=== PATIENT | female | born 1955 | race Caucasian/White ===

== ENCOUNTER 2020-11-17 08:20 | Outpatient (CLI) | payer MEDICARE, SELFPAY ==
--- NOTE | ~2020-11-17 | DEXA_ITS ---
Bone Density Report Name: Phyllis Mchugh Age: 65 Sex: Female Ethnicity: White Date of : 1955 Indication: postmenopausal; screening for osteoporosis; height loss; hysterectomy; Referring Provider: Adan*Teddy Turcios Study: Bone densitometry was performed. Exam Date: November 17, 2020 Accession number: [id number] Bone Density: Region BMD T-score Z-score Classification AP Spine(L2, L3, L4) 1.184 1.0 2.9 Normal Femoral Neck (Left) 0.896 0.4 2.0 Normal Total Hip (Left) 1.048 0.9 2.2 Normal Femoral Neck (Right) 0.775 -0.7 0.9 Normal Total Hip (Right) 0.982 0.3 1.6 Normal Femoral Neck Mean 0.836 -0.1 1.5 Normal Total Hip Mean 1.015 0.6 1.9 Normal World Health Organization criteria for BMD impression classify patients as: Normal (T-score at or above -1.0), Osteopenia (T-score between -1.0 and -2.5), or Osteoporosis (T-score at or below -2.5). 10-year Fracture Risk: FRAX not reported because: All T-scores for Spine Total, Hip Total, Femoral Neck at or above -1.0 Clinical Information Provided by Patient: Has used the following medications: Vitamin D, Calcium Has the following medical conditions: Hysterectomy Patient maximum height was 60 Menopause Age: 37 Onset of menses at age 12 Number of children 1 Impression: The patient has normal bone mass. Discussion: BONE DENSITY IS ABOVE THE MINIMUM DESIRABLE LEVEL AT ALL SKELETAL SITES TESTED. This patient?s bone mineral density is above the minimum desirable level (T-score -1.0 or better) at all sites measured. The patient should follow a healthful lifestyle (good nutrition with adequate calcium and vitamin D, and appropriate weight-bearing exercise). Follow-Up: Consider repeating this study in 5 years or sooner if there is some new clinical indication. Reported by: Dr. Jonathan Mariano on 11/17/2020 8:51:00 AM. Reviewed, dictated and finalized at location AJohn GUADALUPE
== END 2020-11-17 08:21 | disposition home or self-care (01) ==
LOC: CHSIMG 08:26
PROVIDERS: PCP Family Medicine; Visit Provider Family Medicine
DX: Z78.0 Asymptomatic menopausal state (principal)
CPT/HCPCS: 77080

== ENCOUNTER 2023-04-09 07:46 | Outpatient (RCR) | payer MEDICARE, SELFPAY ==
--- NOTE | 2023-04-09 08:21 | OPREHPOC ---
Outpatient Therapy Plan of Care This is a Multidisciplinary Plan of Care that may contain components documented by all disciplines (PT, OT, and ST.) PT Problem 1 PT Problem #1 Knowledge Deficit PT Goal 1 Goal Patient to demonstrate independence with HEP Target Visit 6 PT Problem 2 PT Problem #2 Pain PT Goal 1 Goal 1. Patient to report highest pain at 2/10 2. Patient to report no sleep disturbance due to cervical pain Target Visit 9 PT Problem 3 PT Problem #3 Impaired Range of Motion PT Goal 1 Goal Patient to demonstrate 70 deg of B cervical rotation to return to driving and checking blind spot at PLOF Target Visit 9 PT Problem 4 PT Problem #4 Impaired Functional Mobil PT Goal 1 Goal Patient to report ability to sit to watch TV for > 1 hour with no increase in cervical pain or reports of headache Target Visit 9
--- NOTE | 2023-04-09 08:21 | PTOPEVAL1 ---
Assessment and note entered by Eunice Bourne DPT Evaluation Information Assessment Status Evaluation Diagnosis neck pain Onset 04/02/23 Subjective Information She reports in October she tripped when a young girl ran out in front of her and she fell to the L side and thinks she pulled a muscle in her neck. She reports pain comes and goes. She reports pain will radiate into the L shoulder and will give her headache. She reports pain is worse with turning to look over her shoulder when driving, sitting to watch tv and occassionally sleeping. She reports no history of neck pain prior. She reports she is retired. Reported Pain Level Pain Score 1: Self Report Assessment PT Clinical Summary Mrs. Mchugh is a 67 year old female who presents to PT with cervical pain. Patient demonstrates impaired posture, decreased cervical ROM and decreased flexibility of B upper traps impairing her ability to drive, sleep and sit for long periods of time. She would benefit from skilled PT to address impairments and return to PLOF. Plan of Care Interventions Electrical Stimulation,Hot Pack/Cold Pack,Manual Therapy,Mechanical Traction,Neuro Re-education, Patient/Caregiver Educati,Therapeutic Activities, Therapeutic Exercise PT Services Indicated Yes Treatment Frequency and 3x weekly for 9 visits Duration These treatments will address the objective and functional deficits as defined above. The patient will be advanced safely and appropriately in order for the patient to progress towards his/her prior level of function. Additional exercises will be introduced and as well as a comprehensive home exercise program upon discharge, if needed, ?to ensure carryover of functional gains achieved in the clinic. This treatment plan has been reviewed and agreement upon by the patient.
--- NOTE | 2023-04-26 08:09 | OPREHPOC ---
Outpatient Therapy Plan of Care This is a Multidisciplinary Plan of Care that may contain components documented by all disciplines (PT, OT, and ST.) PT Problem 1 PT Problem #1 Knowledge Deficit PT Goal 1 Goal Patient to demonstrate independence with HEP Target Visit 6 Progress Met PT Problem 2 PT Problem #2 Pain PT Goal 1 Goal 1. Patient to report highest pain at 2/10 2. Patient to report no sleep disturbance due to cervical pain Target Visit 15 Comment continue PT Problem 3 PT Problem #3 Impaired Range of Motion PT Goal 1 Goal Patient to demonstrate 70 deg of B cervical rotation to return to driving and checking blind spot at PLOF Target Visit 15 Comment continue PT Problem 4 PT Problem #4 Impaired Functional Mobil PT Goal 1 Goal Patient to report ability to sit to watch TV for > 1 hour with no increase in cervical pain or reports of headache Target Visit 15 Comment continue
--- NOTE | 2023-04-26 08:09 | PTOPREEVAL ---
Assessment and note entered by Eunice Bourne DPT Evaluation Information Assessment Status Re-evaluation Diagnosis neck pain Onset 04/02/23 Subjective Information Patient reports that since starting PT she has not been having as much pain and does not have as much tightness. She does notice tightness when looking over her left shoulder but does report it has improved. She reports she has not gotten any headaches recently. She reports she still has difficulty with sleeping. She reports she has been independent with HEP Reported Pain Level Pain Score 1: Self Report Assessment PT Clinical Summary Mrs. Mchugh has been seen for 9 visits of skilled PT with good progress towards goals. She demonstrates improved cervical ROM, decreased pain and improved upper trap length. She reports improved ability to drive but continues to report difficulty with sleeping and sitting to watch TV. She would benefit from continued skilled PT to address remaining impairments and return to PLOF. Plan of Care Interventions Electrical Stimulation,Hot Pack/Cold Pack,Manual Therapy,Mechanical Traction,Neuro Re-education, Patient/Caregiver Educati,Therapeutic Activities, Therapeutic Exercise PT Services Indicated Yes Treatment Frequency and continue 2x weekly for 6 visits Duration These treatments will address the objective and functional deficits as defined above. The patient will be advanced safely and appropriately in order for the patient to progress towards his/her prior level of function. Additional exercises will be introduced and as well as a comprehensive home exercise program upon discharge, if needed, ?to ensure carryover of functional gains achieved in the clinic. This treatment plan has been reviewed and agreement upon by the patient.
--- NOTE | 2023-05-17 09:42 | OPREHPOC ---
Outpatient Therapy Plan of Care This is a Multidisciplinary Plan of Care that may contain components documented by all disciplines (PT, OT, and ST.) PT Problem 1 PT Problem #1 Knowledge Deficit PT Goal 1 Goal Patient to demonstrate independence with HEP Target Visit 6 Progress Met PT Problem 2 PT Problem #2 Pain PT Goal 1 Goal 1. Patient to report highest pain at 2/10 2. Patient to report no sleep disturbance due to cervical pain Target Visit 15 Progress Not Met Comment continue PT Problem 3 PT Problem #3 Impaired Range of Motion PT Goal 1 Goal Patient to demonstrate 70 deg of B cervical rotation to return to driving and checking blind spot at PLOF Target Visit 15 Progress Not Met Comment continue PT Problem 4 PT Problem #4 Impaired Functional Mobil PT Goal 1 Goal Patient to report ability to sit to watch TV for > 1 hour with no increase in cervical pain or reports of headache Target Visit 15 Progress Met Comment continue
--- NOTE | 2023-05-17 09:42 | PTOPDC ---
Assessment and note entered by Eunice Bourne DPT Evaluation Information Assessment Status Re-evaluation Diagnosis neck pain Onset 04/02/23 Subjective Information Patient reports she has improved since starting PT . She reports she continues to feel like she is tight . She denies recent headaches. She reports she can watch tv and drive with no limitations. Reported Pain Level Pain Score 1: Self Report Assessment PT Clinical Summary Mrs. Mchugh was seen for 15 visits of skilled PT. She did not meet all goals but made good progress towards all. She continues to lack cervical ROM but reports she has been able to check her blind spot when driving with no limitaitons. She reports no headaches. She is independent with HEP and is appropriate for DC at this time. Plan of Care PT Services Indicated No
== END 2023-05-17 16:21 | disposition home or self-care (01) ==
LOC: CHSPT 07:46
PROVIDERS: PCP Family Medicine; Visit Provider Family Medicine
DX: M54.12 Radiculopathy, cervical region (principal)
CPT/HCPCS: 97012; 97014; 97110; 97140; 97161; G0283

== ENCOUNTER 2023-06-18 07:29 | Outpatient (RCR) | payer MEDICARE, SELFPAY ==
--- NOTE | 2023-06-18 13:19 | OPREHPOC ---
Outpatient Therapy Plan of Care This is a Multidisciplinary Plan of Care that may contain components documented by all disciplines (PT, OT, and ST.) PT Problem 1 PT Problem #1 Knowledge Deficit PT Goal 1 Goal Patient to demonstrate independence with HEP Target Visit 5 PT Problem 2 PT Problem #2 Pain PT Goal 1 Goal 1. Patient to report highest pain at 2/10 2. Patient to report ability to sleep with no disturbance due to neck and shoulder pain Target Visit 10 PT Problem 3 PT Problem #3 Impaired Strength PT Goal 1 Goal Patient to demonstrate 5/5 strength of R shoulder to return to lifting for house hold tasks at PLOF Target Visit 10 PT Problem 4 PT Problem #4 Impaired Functional Mobil PT Goal 1 Goal 1. Patient to improve NDI by 20% 2. Patient to report ability to complete laundry tasks with no limitations 3. Patient to return to lifting 20# from floor to waist with no increase in pain Target Visit 10
--- NOTE | 2023-06-18 13:20 | PTOPEVAL1 ---
Assessment and note entered by Eunice Bourne DPT Evaluation Information Assessment Status Evaluation Diagnosis cervical pain, R shoulder pain Onset 06/14/23 Subjective Information Patient reports she started taking Levaquin on . Shortly after she developed neck pain, R shoulder pain and L hip pain. She sees an brake reliner who told patient that a reaction to Levaquin can be joint pain, weakness and increased risk of tears. She reports she was coming for neck pain a few months ago and was feeling good until starting the antibiotic. She has difficulty with lifting, completing house hold tasks, and sleeping. Prior to onset of this occurrence patient did not have R shoulder pain. Reported Pain Level Pain Score 2,0: Self Report Assessment PT Clinical Summary Mrs. Mchugh is a 68 year old female who presents to PT with cervical and R shoulder pain. She demonstrates decreased L cervical rotation, decreased R shoulder strength and impaired posture limiting her ability to lift, complete house hold tasks, and sleep. She would benefit from skilled PT to address impairments and return to PLOF. Plan of Care Interventions Electrical Stimulation,Gait Training,Hot Pack/Cold Pack,Manual Therapy,Mechanical Traction,Neuro Re- education,Patient/Caregiver Educati,Therapeutic Activities,Therapeutic Exercise PT Services Indicated Yes Treatment Frequency and 2x weekly for 10 visits Duration These treatments will address the objective and functional deficits as defined above. The patient will be advanced safely and appropriately in order for the patient to progress towards his/her prior level of function. Additional exercises will be introduced and as well as a comprehensive home exercise program upon discharge, if needed, ?to ensure carryover of functional gains achieved in the clinic. This treatment plan has been reviewed and agreement upon by the patient.
--- NOTE | 2023-06-26 08:02 | OPREHPOC ---
Outpatient Therapy Plan of Care This is a Multidisciplinary Plan of Care that may contain components documented by all disciplines (PT, OT, and ST.) PT Problem 1 PT Problem #1 Knowledge Deficit PT Goal 1 Goal Patient to demonstrate independence with HEP Target Visit 5 PT Problem 2 PT Problem #2 Pain PT Goal 1 Goal 1. Patient to report highest pain at 2/10 2. Patient to report ability to sleep with no disturbance due to neck and shoulder pain 3. patient to report no more than 2/10 pain in the L hip Target Visit 10 PT Problem 3 PT Problem #3 Impaired Strength PT Goal 1 Goal Patient to demonstrate 5/5 strength of R shoulder to return to lifting for house hold tasks at PLOF patient to demonstrate 4+/5 or greater bilateral hip strength Target Visit 10 PT Problem 4 PT Problem #4 Impaired Functional Mobil PT Goal 1 Goal 1. Patient to improve NDI by 20% 2. Patient to report ability to complete laundry tasks with no limitations 3. Patient to return to lifting 20# from floor to waist with no increase in pain 4. patient to display normal gait mechanics 5. patient to ambulate 1000ft or more in 6 minute walk test Target Visit 10
--- NOTE | 2023-06-26 08:02 | PTOPPROG ---
Assessment and note entered by JT File, PT Evaluation Information Assessment Status Progress Diagnosis cervical pain, R shoulder pain, L HIP PAIN Onset 06/14/23 Subjective Information patient reports at the time her neck and R shoulder pain began, she also began to have pain in the L hip. she reports on 05/29/23 she was laid up for several days with illness. she reports she was taking levaquin and believes she had a bad reaction to this med. she reports the neck and the R shoulder are better, but the L hip pain has continued. she reports she did have a bit of back pain at the time of being laid up, but it is better now. she reports she has had xrays of the L hip and lower back and reports minimal OA in the L hip, but severe lumbar spondylosis in the back. she reports the L hip really hurts in the hip flexor and her bursa. she reports she has pain increased when she goes to take a step. Assessment PT Clinical Summary mrs. johnston presents to skilled PT today with declining pain in the neck and R shoulder. however , her pain in the L hip continues to be problematic and impact her walking. she presents with tenderness to palpation on the L hip flexors and trochanteric bursa, decreased L hip strength, and antalgic gait mechanics. she would benefit from continued skilled PT with greater focus now on the L hip as this is her most problematic area. her goal is to stand and walk without pain or antalgia. Plan of Care Interventions Electrical Stimulation,Gait Training,Hot Pack/Cold Pack,Manual Therapy,Mechanical Traction,Neuro Re- education,Patient/Caregiver Educati,Therapeutic Activities,Therapeutic Exercise PT Services Indicated Yes Treatment Frequency and continue skilled PT with remaining visits on POC, Duration but shift focus towards the L hip. These treatments will address the objective and functional deficits as defined above. The patient will be advanced safely and appropriately in order for the patient to progress towards his/her prior level of function. Additional exercises will be introduced and as well as a comprehensive home exercise program upon discharge, if needed, ?to ensure carryover of functional gains achieved in the clinic. This treatment plan has been reviewed and agreement upon by the patient.
--- NOTE | 2023-07-19 08:35 | OPREHPOC ---
Outpatient Therapy Plan of Care This is a Multidisciplinary Plan of Care that may contain components documented by all disciplines (PT, OT, and ST.) PT Problem 1 PT Problem #1 Knowledge Deficit PT Goal 1 Goal Patient to demonstrate independence with HEP Target Visit 5 Progress Met PT Problem 2 PT Problem #2 Pain PT Goal 1 Goal 1. Patient to report highest pain at 2/10 2. Patient to report ability to sleep with no disturbance due to neck and shoulder pain 3. patient to report no more than 2/10 pain in the L hip Target Visit 10 Progress Met PT Problem 3 PT Problem #3 Impaired Strength PT Goal 1 Goal Patient to demonstrate 5/5 strength of R shoulder to return to lifting for house hold tasks at PLOF patient to demonstrate 4+/5 or greater bilateral hip strength Target Visit 10 Progress Met PT Problem 4 PT Problem #4 Impaired Functional Mobil PT Goal 1 Goal 1. Patient to improve NDI by 20% 2. Patient to report ability to complete laundry tasks with no limitations 3. Patient to return to lifting 20# from floor to waist with no increase in pain 4. patient to display normal gait mechanics 5. patient to ambulate 1000ft or more in 6 minute walk test Target Visit 10 Progress Met
--- NOTE | 2023-07-19 08:35 | PTOPDC ---
Assessment and note entered by Eunice oRwley DPT Evaluation Information Assessment Status Discharge Diagnosis cervical pain, R shoulder pain, L HIP PAIN Onset 06/14/23 Subjective Information patient reports her neck and shoulder have not had any pain. she reports her hip pain has been very minimal. she states she has been able to return to all previous activities. she is independent with HEP Reported Pain Level Pain Score 1,0,0: Self Report Assessment PT Clinical Summary Mrs. Mchugh has attended 10 visits of skilled PT with significant progress and has met all goals. She reports she has been able to return to all daily activities at [facility]. She has improved strength, ROM and gait. She is independent with HEP and is appropriate for DC at this time. Plan of Care PT Services Indicated No
== END 2023-07-19 10:12 | disposition home or self-care (01) ==
LOC: CHSPT 07:29
PROVIDERS: PCP Family Medicine; Visit Provider Family Medicine
DX: M54.12 Radiculopathy, cervical region (principal)
CPT/HCPCS: 97014; 97110; 97140; 97150; 97161; G0283

== ENCOUNTER 2023-06-21 14:07 | Outpatient (CLI) | payer MEDICARE, SELFPAY ==
--- NOTE | ~2023-06-21 | XR_ITS ---
EXAMINATION: XR lumbar spine 2-3V DATE: 06/21/2023 14:42 INDICATION: Left hip pain. TECHNIQUE: 3 views of lumbar spine were obtained. COMPARISON: None. FINDINGS: There is 13 degrees dextroscoliosis of lumbar spine. There is 4 mm retrolisthesis of L2 on L3 and 3 mm retrolisthesis of L3 on L4 and L4 on L5. Vertebral body heights are normal. There is mode rately decreased disc height at L1-L2 and severely decreased disc height from L2-L3 through L5-S1 wit h endplate remodeling. There is multilevel severe facet joint osteoarthritis. IMPRESSION: 1. Severe lumbar spondylosis. 2. Lumbar dextroscoliosis. Reviewed, dictated and finalized at location E. LLITE MANAGER
--- NOTE | ~2023-06-21 | XR_ITS ---
EXAMINATION: XR hip LT min 2V DATE: 06/21/2023 14:42 INDICATION: Left hip pain TECHNIQUE: Anteroposterior and frog-leg lateral views of the left hip were obtained. COMPARISON: None. FINDINGS: Alignment is normal. No fracture. No suspected osteonecrosis. Mild left hip osteoarthritis minimal ax ial predominant nonuniform joint space narrowing and small marginal osteophytes about the femoral hea d and acetabulum. Several phleboliths in the pelvis. Soft tissues are unremarkable. IMPRESSION: 1. Mild left hip osteoarthritis. Reviewed, dictated and finalized at location A. LY PSYCHOLOGIST
== END 2023-06-21 14:08 | disposition home or self-care (01) ==
LOC: CHSIMG 14:09
PROVIDERS: PCP Internal Medicine; Visit Provider Internal Medicine
DX: M25.552 Pain in left hip (principal); M43.06 Spondylolysis, lumbar region; M41.86 Other forms of scoliosis, lumbar region; M16.12 Unilateral primary osteoarthritis, left hip
CPT/HCPCS: 72100; 73502

== ENCOUNTER 2024-03-02 14:17 | Outpatient (RCR) | payer MEDICARE, SELFPAY ==
--- NOTE | 2024-03-02 15:28 | PTOPEVAL1 ---
Assessment and note entered by Brian Rothman Evaluation Information Assessment Status Evaluation ICD-10 Condition Codes (PT) M25.572 Onset 12/28/23 Subjective Information Pt. reports that she developed left ankle pain on 12/28/23. She reports that she was walking in heels and rolled the ankle into a described inversion sprain on the left. She reports that pain was not initial, but worsened by the next day . She reports she went to the doctor and underwent x-ray and MRI. MRI revealed an osteochondral defect at the left ankle. She describes pain on the inside of the left ankle. She states that pain is noticeable with standing activities. She reports that she cannot comfortably wear dress shoes and feels more stable in her tennis shoes. She reports that her goal is to improve her ankle strength and decrease her pain. Reported Pain Level Pain Score 1: Self Report Assessment PT Clinical Summary Pt. is a 68 year old female who enters the clinic with left ankle pain following described left ankle inversion sprain. she presents with indications of chronic instability at the right and left ankle. She currently presents with ankle and hip weakness, instability at the bilateral ankles, pain and impaired gait. Continued skilled PT is indicated in order to improve these areas to allow the pt. to be able to participate in all IADL's with improved comfort and decreased risk of future injury. Plan of Care Interventions Electrical Stimulation,Gait Training,Hot Pack/Cold Pack,Manual Therapy,Neuro Re-education,Patient/ Caregiver Educati,Therapeutic Activities, Therapeutic Exercise PT Services Indicated Yes Treatment Frequency and 2x/week x 8 visits Duration These treatments will address the objective and functional deficits as defined above. The patient will be advanced safely and appropriately in order for the patient to progress towards his/her prior level of function. Additional exercises will be introduced and as well as a comprehensive home exercise program upon discharge, if needed, ?to ensure carryover of functional gains achieved in the clinic. This treatment plan has been reviewed and agreement upon by the patient.
--- NOTE | 2024-03-02 15:28 | OPREHPOC ---
Outpatient Therapy Plan of Care This is a Multidisciplinary Plan of Care that may contain components documented by all disciplines (PT, OT, and ST.) PT Problem 1 PT Problem #1 Knowledge Deficit PT Goal 1 Goal / Goal Update Pt. will be independent with a HEP addressing ankle strength and stability Target Visit 2 PT Problem 2 PT Problem #2 Impaired Strength PT Goal 1 Goal / Goal Update Pt. will demonstrate 4+/5 or greater bilateral hip abduction strength Pt. will maintain SLS on both right and left without support for 30 seconds or greater with no LOB. Target Visit 8 PT Problem 3 PT Problem #3 Impaired Functional Mobil PT Goal 1 Goal / Goal Update Pt. will demonstrate ability to walk outdoors on uneven terrain for duration of 10 minutes without pain increase and no indication of instability. Target Visit 8
--- NOTE | 2024-03-25 08:40 | OPREHPOC ---
Outpatient Therapy Plan of Care This is a Multidisciplinary Plan of Care that may contain components documented by all disciplines (PT, OT, and ST.) PT Problem 1 PT Problem #1 Knowledge Deficit PT Goal 1 Goal / Goal Update Pt. will be independent with a HEP addressing ankle strength and stability Target Visit 2 Progress Met PT Problem 2 PT Problem #2 Impaired Strength PT Goal 1 Goal / Goal Update Pt. will demonstrate 4+/5 or greater bilateral hip abduction strength Pt. will maintain SLS on both right and left without support for 30 seconds or greater with no LOB. Target Visit 8 Progress Met PT Problem 3 PT Problem #3 Impaired Functional Mobil PT Goal 1 Goal / Goal Update Pt. will demonstrate ability to walk outdoors on uneven terrain for duration of 10 minutes without pain increase and no indication of instability. Target Visit 8 Progress Met
--- NOTE | 2024-03-25 08:40 | PTOPDC ---
Assessment and note entered by JT File, PT Evaluation Information Assessment Status Discharge ICD-10 Condition Codes (PT) M25.572 Onset 12/28/23 Subjective Information patient reports the ankle feels great today. she reports she has had no more than 1/10 pain in the L ankle in the last week or more. she reports she only has issues when up and active for a long time. she reports she is able to recuperate with exercises, ice, and rest. she reports she feels she is ready to DC therapy today. Reported Pain Level Pain Score 0: Self Report Pain Score 1: Self Report Assessment PT Clinical Summary mrs. johnston presents to skilled PT services for her 8th skilled PT visit. she displays full L ankle strength, and achievement of all goals for skilled PT today. patient is compliant with her HEP, and ready for DC today. Plan of Care PT Services Indicated Yes
== END 2024-03-25 09:33 | disposition home or self-care (01) ==
LOC: CHSPT 14:17
DX: M25.572 Pain in left ankle and joints of left foot (principal)
CPT/HCPCS: 97110; 97112; 97140; 97161

== ENCOUNTER 2024-04-09 16:20 | Emergency (ER) | payer MEDICARE, SELFPAY ==
--- NOTE | ~2024-04-09 | XR_ITS ---
XR ankle RT min 3V Ordering provider: Karson Sherman DO History: . RT ankle pain/tender to the touch after rolling X 1 hour [employer] . Comparison: None. FINDINGS: BONES: Undisplaced Fracture of the lateral malleolus tip. JOINT SPACES: Normal. SOFT TISSUES: Soft tissue swelling over the lateral malleolus. Calcaneus spur. Ossification of the insertion of the tendo Achilles. IMPRESSION: Fracture lateral malleolus with no displacement. Reviewed, dictated and finalized at location [facility] [employer]
[2024-04-09 16:23] VITALS: BP 186/83; PULSE 86; RESP 18; TEMP 36.6; O2SAT 99
--- NOTE | 2024-04-09 16:26 | ED.GENADULT ---
HPI - General Adult General Chief complaint: Extremity Injury, Lower Stated complaint: right ankle pain Time Seen by Provider: 04/09/24 16:21 History of Present Illness HPI narrative: Phyllis presented to the ED after she rolled her right ankle in a hole in the parking lot and had pain in the posterior lateral ankle. No other injuries reported. Related Data Home Medications Medication Instructions Recorded Confirmed albuterol 90 mcg-budesonide 80 2 inh inhalation Q4H 04/09/24 04/09/24 mcg/actuation HFA aerosol inhaler (Airsupra) azelastine 137 mcg (0.1 %) nasal 1 - 2 spray intranasal BID 04/09/24 04/09/24 spray budesonide 0.5 mg/2 mL suspension 0.5 mg inhalation DIRECTED 04/09/24 04/09/24 for nebulization montelukast 10 mg tablet 10 mg PO DAILY 04/09/24 04/09/24 rosuvastatin 20 mg tablet 20 mg PO DAILY 04/09/24 04/09/24 Allergies Allergy/AdvReac Type Severity Reaction Status Date / Time codeine Allergy Unknown Unknown Unverified 04/09/24 16:25 levofloxacin [From Levaquin] Allergy Unknown Unknown Verified 04/09/24 16:25 TAPE Allergy Unknown Unknown Uncoded 04/09/24 16:25 Review of Systems Review of Systems: All systems reviewed & are unremarkable except as noted in HPI and below Exam Const: General: cooperative, healthy appearing, comfortable, no acute distress, well developed, alert, awake and Physically active Orientation/consciousness: oriented to person, oriented to place and oriented to time HENMT: Head: normal to inspection, normocephalic and atraumatic Ears: hearing grossly normal bilaterally and external ears normal Face/Nose/Sinus: Normal external nose present Eyes: General: appearance normal, both eyes and all related structures Periorbital: periorbital findings normal Sclera: sclerae normal Pupils: Equal, round and reactive pupils present Neck: Neck: normal visual inspection Chest: Chest palpation & inspection: normal inspection of the chest Resp: Effort & Inspection: normal respiratory effort, able to speak in complete sentences and no respiratory distress Cardio: Jugular venous distension: no JVD Skin: General skin exam: normal color and no rashes or lesions noted Neuro: General: oriented to person, oriented to place and oriented to time Cranial nerves: Yes Equal, round and reactive pupils present Extrem: General: normal to inspection Other: Right lateral posterior ankle was TTP. No other spots were tender. No deformity or discoloration Course Course Emergency Course: Declined pain meds. XR ankle RT min 3V Ordering provider: Karson Sherman DO History: . RT ankle pain/tender to the touch after rolling X 1 hour [employer] . Comparison: None. FINDINGS: BONES: Undisplaced Fracture of the lateral malleolus tip. JOINT SPACES: Normal. SOFT TISSUES: Soft tissue swelling over the lateral malleolus. Calcaneus spur. Ossification of the insertion of the tendo Achilles. IMPRESSION: Fracture lateral malleolus with no displacement. Vital Signs Vital signs: Vital Signs Temperature 97.9 F 04/09/24 16:23 Pulse Rate 86 04/09/24 16:23 Respiratory Rate 18 04/09/24 16:23 Blood Pressure 186/83 H 04/09/24 16:23 Pulse Oximetry 99 04/09/24 16:23 Oxygen Delivery Room Air 04/09/24 16:23 Temperature 97.9 F 04/09/24 16:23 Pulse Rate 86 04/09/24 16:23 Respiratory Rate 18 04/09/24 16:23 Blood Pressure 186/83 H 04/09/24 16:23 Pulse Oximetry 99 04/09/24 16:23 Oxygen Delivery Room Air 04/09/24 16:23 Medical Decision Making Vital Signs Vital Signs: Vital Signs Temperature 97.9 F 04/09/24 16:23 Pulse Rate 86 04/09/24 16:23 Respiratory Rate 18 04/09/24 16:23 Blood Pressure 186/83 H 04/09/24 16:23 Pulse Oximetry 99 04/09/24 16:23 Oxygen Delivery Room Air 04/09/24 16:23 Temperature 97.9 F 04/09/24 16:23 Pulse Rate 86 04/09/24 16:23 Respiratory Rate 18 04/09/24 16:23 Blood Pressure 186/83 H 04/09/24 16:23 Pulse Oximetry 99 04/09/24 16:23 Oxygen Delivery Room Air 04/09/24 16:23 Discharge Plan Discharge Clinical Impression: Ankle fracture, lateral malleolus, closed Patient Disposition: Home, Self-Care Condition: Stable Instructions: Ankle Fracture (ED) Prescriptions: New hydrocodone-acetaminophen 5-325 mg tablet 1 tablet PO Q8H PRN (Reason: pain) Qty: 10 0RF No Action budesonide 0.5 mg/2 mL suspension for nebulization 0.5 mg inhalation DIRECTED montelukast 10 mg tablet 10 mg PO DAILY azelastine 137 mcg (0.1 %) spray,non-aerosol 1 - 2 spray INTRANASAL BID rosuvastatin 20 mg tablet 20 mg PO DAILY Airsupra 90-80 mcg/actuation HFA aerosol inhaler 2 inh INHALATION Q4H Follow-up/Referrals: Khoi Angulo MD [Primary Care Provider] -
[2024-04-09 16:32] VITALS: BP 155/92
[2024-04-09 17:07] VITALS: BP 147/81; PULSE 80; RESP 16; TEMP 36.6; O2SAT 100
== END 2024-04-09 17:07 | disposition home or self-care (01) ==
LOC: CHSED 17:01
PROVIDERS: Emergency Provider Family Medicine; PCP Internal Medicine
DX: S82.61XA Displaced fracture of lateral malleolus of right fibula, initial encounter for closed fracture (principal); Z79.899 Other long term (current) drug therapy; X50.0XXA Overexertion from strenuous movement or load, initial encounter
CPT/HCPCS: 29515; 73610; 99284

== ENCOUNTER 2024-04-21 13:33 | Outpatient (CLI) | payer MEDICARE, SELFPAY ==
[2024-04-22 11:08] LABS: Homocysteine 8.9 umol/L (<10.4)
[2024-04-23 15:18] LABS: Lupus dRVVT Confirmation NEGATIVE (NEGATIVE); Lupus dRVVT Screen 61 sec (< OR = 45); PTT-LA Screen 33 sec (< OR = 40)
[2024-04-24 09:53] LABS: Protein S Antigen, Free 152 % normal (50-147); Protein S Antigen, Total 152 % normal (70-140)
[2024-04-24 21:38] LABS: Antithrombin III Activity 103 % normal (80-135)
[2024-04-25 03:23] LABS: APC Ratio 5.1 ratio (>=2.1)
[2024-04-25 04:29] LABS: Anti Cardio Antibody IgM <2.0 MPL-U/mL; Anti Cardiolipin Antibody IgA <2.0 APL-U/mL; Anti Cardiolipin Antibody IgG <2.0 GPL-U/mL
[2024-04-26 20:08] LABS: Factor VIII Activity 101 % normal (50-180)
[2024-04-30 16:25] LABS: Reference Lab Test Name FACTOR V (LEIDEN)
== END 2024-04-21 13:34 | disposition home or self-care (01) ==
LOC: CHSLAB 13:35
PROVIDERS: PCP Internal Medicine; Visit Provider Internal Medicine
DX: I82.409 Acute embolism and thrombosis of unspecified deep veins of unspecified lower extremity (principal)
CPT/HCPCS: 36415; 81240; 81241; 81291; 83090; 85240; 85300; 85303; 85305; 85306; 85307; 85597; 85598; 85613; 85670; 85730; 86146; 86147

== ENCOUNTER 2024-05-27 08:30 | Outpatient (RCR) | payer MEDICARE, SELFPAY ==
--- NOTE | 2024-05-27 09:47 | OPREHPOC ---
Outpatient Therapy Plan of Care This is a Multidisciplinary Plan of Care that may contain components documented by all disciplines (PT, OT, and ST.) PT Problem 1 PT Problem #1 Knowledge Deficit PT Goal 1 Goal / Goal Update The patient will be independent in a home exercise program. Target Visit 4 PT Problem 2 PT Problem #2 Pain PT Goal 1 Goal / Goal Update The patient will report no greater than 1/10 right ankle pain with return to ambulation without an AD and full weight bearing on the right LE. Target Visit 16 PT Problem 3 PT Problem #3 Impaired Functional Mobility PT Goal 1 Goal / Goal Update The patient will demonstrate 30% or less self perceived disability per the LEFS questionnaire. The patient will ambulate 1,000 feet with the least restrictive assistive device during the 6 minute walk test to improve community ambulation. Target Visit 16 PT Problem 4 PT Problem #4 Impaired Range of Motion PT Goal 1 Goal / Goal Update The patient will demonstrate 10 degrees of right ankle dorsiflexion and 50 degrees of right ankle plantarflexion to improve gait. Target Visit 8 PT Problem 5 PT Problem #5 Impaired Strength PT Goal 1 Goal / Goal Update The patient will demonstrate 5/5 right ankle strength in all planes. The patient will demonstrate the ability to perform 10 repetitions of right single leg heel raises. Target Visit 16
--- NOTE | 2024-05-27 09:47 | PTOPEVAL1 ---
Assessment and note entered by Sarah Vega, PT Evaluation Information Assessment Status Evaluation Diagnosis s/p R ankle fx ICD-10 Condition Codes (PT) Pain in right ankle and joints of right foot M25. 571 Onset 04/09/24 Subjective Information Phyllis Mchugh reports she was walking in a parking lot and she hit a small hole with her heel and twisted her ankle. She fell to the ground and had to have help getting up because she could not put weight on it. She reports the ankle swelled up immediately so she went to the ER. She had x- rays that showed a fracture. She called her water treatment specialist on 04/13/24 and was put in a casted splint to allow swelling to go down. She had a doppler to check for blood clots before casting it. She had 4 small clots so she was kept in a boot and started on Eliquis. She was non- weight bearing for last 6 weeks and has been using a knee scooter. She has been going up and down stairs on her knees to get in and out of her house . She was allowed to start putting weight on the right LE last week and began using a walker around the house. She has not had a lot of pain recently even with began to start weight bearing. She has not been driving since the injury. She reports she is afraid of falling. Reported Pain Level Pain Score 0: Self Report Assessment PT Clinical Summary Phyllis Mchugh presents nearly 7 weeks s/p right lateral malleolus ankle fracture. She is reporting difficulty with walking, standing, driving, and navigating stairs. She objectively demonstrates decreased right ankle AROM, decreased right ankle strength, impaired gait, impaired balance, and decreased functional abilities. She will benefit from skilled PT to address these limitations. Plan of Care Interventions Electrical Stimulation,Gait Training,Hot Pack/Cold Pack,Intermittent Compression Pump,Manual Therapy ,Neuro Re-education,Patient/Caregiver Education, Therapeutic Activities,Therapeutic Exercise PT Services Indicated Yes Treatment Frequency and 2 times a week for 8 visits Duration These treatments will address the objective and functional deficits as defined above. The patient will be advanced safely and appropriately in order for the patient to progress towards his/her prior level of function. Additional exercises will be introduced and as well as a comprehensive home exercise program upon discharge, if needed, ?to ensure carryover of functional gains achieved in the clinic. This treatment plan has been reviewed and agreement upon by the patient.
--- NOTE | 2024-06-11 10:03 | OPREHPOC ---
Outpatient Therapy Plan of Care This is a Multidisciplinary Plan of Care that may contain components documented by all disciplines (PT, OT, and ST.) PT Problem 1 PT Problem #1 Knowledge Deficit PT Goal 1 Goal / Goal Update The patient will be independent in a home exercise program. Target Visit 4 Progress Met PT Goal 2 Goal / Goal Update continue to progress as weight bearing status changes Target Visit 16 PT Problem 2 PT Problem #2 Pain PT Goal 1 Goal / Goal Update The patient will report no greater than 1/10 right ankle pain with return to ambulation without an AD and full weight bearing on the right LE. Target Visit 16 Progress Partially Met PT Goal 2 Goal / Goal Update continue PT Problem 3 PT Problem #3 Impaired Functional Mobility PT Goal 1 Goal / Goal Update The patient will demonstrate 30% or less self perceived disability per the LEFS questionnaire. The patient will ambulate 1,000 feet with the least restrictive assistive device during the 6 minute walk test to improve community ambulation. Target Visit 16 Progress Partially Met PT Goal 2 Goal / Goal Update continue PT Problem 4 PT Problem #4 Impaired Range of Motion PT Goal 1 Goal / Goal Update The patient will demonstrate 10 degrees of right ankle dorsiflexion and 50 degrees of right ankle plantarflexion to improve gait. Target Visit 8 Progress Partially Met PT Goal 2 Goal / Goal Update continue Target Visit 16 PT Problem 5 PT Problem #5 Impaired Strength PT Goal 1 Goal / Goal Update The patient will demonstrate 5/5 right ankle strength in all planes. The patient will demonstrate the ability to perform 10 repetitions of right single leg heel raises. Target Visit 16 Progress Not Met PT Goal 2 Goal / Goal Update continue
--- NOTE | 2024-06-11 10:04 | PTOPPROG ---
Assessment and note entered by Sarah Vega, PT Evaluation Information Assessment Status Progress Diagnosis s/p R ankle fx ICD-10 Condition Codes (PT) Pain in right ankle and joints of right foot M25. 571 Onset 04/09/25 Subjective Information Phyllis Mchugh reports her right ankle is doing well. She has not been having pain in it lately. She continues to wear the boot at all times and has been walking with just one crutch when she is out and about and no AD in her home. She will see her doctor on 06/15/24 and is hoping she will be able to start weaning away from the boot. Assessment PT Clinical Summary Phyllis Mchugh has completed 6 skilled PT visits following a right ankle fracture sustained on 07/06. She is reporting no pain in the right ankle and foot and has been wearing her boot at all times. She demonstrates improved right ankle ROM and has been progressing with ankle strengthening in non-weight bearing and performing functional LE strengthening in closed kinetic chain with her right ankle boot on. She has been able to progress from bilateral axillary crutches to no AD with the boot while ambulating in the clinic. She is still utilizing one axillary crutch and the boot when ambulating in public places. She continues to have decreased right ankle and foot strength and stability, decreased balance, and impaired gait. She will continue to benefit from skilled PT to further address these limitations. Plan of Care Interventions Gait Training,Patient/Caregiver Education, Therapeutic Activities,Therapeutic Exercise PT Services Indicated Yes Treatment Frequency and Continue 2 times a week for 8 additional visits Duration These treatments will address the objective and functional deficits as defined above. The patient will be advanced safely and appropriately in order for the patient to progress towards his/her prior level of function. Additional exercises will be introduced and as well as a comprehensive home exercise program upon discharge, if needed, ?to ensure carryover of functional gains achieved in the clinic. This treatment plan has been reviewed and agreement upon by the patient.
--- NOTE | 2024-07-09 09:42 | OPREHPOC ---
Outpatient Therapy Plan of Care This is a Multidisciplinary Plan of Care that may contain components documented by all disciplines (PT, OT, and ST.) PT Problem 1 PT Problem #1 Knowledge Deficit PT Goal 1 Goal / Goal Update The patient will be independent in a home exercise program. Target Visit 4 Progress Met PT Goal 2 Goal / Goal Update continue to progress as weight bearing status changes Target Visit 16 Progress Met PT Problem 2 PT Problem #2 Pain PT Goal 1 Goal / Goal Update The patient will report no greater than 1/10 right ankle pain with return to ambulation without an AD and full weight bearing on the right LE. Target Visit 16 Progress Met PT Goal 2 Goal / Goal Update continue Progress Met PT Problem 3 PT Problem #3 Impaired Functional Mobility PT Goal 1 Goal / Goal Update The patient will demonstrate 30% or less self perceived disability per the LEFS questionnaire. The patient will ambulate 1,000 feet with the least restrictive assistive device during the 6 minute walk test to improve community ambulation. Target Visit 16 Progress Met PT Goal 2 Goal / Goal Update continue Progress Met PT Problem 4 PT Problem #4 Impaired Range of Motion PT Goal 1 Goal / Goal Update The patient will demonstrate 10 degrees of right ankle dorsiflexion and 50 degrees of right ankle plantarflexion to improve gait. Target Visit 8 Progress Met PT Goal 2 Goal / Goal Update continue Target Visit 16 Progress Met PT Problem 5 PT Problem #5 Impaired Strength PT Goal 1 Goal / Goal Update The patient will demonstrate 5/5 right ankle strength in all planes. The patient will demonstrate the ability to perform 10 repetitions of right single leg heel raises. Target Visit 16 Progress Met PT Goal 2 Goal / Goal Update continue Progress Met
--- NOTE | 2024-07-09 09:42 | PTOPDC ---
Assessment and note entered by Sarah Vega, PT Evaluation Information Assessment Status Discharge Diagnosis s/p R ankle fx ICD-10 Condition Codes (PT) Pain in right ankle and joints of right foot M25. 571 Onset 04/09/25 Subjective Information Phyllis Mchugh reports her right ankle is doing well. She is not having pain and feels she can do all her normal daily activities without difficulty . Reported Pain Level Pain Score 0: Self Report Assessment PT Clinical Summary Phyllis Mchugh has completed 14 skilled PT visits for a right ankle fracture sustained on 04/09/25. She is reporting no pain in her right ankle and the ability to perform all previous daily activities. She objectively demonstrates improved right ankle AROM to normal ranges, improved right ankle strength, improved balance, and improved gait to normal mechanics. She does demonstrate mild functional weakness with right single leg heel raises. She is independent in a home exercise program to continue ankle strength and stability. She has met __ goals and will be discharged from skilled PT. Plan of Care PT Services Indicated No
== END 2024-07-09 16:55 | disposition home or self-care (01) ==
LOC: CHSPT 08:30
DX: S82.891A Other fracture of right lower leg, initial encounter for closed fracture (principal)
CPT/HCPCS: 97110; 97116; 97161; 97530; 97750

== ENCOUNTER 2024-07-14 15:48 | Outpatient (RCR) | payer MEDICARE, SELFPAY ==
--- NOTE | 2024-07-14 16:33 | PTOPEVAL1 ---
Assessment and note entered by Eunice Rowley DPT Evaluation Information Assessment Status Evaluation Diagnosis R ankle pain ICD-10 Condition Codes (PT) Pain in right ankle and joints of right foot M25. 571 Onset 04/09/24 Subjective Information Patient fell on 03/30/24 and fractured her R ankle . She had been doing PT and has made significant progress. Patient reports she went back to the [facility] and x-rays showed that fracture was not completely healed yet and they wanted her to do more therapy . She reports she has continued to HEP. She reports she has pain after being on her feet all day and feels unstable on uneven ground. She returns to [facility] in September. Reported Pain Level Pain Score 0: Self Report Assessment PT Clinical Summary Mrs. Mchugh is a 69 year old female who presents to PT with R ankle weakness and instability. She demonstrates decreased R ankle strength and stability and decreased R ankle ROM impairing her ability to navigate prolonged distances and ambulate on uneven surfaces. She will benefit from skilled PT to address impairments and return to [facility]. Plan of Care Interventions Electrical Stimulation,Gait Training,Hot Pack/Cold Pack,Manual Therapy,Therapeutic Activities, Therapeutic Exercise PT Services Indicated Yes Treatment Frequency and 1x weekly for 6 weeks Duration These treatments will address the objective and functional deficits as defined above. The patient will be advanced safely and appropriately in order for the patient to progress towards his/her prior level of function. Additional exercises will be introduced and as well as a comprehensive home exercise program upon discharge, if needed, ?to ensure carryover of functional gains achieved in the clinic. This treatment plan has been reviewed and agreement upon by the patient.
--- NOTE | 2024-08-18 08:45 | PTOPDC ---
Assessment and note entered by Eunice Rowley DPT Evaluation Information Assessment Status Re-evaluation Diagnosis R ankle pain ICD-10 Condition Codes (PT) Pain in right ankle and joints of right foot M25. 571 Onset 04/09/24 Subjective Information Patient reports she has returned to all of her prior activities at [facility]. She reports she does wear her brace when she goes out to do yard work. She reports she has been compliant with HEP. Reported Pain Level Pain Score 0: Self Report Assessment PT Clinical Summary Mr. Mchugh attended 6 visits of skilled PT with great progress towards goals. She denies pain the ankle and reports she has been able to return to all previous activities at [facility]. She reports she is compliant with HEP and has been able to work out in her yard. She ill be discharged from skilled PT at this time. Plan of Care PT Services Indicated No
== END 2024-08-18 20:00 | disposition home or self-care (01) ==
LOC: CHSPT 15:48
DX: M25.571 Pain in right ankle and joints of right foot (principal); S82.891D Other fracture of right lower leg, subsequent encounter for closed fracture with routine healing
CPT/HCPCS: 97110; 97112; 97150; 97161; 97530

== ENCOUNTER 2024-07-24 07:19 | Outpatient (CLI) | payer MEDICARE, SELFPAY ==
--- OUTSIDE RECORDS SUMMARY | 2024-07-24 07:28 | XMS_ITS | Clinical Summary ---
Author Organization [facility] Address [address] [place] [id number] Phone Care Team Providers Care Supervisor Warping Department Name Role Phone Unavailable Primary Care Provider Unavailabl e Allergies No known active allergies Medications montelukast (SINGULAIR) 10 mg Oral tablet Take 10 mg by mouth daily. Active LORATADINE (CLARITIN ORAL) Take by mouth. Active CETIRIZINE HCL (ZYRTEC ORAL) Take by mouth. Active Social History Tobacco Use Types Packs/Day Years Used Date Smoking Tobacco: Never Assessed Comments Unknown Sex and Gender Information Value Date Recorded Sex Assigned at Not on file Legal Sex Female 4:11 AM [employer] Gender Identity Not on file Sexual Orientation Not on file Occupation Industry Job Start Date Job End Date Not on file Not on file Not on file Not on file Last Filed Vital Signs Vital Sign Reading Time Taken Comments Blood Pressure 113/64 11/21/2012 10:13 AM CDT Pulse 62 11/21/2012 10:13 AM CDT Temperature - - Respiratory Rate 20 11/21/2012 10:13 AM CDT Oxygen Saturation 98% 11/21/2012 10:13 AM CDT Inhaled Oxygen Concentration - - Weight 63.5 kg (140 lb) 11/19/2012 7:57 AM CDT Height 157.5 cm (5' 2 ) 11/19/2012 7:57 AM CDT Body Mass Index 25.61 11/19/2012 7:57 AM CDT Plan of Treatment Health Maintenance Due Date Last Done Comments DTAP/TDAP/TD VACCINES (1 - Tdap) 1973 BREAST CANCER SCREENING 1994 COLORECTAL SCREENING 1999 Colorectal Cancer Screening 1999 FIT-DNA Q 3 years 1999 FIT/FOBT Q 1 year 1999 Flex Sig/CT Colonography Q 5 years 1999 PNEUMOCOCCAL VACCINE 50+ YEARS (1 of 1 - PCV) 05/17/19 ZOSTER VACCINE (1 of 2) 2004 OSTEOPOROSIS SCREENING 2019 INFLUENZA VACCINE (#1) 2023 RSV VACCINE (60+ or ) (1 - 1-dose 75+ series) 2029 Insurance [facility] Address: [facility] [id number] [place] [address] Advance Directives For more information, please contact: [phone] * Full Code (Latest Code Status on File) Date Activated Date Inactivated Comments 11/21/2012 9:05 AM 11/21/2012 12:36 PM
--- OUTSIDE RECORDS SUMMARY | 2024-07-24 07:28 | XMS_ITS | Clinical Summary ---
Author Organization [facility] Address [address] [place] [address] Care Team Providers Care Ping Pong Table Assembler Name Role Phone Teddy Saleh MD Primary Care Provider Social History Tobacco Use Types Packs/Day Years Used Date Smoking Tobacco: Never Assessed Comments Unknown Sex and Gender Information Value Date Recorded Sex Assigned at Not on file Legal Sex Female 5:52 PM REGISTERED NURSE STEP DOWN Gender Identity Not on file Sexual Orientation Not on file Plan of Treatment Health Maintenance Due Date Last Done Comments Colorectal Cancer Screening Colonoscopy (10 Years) 1954 Hepatitis C 1972 Mammogram Screening 1994 Annual Medicare Wellness Visit 2019 COVID-19 Vaccine ( season) 2024 08/02/2020, 07/11/2020 PHQ-2 (Physician [place]) 05/13/2024 DTaP, Tdap and Td Vaccines (2 - Td or Tdap) 11/25/2028 11/25/2018, 08/24/2010 RSV Immunization or 60+ Years (1 - 1-dose 75+ series) 2029 Zoster Vaccines Completed 01/01/2020, 11/06/2019 Pneumococcal Vaccine: 65+ Years Completed 02/26/2020, 05/08/2018 Dexa Scan (General) Completed 11/19/2022 Influenza Adult Completed 03/09/2024, 01/11, 03/02/2019, Additional history exists Meningococcal B Vaccine Aged Out No l onger eligible based on patient's age to complete this topic Meningococcal Vaccine Aged Out No anusha toni eligible based on patient's age to complete this topic RSV Immunizations Under 20 Months Aged Out No longer eligible based on patient's age to complete this topic Procedures Procedure Name Priority Date/Time Associated Diagnosis Comments BONE DENSITY/DEXA Routine 11/19/2022 2:4 0 PM CDT Postmenopausal from Last 3 Months or Most Recently Relevant to Health Maintenance Results * BONE DENSITY/DEXA (11/19/2022 2:40 PM CDT) Anatomical Region Laterality Modality Bone Bone Density 11/19/2022 2:58 PM CDT Impressions 11/19/2022 3:01 PM CDT Impression: Within normal limits in the lumbar spine and both hips. Ordered By: TEDDY SALEH Interpreted By: Anibal Blue MD, 11/19/2022 2:58 PM Narrative 11/19/2022 3:01 PM CDT Examination: DEXA Bone densitometry Clinical history: Postmenopausal. Osteoporosis screening. Comparison: None. Technique: DEXA bone mineral density evaluation was performed in the AP projection over the lumbar spine and over both hips in the AP projection utilizing standard imaging techniques. Assessment: The BMD measured at the AP spine L1-L4 is 1.132 g/cm2 with a T-score of 0.8 and a Z-score of 2.8. Bone density is up to 10% below young normal. This patient is considered normal according to the World Health Organization (WHO) criteria. Fracture risk is low. The BMD measured at the femoral neck left is 0.883 g/cm2 with a T-score of 0.3 and a Z-score of 2.0. Bone density is up to 10% below young normal. This patient is considered normal according to the World Health Organization (WHO) criteria. Fracture risk is low. The BMD measured at the femoral neck right is 0.899 g/cm2 with a T-score of 0.5 and a Z-score of 2.2. Bone density is up to 10% below young normal. This patient is considered normal according to the World Health Organization (WHO) criteria. Fracture risk is low. FRAX 10-year fracture risk: Major Osteoporotic Fracture: 6.5%. Hip Fracture: 0.2%. Recommendations: All patients should ensure an adequate intake of dietary calcium and vitamin D. The NOF recommend adults under the age of 50 need 1000 mg of calcium and 400-800 IU of vitamin D daily. Effective therapy for the prevention and treatment of osteoporosis include biphosphonates. Follow-up: People with diagnosed cases of osteoporosis or at high risk for fracture should have regular bone mineral density test. For patients eligible for Medicare, routine testing is allowed once every 2 years. Testing frequency can be increased to one year for patients who have rapidly progressing disease, those who are receiving or discontinuing medical therapy to restore bone mass, or have additional risk factors. Based on these results, a followup exam is recommended in two years. Procedure Note Anibal Blue MD - 11/19/2022 Examination: DEXA Bone densitometry Clinical history: Postmenopausal. Osteoporosis screening. Comparison: None. Technique: DEXA bone mineral density evaluation was performed in the APprojection over the lumbar spine and over both hips in the AP projectionutilizing standard imaging techniques. Assessment: The BMD measured at the AP spine L1-L4 is 1.132 g/cm2 with a T-score of0.8 and a Z-score of 2.8. Bone density is up to 10% below young normal.This patient is considered normal according to the World HealthOrganization (WHO) criteria. Fracture risk is low. The BMD measured at the femoral neck left is 0.883 g/cm2 with a T-score of0.3 and a Z-score of 2.0. Bone density is up to 10% below young normal.This patient is considered normal according to the World HealthOrganization (WHO) criteria. Fracture risk is low. The BMD measured at the femoral neck right is 0.899 g/cm2 with a T-scoreof 0.5 and a Z-score of 2.2. Bone density is up to 10% below youngnormal. This patient is considered normal according to the World HealthOrganization (WHO) criteria. Fracture risk is low. FRAX 10-year fracture risk: Major Osteoporotic Fracture: 6.5%. Hip Fracture: 0.2%. Recommendations: All patients should ensure an adequate intake of dietary calcium andvitamin D. The NOF recommend adults under the age of 50 need 1000 mg ofcalcium and 400-800 IU of vitamin D daily. Effective therapy for theprevention and treatment of osteoporosis include biphosphonates. Follow-up: People with diagnosed cases of osteoporosis or at high risk for fractureshould have regular bone mineral density test. For patients eligible forMedicare, routine testing is allowed once every 2 years. Testing frequencycan be increased to one year for patients who have rapidly progressingdisease, those who are receiving or discontinuing medical therapy torestore bone mass, or have additional risk factors. Based on these results, a followup exam is recommended in two years. Impression: Within normal limits in the lumbar spine and both hips. Ordered By: TEDDY SALEH Interpreted By: Anibal Blue MD, 11/19/2022 2:58 PM Teddy Saleh MD DEXA Final Resul t from Last 3 Months or Most Recently Relevant to Health Maintenance Insurance [employer] OPEN ACCESS [facility] MEDICARE AET[employer] Care Teams Ping Pong Table Assembler Relationship Specialty Start Date End Date Teddy Saleh MD [address] [place] [id number] PCP - General FAMILY PRACTICE 10/27/19
--- OUTSIDE RECORDS SUMMARY | 2024-07-24 07:29 | XMS_ITS | Data Portability ---
Author Organization [place] [facility],, Lyndsay fang Address [address] [place] [address] Assessment No assessment recorded. Plan of Treatment Reminders Order Date Submit Date Provider Last Modified By Organization Details Last Modified Time Details Appointments ALLERG Y INJECT ION 2024 09:30A M Nurse Schedule Not available Not available Not available Lab None record ed. Referral None record ed. Procedures allerg y inject ion (PROC) 2024 025 [email or web address] [facility], [address], [facility], [place], [address], 07/20/2024 12:04:21 allerg y inject ion (PROC) 2024 [facility], [address], [place], [address], 06/25/2024 11:34:26 allerg y inject ion (PROC) [email or web address], [address], [address], [place], [address], 05/29/2024 12:08:57 allerg y inject ion (PROC) 2023 024 [email or web address] [facility], [address], [address], [place], [address], 05/01/2024 12:52:51 allerg y inject ion (PROC) 2023 024 [email or web address] [facility], [address], [address], [place], [address], 04/06/2024 12:47:41 Surgeries None record ed. Imaging None record ed. Medication Orders None record ed. Patient TargetsNo targets recorded. Patient InstructionsNo instructions recorded. Reason for Referral None Reported. Results Created Date Observation Date Name Description Value Unit Range Abnormal Flag Note LastModifiedBy Organization Detail LastModifiedTime Result Notes None recorded. Problems Name Problem SNOMED Code Status Onset Date Resolution Date Notes Provider Name and Address Organization Details Recorded Time Hyperlipidemia 79564713 Active [address], [place], [address], [place] [facility], 3 15:43:04 Osteoporosis 85268565 Active [address], [place], [address], [place] [facility], 3 15:43:37 Mild intermittent asthma 172393645 Active [address], [place], [address], [place] [facility], 4 15:34:56 Perennial allergic rhinitis with seasonal variation 760791749 Active [address], [place], [address], [place] [facility], 4 15:34:57 Allergy to mold 535357337 Active [address], [place], [address], [place] [facility], 4 12:38:01 Allergic rhinitis caused by pollen 74998101 Active [address], [place], [address], [place] [facility], 3 15:23:47 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 Medical Equipment None Reported. Allergies Allergen ID Allergen Name Allergen Category Reaction Reaction Severity Criticality Documentation Date Start Date Code Code System Note Provider Name and Address Organization Details Recorded Time 06519 codeine medicatio n itching other Not available Not available Not available 02/28/2017 2670 RxNorm Insom neelima Rashmi Duran null, [place] [facility], 7 15:30:52 03918 Benadryl medicatio n other Not available Not available 02/28/201778128 7 RxNorm Insom neelima Rashmi Roger null, [place] [facility], 7 15:31:09 38985 Zithromax medicatio n other Not available Not available 02/28/201719637 4 RxNorm Insom neelima Rashmi Roger null, [place] [facility], 7 15:31:27 80046 bacitraci n / neomycin / polymyxin B medicatio n hives Not available Not available 02/28/2017 98555 9 RxNorm Rashmi Roger null, [place] [facility], 7 15:32:05 10628 adhesive environme nt,medica tion hives Not available Not available 02/28/2017 34352 UNK Rashmi Antong null, [place] [facility], 7 15:32:42 57885 levofloxa jeanne medicatio n arthralgi a (joint pain) Not available high 07/04/2023 90179 RxNorm MD [address], [place], [address] [place] [address] - [facility], 4 17:13:54 Medications Name Sig Start Date Stop Date Status Note LastModified by Organization Details LastModified Time atorvastati n 40 mg tablet 10/17 completed Not Available Not Available Not Available venlafaxine ER 37.5 mg capsule,ext ended release 24 hr 10/17 completed Not Available Not Available Not Available prednisone 10 mg tablet TAKE 4 TABLETS BY MOUTH EVERY DAY FOR 10 DAYS 10/17 completed Not Available Not Available Not Available doxycycline hyclate 100 mg capsule 02/26 completed Not Available Not Available Not Available atorvastati n 20 mg tablet 04/15 completed Not Available Not Available Not Available albuterol sulfate 2.5 mg/3 mL (0.083 %) solution for nebulizatio n active Not Available Not Available Not Available azithromyci n 250 mg tablet 02/28 completed Not Available Not Available Not Available pravastatin 40 mg tablet TK 1 T PO D 10/17 completed Not Available Not Available Not Available ibuprofen 800 mg tablet TAKE 1 TABLET BY MOUTH EVERY 8 HOURS NEEDED FOR PAIN 10/17 completed Not Available Not Available Not Available benzonatate 200 mg capsule TAKE 1 CAPSULE BY MOUTH THREE TIMES DAILY NEEDED FOR COUGH. 02/26 completed Not Available Not Available Not Available cephalexin 250 mg capsule 03/20 completed Not Available Not Available Not Available hydrocodone 5 mg-acetamin ophen 325 mg tablet TAKE 1 TO 2 TABLETS BY MOUTH EVERY 6 HOURS NEEDED FOR PAIN active Not Available Not Available No t Available meloxicam 15 mg tablet 02/26 completed Not Available Not Available Not Available prednisone 20 mg tablet TAKE 2 TABLETS BY MOUTH EVERY DAY FOR 5 DAYS 02/26 completed Not Available Not Available Not Available pimecrolimu s 1 % topical cream 10/17 completed Not Available Not Available Not Available penicillin V potassium 500 mg tablet TAKE 1 TABLET BY MOUTH FOUR TIMES DAILY 02/26 completed Not Available Not Available Not Available meclizine 12.5 mg tablet 10/17 completed Not Available Not Available Not Available ciprofloxac in 250 mg tablet 02/28 completed Not Available Not Available Not Available sulfamethox azole 800 mg-trimetho prim 160 mg tablet 10/17 completed Not Available Not Available Not Available triamcinolo ne acetonide 0.1 % topical cream 10/17 completed Not Available Not Available Not Available amoxicillin 500 mg tablet TAKE 1 TABLET BY MOUTH THREE TIMES DAILY 02/26 completed Not Available Not Available Not Available terbinafine HCl 250 mg tablet TAKE 1 TABLET BY MOUTH EVERY DAY 10/17 completed Not Available Not Available Not Available ofloxacin 0.3 % ear drops INSTILL 5 DROPS INTO THE RIGHT EAR TWICE DAILY FOR 10 DAYS 10/17 completed Not Available Not Available Not Available amoxicillin 875 mg tablet TAKE 1 TABLET BY MOUTH TWICE DAILY UNTIL ALL TAKEN 10/17 completed Not Available Not Available Not Available prednisolon e acetate 1 % eye drops,suspe nsion 04/15 completed Not Available Not Available Not Available oseltamivir 75 mg capsule 02/26 completed Not Available Not Available Not Available gabapentin 300 mg capsule TAKE 1 CAPSULE BY MOUTH THREE TIMES DAILY active Not Available Not Available No t Available budesonide 0.5 mg/2 mL suspension for nebulizatio n PLACE CONTENTS OF 1 VIAL AND 250 ML OF SALINE IN RINSE BOTTLE. IRRIGATE SINUS WITH 1/2 BOTTLE IN EACH NOSTRIL TWICE DAILY active Not Available Not Available No t Available raloxifene 60 mg tablet TAKE 1 TABLET BY MOUTH EVERY DAY active Not Available Not Available No t Available montelukast 10 mg tablet TAKE 1 TABLET BY MOUTH DAILY active Not Available Not Available No t Available mupirocin 2 % topical ointment APPLY A SMALL AMOUNT TO NOSTRILS TWICE DAILY FOR 5 DAYS; REPEAT MONTHLY FOR 3 MONTHS active Not Available Not Available No t Available hydrocortis one butyrate 0.1 % topical cream 04/15 completed Not Available Not Available Not Available clobetasol 0.05 % topical ointment APPLY A THIN LAYER TO THE AFFECTED AREA(S) BY TOPICAL ROUTE 2 TIMES PER DAY 10/17 completed Not Available Not Available Not Available azelastine 137 mcg (0.1 %) nasal spray USE 1 TO 2 SPRAYS IN EACH NOSTRIL TWICE DAILY DIRECTED active Not Available Not Available No t Available levofloxaci n 500 mg tablet 02/28 completed Not Available Not Available Not Available estradiol 0.01% (0.1 mg/gram) vaginal cream INSERT 1 GRAM VAGINALLY DIRECTED active Not Available Not Available No t Available levofloxaci n 750 mg tablet 02/26 completed Not Available Not Available Not Available methylpredn isolone 4 mg tablets in a dose pack FOLLOW PACKAGE DIRECTION S active Not Available Not Available No t Available albuterol sulfate HFA 90 mcg/actuati on aerosol inhaler INHALE 2 INHALATIO NS BY MOUTH FOUR TIMES DAILY NEEDED active Not Available Not Available No t Available ketoconazol e 2 % topical cream 10/17 completed Not Available Not Available Not Available amoxicillin 875 mg-potassiu m clavulanate 125 mg tablet TAKE 1 TABLET BY MOUTH EVERY 12 HOURS FOR 7 DAYS active Not Available Not Available No t Available cyclobenzap rine 5 mg tablet active Not Available Not Available Not Available rosuvastati n 20 mg tablet TAKE 1 TABLET BY MOUTH DAILY active Not Available Not Available No t Available nitrofurant oin monohydrate /macrocryst als 100 mg capsule 03/20 completed Not Available Not Available Not Available GaviLyte-G 236 gram-22.74 gram-6.74 gram-5.86 gram oral solution 10/21 completed Not Available Not Available Not Available Eliquis 5 mg tablet TAKE 1 TABLET BY MOUTH TWICE DAILY active Not Available Not Available No t Available Virtussin AC 10 mg-100 mg/5 mL oral liquid 02/28 completed Not Available Not Available Not Available Jublia 10 % topical solution with applicator 10/17 completed Not Available Not Available Not Available Kerydin 5 % topical solution with applicator 10/17 completed Not Available Not Available Not Available Flonase Allergy Relief 50 mcg/actuati on nasal spray,suspe nsion Coleraine 2 sprays every day by intranasa l route. 10/21 completed Not Available Not Available Not Available Breztri Aerosphere 160 mcg-9mcg-4. 8mcg/actuat ion HFA aerosol inhaler Inhale 2 puffs twice a day by inhalatio n route for 14 days. 2023 active Not Available Not Available Not Avai lable Airsupra 90 mcg-80 mcg/actuati on HFA aerosol inhaler INHALE 2 PUFFS BY MOUTH EVERY 4 HOURS NEEDED FOR CHEST TIGHTNESS OR COUGHING OR WHEEZING. DO NOT EXCEED 12 PUFFS IN 24 HOURS active Not Available Not Available No t Available Vitals None Recorded Social History Question Answer Notes LastModified by Organizat ion Details LastModified Time Tobacco Smoking Status Never Smoker Rashmi Roger meyer, [place] [facility], 02/28/2017 15:34:29 Do You Have An Advance Directive? Yes [email or web address] Information not available 06/05/2023 What Is Your Level Of Alcohol Consumption? Occasional [email or web address] Information not available 10/17/2022 What Was The Date Of Your Most Recent Tobacco Screening? 02/27/2024 [email or web address] Information not available 02/27/2024 Do You Use Any Illicit Or Recreational Drugs? No [email or web address] Information not available 10/17/2022 Do You Or Have You Ever Used Any Other Forms Of Tobacco Or Nicotine? No [email or web address] Information not available 10/17/2022 Sex: Unknown Functional Status None recorded. Mental Status None recorded. Family History Relationship Description Onset Age of this Age Resolved Age Notes LastModified by Organization Details LastModified Time Mother Hypertensive disorder Alive [email or web address] Not available 2016 15:34:12 Father Myocardial infarction 72 [email or web address] Not available 02/28 15:34:25 Medical History Condition Response Diabetes N Anxiety Disorder N Coronary Artery Disease N Gout N Arthritis N Kidney Stones N Hyperthyroidism N Tuberculosis N Cancer N Stroke N Diverticulitis N Stress N Hypothyroidism N COPD N Depression N Allergies Y Asthma Y High Cholesterol Y GERD/Reflux N Liver Disease N Heart Disease N Pulmonary Embolism N Fibromyalgia N Hypertension N Osteoporosis Y Kidney Disease N Gynecological HistoryNo gynecological history recorded. Obstetrics History GPAL:G 0 P 0 0 0 0 Immunizations Vaccine Type Date Status Note Provider Nam e and Address Organization Details Recorded Time COVID-19, mRNA, LNP-S, PF, 100 mcg/0.5mL dose or 50 mcg/0.25mL dose 1 completed MD [address] ,[address], [place], [address], [place] [facility], 10/21/2020 13:06:02 COVID-19, mRNA, LNP-S, PF, 100 mcg/0.5mL dose or 50 mcg/0.25mL dose 1 completed MD Bertha [address], [place], [address], [place] [facility], 10/21/2020 13:06:25 Influenza, split virus, quadrivalent, PF 8 completed Not Available [facility] 05/30/2019 02:14:14 Pneumococcal conjugate PCV 13 8 completed Not Available [facility] 05/30/2019 02:14:10 MMR 9 completed Not Available [facility] 05/30/2019 02:14:10 Tdap 9 completed Not Available [facility] 05/30/2019 02:14:10 Influenza, split virus, quadrivalent, PF 9 completed Not Available [facility] 05/30/2019 02:14:11 zoster recombinant 0 completed Ila meyer, [place] [facility], 11/06/2019 11:06:37 zoster recombinant 0 completed Rashmi meyer, [place] [facility], 01/01/2020 12:03:10 Influenza, adjuvanted, trivalent, PF 0 completed Ila meyer[place] [facility], 01/29/2020 12:08:44 pneumococcal polysaccharide PPV23 0 completed Rashmi meyer, [place] [facility], 02/26/2020 12:57:52 Influenza, adjuvanted, quadrivalent, PF 1 completed Rashmi [place]yer[place] [facility], 01/27/2021 12:36:47 Influenza, adjuvanted, quadrivalent, PF 2 completed Rashmi [place]yer[place] [facility], 03/06/2022 12:00:08 Influenza, adjuvanted, quadrivalent, PF 3 completed loreta meyer[place] [facility], 03/04/2023 15:38:33 Influenza, adjuvanted, trivalent, PF 4 completed Rashmi [place]yer, [place] [facility], 03/09/2024 14:17:18 Past Encounters Encounter ID Performer Location Encounter Start Date Encounter Closed Date Diagnosis/Indication Diagnosis SNOMED-CT Code Diagnosis ICD10 Code Diagnosis Note [id number] Shaji yanes MD OFFICE [address] [place] [address] 8 02/28/2017 14:49:11 02/28/2017 17:01:46 Allergic rhinitis caused by pollen 36822266 J30.1 The patient's symptoms are compatible with allergic rhinitis. Skin testing confirmed the allergic nature of this condition. The three fundamenta l therapeuti c strategies were discussed with the patient. These include allergen avoidance, pharmacolo gic interventi on with intranasal corticoste roids, antihistam heather, and potentiall y intranasal antihistam heather. Finally allergy immunother apy was discussed. The patient was started on {{allergy immunother apy and will continue with her present meds.# Richard nase Vale ex Rhinoco rt Nasacort}} . [id number] [address] OFFICE [address] [place] [address] 8 02/18/2018 15:07:07 02/18/2018 16:49:12 Administration of influenza vaccine 88270533 Z23 Patient received a Fluzone Quad influenza vaccine for this season per verbal consent without complicati on. Potential side effects including injection site redness and soreness was reviewed with patient. Allergic r hinitis caused by pollen 96779862 J30.1 {{2 INJ# Flona se Nasonex Rhinocort Nasacort}} . Patient received allergy immunother apy per patient's AIT regimen. No complicati ons noted. Patient to return per AIT treatment regimen schedule. [id number] Shaji yanes MD OFFICE [address] [place] [id number] 04/15/2018 12:48:24 04/15/2018 13:24:17 Mild intermittent asthma 902286985 J45.20 stable Allergic r hinitis caused by pollen 09733536 J30.1 The patient is doing extremely well on the current regimen of medication s and immunother apy. I will continue This strategy in the future 2 INJ [id number] EDSON Whitney OFFICE [address] [place] [address] 8 05/08/2018 12:07:29 05/08/2018 14:32:36 Allergic rhinitis caused by pollen 48572525 J30.1 Patient received allergy immunother apy per patient's AIT regimen. No complicati ons noted. Patient to return per AIT treatment regimen schedule. Administra tion of pneumococcal vaccine 71564307 Z23 Patient received a Prevnar 13 vaccine for this season per verbal consent without complicati on. Potential side effects including injection site redness and soreness was reviewed with patient. [id number] Shaji yanes MD OFFICE [address] [place] [address] 8 10/28/2018 13:19:25 10/28/2018 14:20:16 Administration of measles and mumps and rubella vaccine 53861511 Z23 Allergic r hinitis caused by pollen 06903159 J30.1 [id number] Shaji yanes MD OFFICE [address] [place] [address] 8 11/25/2018 13:07:01 11/25/2018 15:06:01 Allergic rhinitis caused by pollen 57537290 J30.1 Administra tion of viral vaccine 88000118 Z23 [id number] EDSON Whitney OFFICE [address] [place] [address] 8 02/16/2019 12:30:56 02/16/2019 14:42:25 Allergic rhinitis caused by pollen 42799145 J30.1 Patient received allergy immunother apy per patient's AIT regimen. No complicati ons noted. Patient to return per AIT treatment regimen schedule. Administra tion of influenza vaccine 60291964 Z23 Patient received a Fluzone Quad influenza vaccine for this season per verbal consent without complicati on. Potential side effects including injection site redness and soreness was reviewed with patient prior to administra tion. [id number] Shaji yanes MD OFFICE [address] [place] [id number] 08/15/2019 09:36:00 08/15/2019 10:29:04 Allergy to mold 832672753 Z91.048 2 INJ [id number] Shaji yanes MD OFFICE [address] [place] [id number] 08/17/2019 16:01:53 08/17/2019 16:42:06 Contact dermatitis 23650371 L25.9 History is consistent with a contact dermatitis . Will try some clobetasol . [id number] Shaji yanes MD OFFICE [address] [place] [id number] 09/11/2019 15:31:39 09/11/2019 15:59:14 Allergic rhinitis caused by pollen 79745990 J30.1 Patient received allergy immunother apy per patient's AIT regimen. No complicati ons noted. Patient to return per AIT treatment regimen schedule. [id number] Shaji yanes MD OFFICE [address] [place] [id number] 10/09/2019 14:45:15 10/09/2019 15:53:51 Allergy to mold 784870139 Z91.048 2 INJ [id number] Shaji yanes MD OFFICE [address] [place] [id number] 11/06/2019 10:59:30 11/06/2019 11:38:09 Administration of viral vaccine 62866686 Z23 Allergic r hinitis caused by pollen 28423966 J30.1 Patient received allergy immunother apy per patient's AIT regimen. No complicati ons noted. Patient to return per AIT treatment regimen schedule. [id number] Shaji yanes MD OFFICE [address] [place] [id number] 12/01/2019 10:43:10 12/01/2019 11:41:25 Allergic rhinitis caused by pollen 04842361 J30.1 Patient received allergy immunother apy per patient's AIT regimen. No complicati ons noted. Patient to return per AIT treatment regimen schedule. [id number] Shaji yanes MD OFFICE [address] [place] [id number] 8 01/01/2020 10:51:17 01/01/2020 12:01:54 Allergic rhinitis caused by pollen 02446262 J30.1 Patient received allergy immunother apy per patient's AIT regimen. No complicati ons noted. Patient to return per AIT treatment regimen schedule. Administra tion of viral vaccine 82741682 Z23 [id number] EDSON Whitney OFFICE [address] [place], [place] [id number] 8 01/29/2020 12:01:35 01/29/2020 15:12:23 Allergic rhinitis caused by pollen 71506372 J30.1 Patient received allergy immunother apy per patient's AIT regimen. No complicati ons noted. Patient to return per AIT treatment regimen schedule. Administra tion of influenza vaccine 91753608 Z23 Patient received a Fluad high-dose influenza vaccine for this season per verbal consent without complicati on. Potential side effects including injection site redness and soreness was reviewed with patient prior to administra tion. [id number] Shaji yanes MD OFFICE [address] [place] [address] 8 02/26/2020 12:18:04 02/26/2020 13:07:26 Allergy to mold 003710983 Z91.048 2 INJ Administra tion of pneumococcal vaccine 09974209 Z23 Patient received a Pneumovax- 23 vaccine for this season per verbal consent without complicati on. Potential side effects including injection site redness and soreness was reviewed with patient. [id number] Shaji yanes MD OFFICE [address] [place] [id number] 03/25/2020 10:41:45 03/25/2020 11:27:26 Allergic rhinitis caused by pollen 49744028 J30.1 Patient received allergy immunother apy per patient's AIT regimen. No complicati ons noted. Patient to return per AIT treatment regimen schedule. [id number] Shaji yanes MD OFFICE [address] [place] [address] 8 04/22/2020 11:25:35 04/22/2020 12:36:56 Allergy to mold 400696865 Z91.048 2 INJ [id number] Shaji yanes MD OFFICE [address] [place] [id number] 8 05/20/2020 10:49:56 05/20/2020 11:52:41 Allergy to mold 225914143 Z91.048 2 INJ [id number] Shaji yanes MD OFFICE [address] [place] [id number] 06/13/2020 14:01:44 06/13/2020 18:15:03 Allergic rhinitis caused by pollen 46458493 J30.1 Patient received allergy immunother apy per patient's AIT regimen. No complicati ons noted. Patient to return per AIT treatment regimen schedule. [id number] Shaji yanes MD OFFICE [address] [place] [address] 8 07/11/2020 11:52:29 07/11/2020 18:30:22 Allergy to mold 141920799 Z91.048 2 INJ [id number] Shaji yanes MD OFFICE [address] [place] [id number] 08/02/2020 16:22:51 08/02/2020 17:23:17 Allergy to mold 717664324 Z91.048 2 INJ [id number] Shaji yanes MD OFFICE [address] [place] [id number] 8 09/02/2020 09:54:34 09/02/2020 17:40:28 Allergy to mold 123112948 Z91.048 FILLED SERUM 2 VIALS 2 INJ NO ANIMAL [id number] Shaji yanes MD OFFICE [address] [place] [id number] 8 09/23/2020 11:00:43 09/23/2020 14:04:57 Allergy to mold 417354055 Z91.048 2 INJ [id number] Shaji yanes MD OFFICE [address] [place] [id number] 8 10/21/2020 12:37:12 10/21/2020 14:11:39 Asthma 033315414 J45.909 The patient's asthma is doing extremely well. They're having no nocturnal awakenings and they're short acting beta agonist use during the day is limited. I will continue the patient on thier present medication s. Allergy to mold 65604141 3 Z91.048 2 INJ The patient is doing extremely well on the current regimen of medication s and immunother apy. I will continue this strategy in the future. [id number] Shaji yanes MD OFFICE [address] [place] [address] 8 11/11/2020 10:42:17 11/11/2020 14:29:30 Allergy to mold 822808433 Z91.048 2 INJ [id number] Shaji yanes MD OFFICE [address] [place] [address] 8 12/08/2020 10:29:05 12/08/2020 11:15:20 Allergy to mold 289853212 Z91.048 2 INJ [id number] Shaji yanes MD OFFICE [address] [place] [address] 8 01/06/2021 10:39:40 01/06/2021 13:05:20 Allergy to mold 809677922 Z91.048 FILLED SERUM 2 VIALS 2 INJ NO ANIMAL [id number] Yamilet Aaron MD OFFICE [address] [place] [address] 8 01/27/2021 12:10:52 01/27/2021 13:15:54 Allergy to mold 136674245 Z91.048 2 INJ Administra tion of influenza vaccine 26774526 Z23 Patient received a Fluad high-dose influenza vaccine for this season per verbal consent without complicati on. Potential side effects including injection site redness and soreness was reviewed with patient prior to administra tion. [id number] Shaji yanes MD OFFICE [address] [place] [address] 8 02/20/2021 12:26:36 02/20/2021 13:35:13 Allergy to mold 635112696 Z91.048 2 INJ [id number] EDSON Whitney OFFICE [address] [place], [place] [id number] 8 03/20/2021 13:03:05 03/20/2021 14:09:53 Acute sinusitis 95987849 J01.90 The patient's symptoms are consistent with a sinus infection. She will be treated with a 10-day course of Augmentin 875/125 mg tablets. If she fails to respond the course will be increased by another 10 days. If she has persistent symptoms further evaluation will be required. Allergic r hinitis caused by pollen 81167788 J30.1 Patient received allergy immunother apy per patient's AIT regimen. No complicati ons noted. Patient to return per AIT treatment regimen schedule. 2 INJ [id number] Shaji yanes MD OFFICE [address] [place] [address] 8 04/13/2021 11:06:46 04/13/2021 15:27:31 Allergy to mold 080726994 Z91.048 2 INJ [id number] Shaji yanes MD OFFICE [address] [place] [address] 8 05/08/2021 09:46:30 05/08/2021 10:35:02 Allergy to mold 118853932 Z91.048 FILLED SERUM 2 VIALS 2 INJ NO ANIMAL [id number] EDSON Whitney OFFICE [address] [place] [address] 8 06/05/2021 10:44:54 06/05/2021 12:12:24 Allergy to mold 175015375 Z91.048 2 INJ Allergic r hinitis caused by pollen 14304880 J30.1 Patient received allergy immunother apy per patient's AIT regimen. No complicati ons noted. Patient to return per AIT treatment regimen schedule. [id number] Shaji yanes MD OFFICE [address] [place] [address] 8 07/03/2021 11:09:49 07/03/2021 12:07:39 Allergy to mold 244231965 Z91.048 2 INJ [id number] Shaji yanes MD OFFICE [address] [place] [address] 8 07/31/2021 11:20:52 07/31/2021 11:59:09 Allergy to mold 529201221 Z91.048 2 INJ [id number] Shaji yanes MD OFFICE [address] [place] [address] 8 08/28/2021 10:36:59 08/28/2021 12:56:29 Allergic rhinitis caused by pollen 71035153 J30.1 [id number] Shaji yanes MD OFFICE [address] [place] [address] 8 09/21/2021 10:43:30 09/21/2021 11:40:27 Allergy to mold 162479518 Z91.048 FILLED SERUM 2 VIALS 2 INJ NO ANIMAL [id number] Shaji yanes MD OFFICE [address] [place] [address] 8 10/19/2021 11:19:20 10/19/2021 11:49:32 Allergy to mold 576553579 Z91.048 2 INJ [id number] Lyndsay Fang NP-C OFFICE [address] [place] [address] 8 11/14/2021 14:52:57 11/14/2021 15:49:08 Insect bite reaction 940355169 T63.481A Patient instructed to take another Zyrtec, since she already takes one daily to help better control her PMH of allergic rhinitis and was prescribed oral corticoste roids with directions to take four 10 mg tablets for two - three days. She will call should this treatment regimen cease to work well. Allergy to mold 83183452 3 Z88.8 Patient received allergy immunother apy (2 injections ) per patient's AIT regimen. No complicati ons noted. Patient to return per AIT treatment regimen schedule. [id number] Shaji yanes MD OFFICE [address] [place] [address] 8 12/14/2021 09:45:26 12/14/2021 12:04:13 Allergy to mold 813102931 Z91.048 2 INJ [id number] Shaji yanes MD OFFICE [address] [address] 8 01/08/2022 13:04:27 01/08/2022 14:05:30 Allergy to mold 200621374 Z91.048 2 INJ [id number] Yamilet Aaron MD OFFICE [address] [place] [address] 8 02/06/2022 11:07:58 02/06/2022 13:44:31 Allergy to mold 459899999 Z91.048 FILLED SERUM 2 VIALS 2 INJ NO ANIMAL [id number] Shaji yanes MD OFFICE [address] [place] [address] 8 03/06/2022 11:02:34 03/06/2022 12:45:13 Allergy to mold 317005861 Z91.048 2 INJ Administra tion of influenza vaccine 30451454 Z23 Patient received a Fluad high-dose influenza vaccine for this season per verbal consent without complicati on. Potential side effects including injection site redness and soreness was reviewed with patient prior to administra tion. [id number] Shaji yanes MD OFFICE [address] [place] [address]938 8 04/03/2022 11:10:30 04/03/2022 11:57:43 Allergy to mold 050011768 Z91.048 2 INJ [id number] Yamilet Aaron MD OFFICE [address] [place] [address] 8 04/30/2022 11:25:11 04/30/2022 12:10:02 Allergy to mold 857574426 Z91.048 2 INJ [id number] Shaji yanes MD OFFICE [address] [place] [address] 8 05/28/2022 11:05:18 05/28/2022 11:34:31 Allergy to mold 732034762 Z91.048 2 INJ [id number] Shaji yanes MD OFFICE [address] [place] [address] 8 06/25/2022 11:04:02 06/25/2022 12:09:05 Allergy to mold 172261909 Z91.048 FILLED SERUM 2 VIALS 2 INJ NO ANIMAL [id number] Yamilet Aaron MD OFFICE [address] [place] [address] 8 07/25/2022 10:26:08 07/25/2022 10:43:18 Allergy to mold 744974080 Z91.048 2 INJ [id number] Shaji yanes MD OFFICE [address] [place] [address] 8 08/21/2022 10:44:48 08/21/2022 11:29:38 Allergy to mold 630509741 Z91.048 2 INJ [id number] Yamilet Aaron MD OFFICE [address] [place] [address] 8 09/18/2022 10:26:08 09/18/2022 10:39:10 Allergy to mold 429164580 Z91.048 2 INJ [id number] EDSON Whitney OFFICE [address] [place] [address] 8 10/17/2022 14:51:54 10/17/2022 15:58:20 Acute sinusitis 86402370 J01.90 The patient's symptoms are consistent with a sinus infection. She will be treated with a 10-day course of Augmentin 875/125 mg tablets. If she fails to respond the course will be increased by another 10 days. If she has persistent symptoms further evaluation will be required. Mild persi stent asthma 465760866 J45.31 The patient is having a flare in their asthma. This is characteri zed by increased beta agonist use, cough, and wheezing. This probably been triggered by a viral infection. Therapy will consist of a burst of oral corticoste roids as well as increasing doses of short acting beta agonist. An antibiotic will be added because of purulent sputum production . Acute pharyngitis 783900 003 J02.9 Patient's reported symptoms are consistent with an acute pharyngiti s. A rapid strep test was obtained during her visit. Results were negative. Allergy to mold 96802099 3 Z88.8 Patient received allergy immunother apy (2 injections ) per patient's AIT regimen. No complicati ons noted. Patient to return per AIT treatment regimen schedule. Elevated blood-pressure reading without diagnosis of hypertension 475715611 R03.0 Patient's blood pressure was slightly elevated at today's visit. She was made aware of this reading. She will continue to monitor and let her PCP know if her BP remains elevated. [id number] Shaji yanes MD OFFICE [address] [place] [address] 8 11/15/2022 09:53:08 11/15/2022 10:49:12 Allergy to mold 265834367 Z91.048 FILLED SERUM 2 VIALS 2 INJ NO ANIMAL [id number] EDSON Whitney OFFICE [address] [place] [address] 8 11/22/2022 15:18:51 11/22/2022 16:24:30 COVID-19 524133410 U07.1 Her symptoms are consistent with COVID-19. A rapid test was obtained during the visit. Results were negative. Patient was made aware. Acute sinusitis 62735002 J01.90 The patient's symptoms are consistent with a sinus infection. She will be treated with a 20-day course of Augmentin 875/125 mg tablets. If she fails to respond the course will be increased by another 10 days. If she has persistent symptoms further evaluation will be required. Mild persi stent asthma 032008695 J45.31 The patient is having a flare in their asthma. This is characteri zed by increased beta agonist use, cough, and wheezing. This probably been triggered by a viral infection. Therapy will consist of a burst of oral corticoste roids as well as increasing doses of short acting beta agonist. An antibiotic will be added because of purulent sputum production . [id number] Shaji yanes MD OFFICE [address] [place] [address] 8 12/11/2022 15:35:38 12/11/2022 15:48:46 Allergy to mold 018805729 Z91.048 2 INJ [id number] Shaji yanes MD OFFICE [address] [place] [address] 8 01/08/2023 10:35:30 01/08/2023 11:35:44 Allergy to mold 142469245 Z91.048 2 INJ [id number] Yamilet Aaron MD OFFICE [address] [place] [address] 8 02/04/2023 10:15:38 02/04/2023 14:03:50 Allergy to mold 033984800 Z88.8 2 INJ [id number] Shaji yanes MD OFFICE [address] [place] [address] 8 03/04/2023 10:31:44 03/04/2023 11:39:20 Allergy to mold 488032061 Z91.048 2 INJ Administra tion of influenza vaccine 32584381 Z23 Patient received a Fluad high-dose influenza vaccine for this season per verbal consent without complicati on. Potential side effects including injection site redness and soreness was reviewed with patient prior to administra tion. [id number] Shaji yanes MD OFFICE [address] [place] [address] 8 04/01/2023 11:20:33 04/01/2023 12:25:25 Allergy to mold 384885764 Z91.048 FILLED SERUM 2 VIALS 2 INJ NO ANIMAL [id number] Yamilet Aaron MD OFFICE [address] [place] [address] 8 05/02/2023 10:05:29 05/02/2023 11:22:15 Allergy to mold 588675638 Z88.8 2 INJ [id number] Lyndsay Fang NP-C OFFICE [address] [place] [address] 8 06/05/2023 11:04:40 06/05/2023 13:08:59 Asthma 548607983 J45.909 She is having a flare in her asthma. This is characteri zed by increased beta agonist use, cough, and wheezing. This has probably been triggered by a viral infection. Therapy will consist of a burst of oral corticoste roids as well as increasing doses of short acting beta agonist. An antibiotic will be added because of purulent sputum production . She was also dispensed two samples of Breztri 160/9/4.8 mcg HFA MDIs with facundo lyons on use; 2 inhalation s twice daily. Influenza- like illness 50529334 B34.9 Her symptoms are consistent with influenza. A rapid flu swab was obtained during the visit. Results were negative. Patient was made aware. COVID-19 868371452 U07.1 Her symptoms are consistent with COVID-19. A rapid test was obtained during the visit. Results were negative. Patient was made aware. Allergy to mold 86486796 3 Z88.8 Patient received allergy immunother apy (2 injections ) per patient's AIT regimen. No complicati ons noted. Patient to return per AIT treatment regimen schedule. Pneumonia 814151833 J18. 9 Unclear if her symptoms are consistent with pneumonia. A chest x-ray was ordered. Once results are received they will be reviewed with patient. Acute bronchitis 5156503 2 J20.9 The patient's symptoms are most compatible with an acute bronchitis with cough productive of purulent secretions , fever and chills. The patient was begun on Augmentin 875/125 mg. A chest x-ray was ordered to rule out pneumonia. Once results are received they will be reviewed with patient. 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 [id number] Shaji yanes MD OFFICE [address] [place] [address]414 8 07/04/2023 16:50:54 07/04/2023 17:28:48 Allergic rhinitis caused by pollen 83702336 J30.1 she will continue oon her allergy immunother apy. Asthma 942802541 J45.90 9 The patient's asthma is doing extremely well. They're having no nocturnal awakenings and they're short acting beta agonist use during the day is limited. I will continue the patient on their present medication s. [id number] Yamilet Aaron MD OFFICE [address] [place] [phone] 8 07/29/2023 10:46:12 07/29/2023 13:39:31 Allergy to mold 516625420 Z88.8 2 INJ [id number] Yamilet Aaron MD OFFICE [address] [place] [address]11[address]783 8 08/26/2023 09:58:14 08/26/2023 11:51:20 Allergy to mold 834914819 Z88.8 FILLED SERUM 2 VIALS 2 INJ NO ANIMAL [id number] Yamilet Aaron MD OFFICE [address] [place], [place] [phone] 8 09/25/2023 10:31:28 09/25/2023 11:15:15 Allergy to mold 068056454 Z88.8 2 INJ [id number] Yamilet Aaron MD OFFICE [address] [place], [place] [phone] 8 10/23/2023 09:55:08 10/23/2023 12:03:36 Allergy to mold 755830377 Z88.8 2 INJ [id number] Yamilet Aaron MD OFFICE [address] [place] [address] 8 11/20/2023 09:54:32 11/20/2023 10:55:57 Allergy to mold 143593761 Z88.8 2 INJ [id number] Yamilet Aaron MD OFFICE [address] [place], [place] [phone] 8 12/16/2023 10:24:57 12/16/2023 11:46:36 Allergy to mold 263874834 Z88.8 2 INJ [id number] Shaji yanes MD OFFICE [address] [place] [address] 8 01/09/2024 09:38:20 01/09/2024 11:23:36 Allergy to mold 693712684 Z91.048 FILLED SERUM 2 VIALS 2 INJ NO ANIMAL [id number] Yamilet Aaron MD OFFICE [address] [place] [address] 8 02/06/2024 11:25:27 02/06/2024 11:50:55 Allergy to mold 100307201 Z88.8 2 INJ [id number] Yamilet Aaron MD OFFICE [address] [place], [place] [id number] 8 02/27/2024 15:09:54 02/27/2024 15:29:02 Acute sinusitis 42607876 J01.90 Treat with Augmentin for 1 week. Bleeding from nose 71635 6005 R04.0 Likely due to staph overgrowth . Treat with mupirocin ointment twice a day for 5 days. Repeat monthly. She will check her salt packets to be sure they are labeled isotonic not hypertonic . Reduce frequency of sinus rinsing to avoid irritant/d rying effect Perennial allergic rhinitis with seasonal variation 814946053 J30.89 Continue allergy immunother apy, azelastine 2 sprays each nostril daily and montelukas t Mild inter mittent asthma 500827566 J45.20 She is a good candidate for reliever/c ontroller combinatio n therapy. Sample of Air Supra given. I recommend flu vaccine once she is done with the antibiotic [id number] Yamilet Aaron MD OFFICE [address] [place] [address] 8 03/09/2024 11:52:56 03/09/2024 12:03:27 Allergy to mold 703067741 Z88.8 2 INJ Administra tion of influenza vaccine 99002038 Z23 [id number] Yamilet Aaron MD OFFICE [address] [place] [address] 8 04/06/2024 11:38:52 04/06/2024 12:31:46 Allergy to mold 038952104 Z88.8 2 INJ [id number] EDSON Whitney OFFICE [address] [place] [address] 8 05/01/2024 11:18:18 05/01/2024 12:39:23 Allergy to mold 113043389 Z88.8 Patient received allergy immunother apy (2 INJECTIONS ) per patient's AIT regimen. No complicati ons noted. Patient to return per AIT treatment regimen schedule.2 inj [id number] Shaji yanes MD OFFICE [address] [place] [address] 8 05/29/2024 11:11:01 05/29/2024 11:29:58 Allergy to mold 635404733 Z91.048 FILLED SERUM 2 VIALS 2 INJ NO ANIMAL [id number] Shaji yanes MD OFFICE [address] [facility] [place] [address] 06/25/2024 10:29:03 06/25/2024 11:05:57 Allergy to mold 470857107 Z91.048 2 INJ [id number] Yamilet aAron MD OFFICE [address] [facility] [place] [address] 07/20/2024 11:24:50 07/20/2024 12:40:32 Allergy to mold 986137120 Z88.8 2 INJ Health Concerns Section Related Observation LastModified by Organization Detai ls LastModified Time None Recorded Concern Status LastModified by Organization Details LastModified Time None Recorded Advance Directives Directive Y: Payers Encounter Date Sequence Insurance Name Policy Number Policy Sylvester Covered Member ID Sylvester Member ID Guarantor Name 04/06/2024 1 [employer] (MEDICARE REPLACEMENT PPO) [id number] 1 Phyllis L Mchugh [id number] Phyllis Mchugh 05/01/2024 1 [employer] (MEDICARE REPLACEMENT PPO) [id number] Phyllis L Mchugh [id number] Phyllis Mchugh 05/29/2024 1 [employer] (MEDICARE REPLACEMENT PPO) [id number] 1 Phyllis L Mchugh [id number] Phyllis Mchugh 06/25/2024 1 [employer] (MEDICARE REPLACEMENT PPO) [id number] 1 Phyllis L Mchugh [id number] Phyllis Mchugh 07/20/2024 1 [employer] (MEDICARE REPLACEMENT PPO) [id number] 1 Phyllis L Mchugh [id number] Phyllis Mchugh OBGyn Episode No OBEpisode recorded.
--- OUTSIDE RECORDS SUMMARY | 2024-07-24 07:29 | XMS_ITS | Data Portability ---
Author Organization [facility] Address [address], [address] [place] [address] Care Team Providers Care Logistics Operations Director Name Role Phone ALEXANDER MORROW Primary Care Provider Assessment Encounter Date Assessment Date Assessment LastModified by Organization Details LastModified Time 05/14/2023 05/14/2023 Favor thin SK an d less likely lentigo R medial voodoo Discussed diagnosis Reassurance Recommend monitor for changes Superficial injury of skin overlying papule, L posterior hairline Discussed unable to evaluate primary lesion with overlying traumatic erosion no evidence of infection recommend use of Vaseline or Aquaphor qd until healed recommend recheck of area with fbse in August Not available 05/14/2023 11:35:19 01/07/2024 01/07/2024 Subcutaneous nodule L posterior hairline Discussed clinically consistent with benign cyst Recommend monitor for changes and discussed recommendation for further evaluation if increasing size or becomes symptomatic Lentigines - diagnosis reviewed. Recommend avoid sun exposure and use sun protection. Recommend monitor for changes. Seborrheic keratoses - diagnosis reviewed. Pt reassured. Discussed no treatment needed. Photoaging face Recommend strict photoprotection and sunscreen use Discussed options of retinol use on face qhs, gradual increase to qhs Recommend hyaluronic acid/ceramide moisturizer qhs fbse 1 yr Photoprotection discussed. Use of a broad-spectrum sunscreen SPF 30 or higher recommended. Not available 01/07/2024 14:54:08 03/31/2024 03/31/2024 Inflamed and crusted SK-Discussed benign. Discussed treatment options of no rx vs LN pt elects LN x 1 R posterior upper arm Not available 03/31/2024 17:55:40 05/21/2024 05/21/2024 Actinic keratosi s - precancerous diagnosis reviewed. cryo therapy x 1 sites treated: R lateral cheek Not available 05/21/2024 11:04:21 06/29/2024 06/29/2024 Actinic keratosi s thin residual - precancerous diagnosis reviewed. cryo therapy x 1 sites treated: R cheek Epidermal cyst, noninflamed R posterior upper arm- diagnosis reviewed. Discussed no treatment needed. Benign nevi R posterior upper arm and L flank-discussed not suspicious Recommend monitor for changes. Seborrheic keratosis L flank - diagnosis reviewed. Pt reassured. Discussed no treatment needed. Not available 06/29/2024 15:12:25 Plan of Treatment Reminders Order Date Submit Date Provider Last Modified By Organization Details Last Modified Time Details Appointments EXISTI NG PT Full Skin Check 2024 01:15P [facility] Not available Not available Not available Lab None record ed. Referral None record ed. Procedures None record ed. Surgeries None record ed. Imaging None record ed. Medication Orders None record ed. Patient TargetsNo targets recorded. Patient InstructionsNo instructions recorded. Reason for Referral None Reported. Problems Name Problem SNOMED Code Status Onset Date Resolution Date Notes Provider Name and Address Organization Details Recorded Time Actinic keratosis 237211097 Active 019 Kelley Terrazas MD [address] [place] [address], [address], [place], [address], HOLLIE Terrazas MD 9 12:45:54 Problem Notes None recorded. Procedures Surgical History Date Name Laterality Status Provider Name and Address Organization Details Recorded Time 5 Cryosurgery aks completed Kelley Terrazas MD [address] [place] [address], [address], [place], [address], [place] HOLLIE Terrazas MD 07/05/2024 21:41:53 5 Cryosurgery aks completed Kelley Terrazas MD [address] [place] [address], [address], [place], [address], HOLLIE Terrazas MD 05/24/2024 21:51:17 4 Cryosurgery benign lesions 1 completed Kelley Terrazas MD [address] [place] [address], [address], [place], [address], HOLLIE Terrazas MD 04/04/2024 23:15:39 3 Cryosurgery benign lesions 1 completed Kelley Terrazas MD [address] [place] [address], [address], [place], [address], HOLLIE Terrazas MD 05/20/2022 23:04:22 0 Cryosurgery benign lesions 1 completed Kelley Terrazas MD [address] [place] [address], [address], [place], [address], HOLLIE Terrazas MD 12/16/2019 17:45:51 9 Cryosurgery benign lesions 1 completed Kelley Terrazas MD [address] [place] [address], [address], [place], [address], HOLLIE Terrazas MD 01/25/2019 17:02:48 9 Cryosurgery aks completed Kelley Terrazas MD [address] [place] [address], [address], [place], [address], HOLLIE Terrazas MD 05/31/2018 14:55:18 7 Cryosurgery benign lesions 1 completed Kelley Terrazas MD [address] [place] [address], [address], [place], [address], HOLLIE Terrazas MD 11/25/2016 23:40:37 Imaging Results None recorded. Procedure Notes None recorded. Medical Equipment None Reported. Allergies Allergen ID Allergen Name Allergen Category Reaction Reaction Severity Criticality Documentation Date Start Date Code Code System Note Provider Name and Address Organization Details Recorded Time 71399 codeine medicatio n Not available Not available Not available 05/14/2023 2670 RxNorm August HOLLIE Dumont MD 4 11:21:04 52065 Benadryl medicatio n Not available Not available Not available 05/14/2023 15305 7 RxNorm HOLLIE Ch MD 4 11:21:11 231 bacitraci n / neomycin / polymyxin B medicatio n Not available Not available Not available 06/28/2016 87954 9 RxNorm HOLLIE Carrillo MD 7 16:39:43 232 bacitraci n medicatio n Not available Not available Not available 06/28/2016 1291 RxNorm HOLLIE Carrillo MD 7 16:39:53 233 Polyspori n medicatio n Not available Not available Not available 06/28/2016 12829 RxNorm HOLLIE Carrillo MD 7 16:40:04 234 adhesive environme nt,medica tion Not available Not available Not available 06/28/2016 74899 UNK HOLLIE Carrillo MD 7 16:40:12 235 petrolatu m medicatio n Not available Not available Not available 06/28/2016 8091 KathyNoHOLLIE New MD 7 16:40:22 Medications Name Sig Start Date Stop Date Status Note LastModified by Organization Details LastModified Time amoxicillin 500 mg capsule 06/28 completed Not Available Not Available Not Available atorvastati n 40 mg tablet 01/20 completed Not Available Not Available Not Available venlafaxine ER 37.5 mg capsule,ext ended release 24 hr active Not Available Not Available Not Available prednisone 10 mg tablet TAKE 4 TABLETS BY MOUTH EVERY DAY FOR 10 DAYS active Not Available Not Available No t Available doxycycline hyclate 100 mg capsule active Not Available Not Available N ot Available atorvastati n 20 mg tablet 07/02 completed Not Available Not Available Not Available albuterol sulfate 2.5 mg/3 mL (0.083 %) solution for nebulizatio n active Not Available Not Available Not Available azithromyci n 250 mg tablet 02/05 completed Not Available Not Available Not Available pravastatin 40 mg tablet 12/14 completed Not Available Not Available Not Available ibuprofen 800 mg tablet TAKE 1 TABLET BY MOUTH EVERY 8 HOURS NEEDED FOR PAIN 09/21 completed Not Available Not Available Not Available benzonatate 200 mg capsule TAKE 1 CAPSULE BY MOUTH THREE TIMES DAILY NEEDED FOR COUGH. active Not Available Not Available No t Available cephalexin 250 mg capsule 12/14 completed Not Available Not Available Not Available hydrocodone 5 mg-acetamin ophen 325 mg tablet TAKE 1 TO 2 TABLETS BY MOUTH EVERY 6 HOURS NEEDED FOR PAIN active Not Available Not Available No t Available meloxicam 15 mg tablet active Not Available Not Available Not Available prednisone 20 mg tablet TAKE 2 TABLETS BY MOUTH EVERY DAY FOR 5 DAYS active Not Available Not Available No t Available pimecrolimu s 1 % topical cream active Not Available Not Available Not Available penicillin V potassium 500 mg tablet TAKE 1 TABLET BY MOUTH FOUR TIMES DAILY active Not Available Not Available No t Available meclizine 12.5 mg tablet active Not Available Not Available Not Available ciprofloxac in 250 mg tablet 06/28 completed Not Available Not Available Not Available sulfamethox azole 800 mg-trimetho prim 160 mg tablet active Not Available Not Available Not Available triamcinolo ne acetonide 0.1 % topical cream active Not Available Not Available Not Available amoxicillin 500 mg tablet TAKE 1 TABLET BY MOUTH THREE TIMES DAILY active Not Available Not Available No t Available terbinafine HCl 250 mg tablet TAKE 1 TABLET BY MOUTH EVERY DAY active Not Available Not Available No t Available ofloxacin 0.3 % ear drops INSTILL 5 DROPS INTO THE RIGHT EAR TWICE DAILY FOR 10 DAYS 09/21 completed Not Available Not Available Not Available amoxicillin 875 mg tablet TAKE 1 TABLET BY MOUTH TWICE DAILY UNTIL ALL TAKEN 09/21 completed Not Available Not Available Not Available prednisolon e acetate 1 % eye drops,suspe nsion 07/02 completed Not Available Not Available Not Available oseltamivir 75 mg capsule active Not Available Not Available Not Available gabapentin [...] Available mupirocin 2 % topical ointment APPLY TOPICALLY TO NASAL CAVITY THREE TIMES DAILY DIRECTED active Not Available Not Available No t Available hydrocortis one butyrate 0.1 % topical cream apply to chest bid [id number] 01/20 completed Not Available Not Available Not Available clobetasol 0.05 % topical ointment 09/21 completed Not Available Not Available Not Available azelastine 137 mcg (0.1 %) nasal spray USE 1 TO 2 SPRAYS IN EACH NOSTRIL TWICE DAILY DIRECTED active Not Available Not Available No t Available levofloxaci n 500 mg tablet 11/15 completed Not Available Not Available Not Available estradiol 0.01% (0.1 mg/gram) vaginal cream INSERT 1 GRAM VAGINALLY DIRECTED active Not Available Not Available No t Available levofloxaci n 750 mg tablet active Not Available Not Available Not Available methylpredn isolone 4 mg tablets in a dose pack FOLLOW PACKAGE DIRECTION S active Not Available Not Available No t Available albuterol sulfate HFA 90 mcg/actuati on aerosol inhaler INHALE 2 INHALATIO NS BY MOUTH FOUR TIMES DAILY NEEDED active Not Available Not Available No t Available ketoconazol e 2 % topical cream active Not Available Not Available Not Available amoxicillin 875 mg-potassiu m clavulanate 125 mg tablet TAKE 1 TABLET BY MOUTH EVERY 12 HOURS FOR 7 DAYS active Not Available Not Available No t Available Vitamin D3 25 mcg (1,000 unit) tablet Take by oral route. active Not Available Not Available No t Available cyclobenzap rine 5 mg tablet active Not Available Not Available Not Available rosuvastati n 20 mg tablet TAKE 1 TABLET BY MOUTH DAILY active Not Available Not Available No t Available nitrofurant oin monohydrate /macrocryst als 100 mg capsule active Not Available Not Available Not Available vitamin E active Not Available Not Sophia ilable Not Available vitamin B complex active Not Available Not Available Not Available GaviLyte-G 236 gram-22.74 gram-6.74 gram-5.86 gram oral solution 12/14 completed Not Available Not Available Not Available Zyrtec 10 mg capsule Take by oral route. active Not Available Not Available No t Available Eliquis 5 mg tablet TAKE 1 TABLET BY MOUTH TWICE DAILY active Not Available Not Available No t Available Virtussin AC 10 mg-100 mg/5 mL oral liquid 06/28 completed Not Available Not Available Not Available Jublia 10 % topical solution with applicator 09/21 completed Not Available Not Available Not Available Kerydin 5 % topical solution with applicator 09/21 completed Not Available Not Available Not Available Airsupra 90 mcg-80 mcg/actuati on HFA aerosol inhaler INHALE 2 PUFFS BY MOUTH EVERY 4 HOURS NEEDED FOR CHEST TIGHTNESS OR COUGHING OR WHEEZING. DO NOT EXCEED 12 PUFFS IN 24 HOURS active Not Available Not Available No t Available Vitals None Recorded Social History Question Answer Notes LastModified by Organizat ion Details LastModified Time Tobacco Smoking Status Never Smoker HOLLIE Carrillo MD 06/28/2016 16:42:59 What Is Your Level Of Alcohol Consumption? Occasional Information not available 06/28/2016 In The 14 Days Before Symptom Onset, Have You Had Close Contact With A Laboratory-confirm ed COVID-19 While That Case Was Ill? No [email or web address] Information n ot available 12/15/2019 In The 14 Days Before Symptom Onset, Have You Had Close Contact With A Person Who Is Under Investigation For COVID-19 While That Person Was Ill? No [email or web address] Information not available 12/15/2019 Have You Been To An Area Known To Be High Risk For COVID-19? No [email or web address] Information not available 12/15/2019 Does Patient Have Any Fever, Cough, Sore Throat Or New Shortness Of Breath? No [email or web address] Information not available 12/15/2019 What Was The Date Of Your Most Recent Tobacco Screening? 05/21/2024 [email or web address] Information not available 05/21/2024 Sun Exposure Occasional Information not available 06/28/2016 Do You Use Sunscreen Routinely? Yes Information not available 06/28/2016 Tanning Bed Exposure No Information not available 06/28/2016 Sex: Unknown Functional Status None recorded. Mental Status None recorded. Family History Relationship Description Onset Age of this Age Resolved Age Notes LastModified by Organization Details LastModified Time Mother Malignant tumor of breast Not available 2016 16:42:16 Mother Hypertensive disorder Not available 2016 16:42:45 Medical History Condition Response Diabetes N Bleeding Disorder N Arthritis Y Hyperthyroidism N Defibrillator N Cancer N Stroke N Asthma N Hypothyroidism N Lupus N HIV/AIDS N Pacemaker N Psoriasis N Anemia N Hepatitis N Heart Disease N Hypertension N Gynecological HistoryNo gynecological history recorded. Obstetrics History GPAL:G 0 P 0 0 0 0 Past Encounters Encounter ID Performer Location Encounter Start Date Encounter Closed Date Diagnosis/Indication Diagnosis SNOMED-CT Code Diagnosis ICD10 Code Diagnosis Note [id number] Kelley Terrazas MD Main Office [address] [place] [address] 48405-957 7 06/28/2016 15:57:19 06/28/2016 16:59:44 Second degree burn of chest wall 91478563 T21.21XA [id number] Kelley Terrazas MD Main Office [address] [place] [address] 57971-312 7 11/15/2016 15:23:51 11/15/2016 17:02:08 Inflamed seborrheic keratosis 998838891 L82.0 Itching of skin 29909798 0 L29.8 Solar telangiectasia 238 807292 I78.1 Corns and callus 2794868 00 L84 [id number] Kelley Terrazas MD Main Office [address] [place] [address] 75527-427 7 02/05/2017 14:13:25 02/05/2017 15:42:26 Disorder of nail 19244747 L60.3 [id number] Kelley Terrazas MD Main Office [address] [place] [address] 70994-931 7 07/02/2017 11:59:25 07/02/2017 12:41:00 Polymorphous light eruption 941682669 L56.4 [id number] Kelley Terrazas MD Main Office [address] [place] [address] 15333-585 7 04/28/2018 09:29:58 04/28/2018 10:13:07 Actinic keratosis 038522152 L57.0 [id number] Kelley Terrazas MD Main Office [address] [place] [address] 65248-810 7 05/26/2018 12:15:11 05/26/2018 12:51:09 Actinic keratosis 567490339 L57.0 [id number] Kelley Terrazas MD Main Office [address] [place] [address] 45784-275 7 05/29/2018 12:38:33 05/29/2018 13:45:45 Telangiectasia of skin of face 612066428 I78.1 [id number] Kelley Terrazas MD Main Office [address] [place] [address] 85291-268 7 01/20/2019 15:01:13 01/20/2019 15:55:37 Inflamed seborrheic keratosis 675717763 L82.0 [id number] Kelley Terrazas MD Main Office [address] [place] [address] 27150-894 7 03/10/2019 16:16:05 03/10/2019 17:07:35 Senile hyperkeratosis 128155143 L82.1 Melanocyti c nevus of trunk 384083961 D22.5 Melanocyti c nevus of upper limb 667862373 D22.61 Ecchymosis 043399160 R58 [id number] Kelley Terrazas MD Main Office [address] [place] [address] 50690-937 7 12/15/2019 14:18:51 12/15/2019 14:45:07 Inflamed seborrheic keratosis 389419678 L82.0 Solar telangiectasia 238 735416 I78.1 [id number] Kelley Terrazas MD Main Office [address] [place] [address] 05349-942 7 01/02/2021 15:00:35 01/02/2021 15:52:48 Senile hyperkeratosis 943649606 L82.1 Melanocyti c nevus of trunk 148590229 D22.5 Melanocyti c nevus of upper limb 937072073 D22.61 Melanocyti c nevus of face 087503612 D22.30 [id number] Kelley Terrazas MD Main Office [address] [place] [address] 81070-050 7 09/21/2021 11:37:21 09/21/2021 12:41:40 Senile hyperkeratosis 505084885 L82.1 Melanocyti c nevus of upper limb 348720069 D22.61 [id number] Kelley Terrazas MD Main Office [address] [place] [address] 04710-834 7 11/28/2021 13:10:14 11/28/2021 13:56:00 Melanocytic nevus of skin of thigh 535665694 D22.71 Insect bit e, nonvenomous, lower leg 969344435 S80.861A [id number] Kelley Terrazas MD Main Office [address] [place] [address] 44634-842 7 05/15/2022 12:42:23 05/15/2022 13:54:25 Inflamed seborrheic keratosis 454419895 L82.0 [id number] Kelley Terrazas MD Main Office [address] [place] [address] 76138-780 7 08/21/2022 11:24:01 08/21/2022 12:23:38 Seborrheic keratosis 064672165 L82.1 Hemangioma of skin 37790 006 D18.01 Melanocyti c nevus of trunk 544849640 D22.5 [id number] Kelley Terrazas MD Main Office [address] [place] [address] 66497-662 7 05/14/2023 11:07:34 05/14/2023 11:39:09 Seborrheic keratosis 484033434 L82.1 Superficia l injury of neck 969576848 S10.90XA [id number] Kelley Terrazas MD Main Office [address] [place] [address] 72062-739 7 01/07/2024 14:31:38 01/07/2024 14:58:59 Subcutaneous nodule 61353985 R22.9 Lentigo 714554452 L81.4 Seborrheic keratosis 394 030339 L82.1 [id number] Kelley Terrazas MD Main Office [address] [place] [address] 28848-794 7 03/31/2024 17:01:04 04/08/2024 11:51:26 Inflamed seborrheic keratosis 851821720 L82.0 [id number] Kelley Terrazas MD Main Office [address] [place] [address] 55219-105 7 05/21/2024 10:33:46 05/21/2024 11:05:36 Actinic keratosis 959819204 L57.0 [id number] Kelley Terrazas MD Main Office [address] [place] [address] [address] [place] [address] 06/29/2024 13:57:38 06/29/2024 14:28:25 Actinic keratosis 096454629 L57.0 Epidermoid cyst of skin 161322348 L72.0 Melanocyti c nevus of trunk 784156651 D22.5 Seborrheic keratosis 394 239669 L82.1 Health Concerns Section Related Observation LastModified by Organization Detai ls LastModified Time None Recorded Concern Status LastModified by Organization Details LastModified Time None Recorded Advance Directives Directive None Recorded Payers Encounter Date Sequence Insurance Name Policy Number Policy Sylvester Covered Member ID Sylvester Member ID Guarantor Name 05/14/2023 1 [employer] (MEDICARE REPLACEMENT PPO) [id number] 1 Phyllis Guerra Mchugh [id number] Phyllis L Mchugh 01/07/2024 1 [employer] (MEDICARE REPLACEMENT PPO) [id number] 1 Phyllischelo Mchugh [id number] Phyllis Guerra Mchugh 03/31/2024 1 [employer] (MEDICARE REPLACEMENT PPO) [id number] 1 Phyllis L Mchugh [id number] Phyllis L Mchugh 05/21/2024 1 [employer] (MEDICARE REPLACEMENT PPO) [id number] 1 Phyllis Guerra Mchugh [id number] Phyllis L Mchugh 06/29/2024 1 [employer] (MEDICARE REPLACEMENT PPO) [id number] 1 Phyllis Guerra Mchugh [id number] Phyllis Mchugh Notes Date Note Type Note Provider Name and Address Organization Details Recorded Time 05/14/2023 text/html Spot check Spot corner right eyex 2 weekspt states physical therapist saw dark spot, no irritationnot bothersomeno treatment Spot base of hairline on the L sidex 6 monthsraised, catches on brush, no irritation, sometimes crustyshe notes recently had haircut and nicked with the hairdressernot sore or tenderno treatment Kelley Terrazas MD [address], [address], [place], [address], HOLLIE - Kelley Terrazas MD 05/14/2023 11:37:08 01/07/2024 text/html Full body skin c heck bump she can feel on the L back of the hairlinenot bothersome wondering options for anti-aging creams no other concerns no other bleeding spots, changing moles, or sores that don't want to heal. Kelley Terrazas MD [address] [place] [address], [address], [place], [address], HOLLIE Terrazas MD 01/13/2024 20:05:30 03/31/2024 text/html Spot check Spot on R upper armx 3-4 weekspatient states spot is crusty and not healingwhile sleeping, it has been bothersome as sensitive with rubbing on the sheetsno at home treatment Kelley Terraazs MD [address] [place] [address], [facility] [address], [place], [address], HOLLIE Terrazas MD 04/04/2024 23:15:55 05/21/2024 text/html Spot check Spot on R cheekpatient states spot is not new but changed where it is itching, sore, tender, raised and roughpatient only using lotion and face wash Kelley Terrazas MD [address] [place] [address], [address], [place], [address], HOLLIE Terrazas MD 05/24/2024 21:51:36 06/29/2024 text/html Spot check rt upper armx couple weekssome soreness and crustiness with the bump there but now betteralso with raised bump above it and not sure if it is a mole rt voodoo/cheel areax couple monthsprior liquid nitrogen there but still a little scaly area of raised spots on the L siderecently was scaling there Kelley Terrazas MD [address] [place] [address], [facility] [address], [place], [address], HOLLIE Terrazas MD 07/05/2024 21:42:37 OBGyn Episode No OBEpisode recorded.
[2024-07-24 07:59] LABS: Hematocrit 39.4 % (35.0-42.0); Hemoglobin 12.7 g/dL (11.7-13.8); Mean Corpuscular HGB Conc 32.2 g/dL (32-36); Mean Corpuscular Hemoglobin 30.5 pg (27.0-31.0); Mean Corpuscular Volume 94.7 fL (78.0-102.0); Mean Platelet Volume 10.4 fl (9.2-11.8); Platelet Count Result 288 K/mm3 (150-420); Red Blood Count 4.16 M/mm3 (4.20-5.40); Red Cell Distribution Width 13.5 % (11.6-14.4); White Blood Count 5.8 K/mm3 (4.8-10.8)
[2024-07-24 08:29] LABS: Alanine Aminotransferase 30 U/L (14-59); Albumin Level 3.9 g/dL (3.4-5.0); Alkaline Phosphatase 110 U/L (46-116); Anion Gap 10 mmol/L (4-12); Aspartate Amino Transferase 15 U/L (15-37); Bilirubin,Total 0.4 mg/dL (0.00-1.00); Blood Urea Nitrogen 14 mg/dL (7-18); Calcium 9.2 mg/dL (8.5-10.1); Carbon Dioxide 27 mmol/L (21-32); Chloride 108 mmol/L (98-108); Estimated Glomerular Filt Rate 59; Glucose 92 mg/dL (70-99); Osmolality Calculated 300 mOsm/kg (285-295); Potassium 4.4 mmol/L (3.5-5.1); Sodium 145 mmol/L (136-145); Total Protein 6.9 g/dL (6.4-8.2)
[2024-07-24 09:19] LABS: Add Urine Microscopic? YES; Appearance Urine Clear (Clear); Bilirubin Urine Negative (Negative); Blood Urine Negative (Negative); Color Urine Light Yellow (Yellow); Glucose Urine UA Negative (Negative); Ketones Urine Negative (Negative); Leukocyte Esterase Ur 2+ (Negative); Nitrate Urine Negative (Negative); Protein Urine Negative (Negative); Urobilinogen Urine 0.2 mg/dL (0.2-1.0)
[2024-07-24 09:41] LABS: Bacteria Urine Trace /hpf; RBC Urine None seen /hpf (0-2); Renal Epithelial Cells Urine Few /hpf; Squamous Epithelial Cell Urine Few /hpf (Few); WBC Urine 31-50 /hpf (0-3)
[2024-07-27 12:39] LABS: Thyroid Stimulating Hormone 1.94 uIU/mL (0.36-3.74)
[2024-07-28 13:24] LABS: Anti Cardio Antibody IgM <2.0 MPL-U/mL; Anti Cardiolipin Antibody IgA <2.0 APL-U/mL; Anti Cardiolipin Antibody IgG <2.0 GPL-U/mL
[2024-07-28 17:43] LABS: PS/PT AB IgG <9 U (< OR = 30); PS/PT AB IgM <9 U (< OR = 30)
== END 2024-07-24 07:20 | disposition home or self-care (01) ==
LOC: CHSLAB 07:21
PROVIDERS: PCP Internal Medicine; Visit Provider Internal Medicine
DX: I82.401 Acute embolism and thrombosis of unspecified deep veins of right lower extremity (principal); N39.0 Urinary tract infection, site not specified; E78.5 Hyperlipidemia, unspecified
CPT/HCPCS: 36415; 80053; 81001; 84443; 85027; 86146; 87086; 87088

== ENCOUNTER 2024-07-28 14:25 | Outpatient (CLI) | payer MEDICARE, SELFPAY ==
--- NOTE | ~2024-07-28 | US_ITS ---
EXAMINATION:US venous doppler LE RT INDICATION:Right leg pain TECHNIQUE: Multiple grayscale, color flow and Doppler images of the right lower extremity deep venous systems were obtained and reviewed. COMPARISON:No prior studies for comparison. FINDINGS: The common femoral, superficial femoral and popliteal veins demonstrate normal respiratory variation, augmentation and compressibility. Color flow is also seen within the posterior tibial, pe roneal, greater saphenous and profunda veins. IMPRESSION: 1: No lower extremity deep venous thrombosis. Reviewed, dictated and finalized at location B.
--- OUTSIDE RECORDS SUMMARY | 2024-07-28 16:12 | XMS_ITS | Data Portability ---
Author Organization [facility] Address [address], [address] [place] [address] Care Team Providers Care Benzene Still Utility Operator Name Role Phone ALEXANDER MORROW Primary Care Provider Assessment Encounter Date Assessment Date Assessment LastModified by Organization Details LastModified Time 05/14/2023 05/14/2023 Favor thin SK an d less likely lentigo R medial restoration Discussed diagnosis Reassurance Recommend monitor for changes [...] Address Organization Details Recorded Time Actinic keratosis [id number] Active 019 Kelley Terrazas MD [address] [place] [address], [address], [place], [address], HOLLIE Terrazas MD 9 12:45:54 Problem Notes None recorded. Procedures Surgical History Date Name Laterality Status Provider Name and Address Organization Details Recorded Time 5 Cryosurgery aks completed Kelley Terrazas MD [address] [place] [address], [address], [place], [address], [place] HOLLIE Terrazas MD 07/05/2024 21:41:53 5 Cryosurgery aks completed Kelley Terrazas MD [address] [place] [address], [address], [place], [address], HOLLIE Terrazas MD 05/24/2024 21:51:17 4 Cryosurgery benign lesions 1 completed Kelley Terrazas MD [address] [place] [address], [address], [place], [address], HOLLIE Terrazas MD 04/04/2024 23:15:39 3 Cryosurgery benign lesions 1 completed Kelley Terrazas MD [address] [place] [address], [address], [place], [address], HOLLIE Terrazas MD 05/20/2022 23:04:22 0 Cryosurgery benign lesions 1 completed Kelley Terrazas MD [address] [place] [address], [address], [place], [address], HOLLIE Terrazas MD 12/16/2019 17:45:51 9 Cryosurgery benign lesions 1 completed Kelley Terrazas MD [address] [place] [address], [address], [place], [address], HOLLIE Terrazas MD 01/25/2019 17:02:48 9 Cryosurgery aks completed Kelley Terrazas MD [address] [place] [address], [address], [place], [address], HOLLIE Terrazas MD 05/31/2018 14:55:18 7 Cryosurgery benign lesions 1 completed Kelley Terrazas MD [address] [place] [address], [address], [place], [address], HOLLIE Terrazas MD 11/25/2016 23:40:37 Imaging Results None recorded. Procedure Notes None recorded. Medical Equipment None Reported. Allergies Allergen ID Allergen Name Allergen Category Reaction Reaction Severity Criticality Documentation Date Start Date Code Code System Note Provider Name and Address Organization Details Recorded Time 06897 codeine medicatio n Not available Not available Not available 05/14/2023 2670 RxNorm August HOLLIE Dumont MD 4 11:21:04 78038 Benadryl medicatio n Not available Not available Not available 05/14/2023 31785 7 RxNorm HOLLIE Ch MD 4 11:21:11 231 bacitraci n / neomycin / polymyxin B medicatio n Not available Not available Not available 06/28/2016 51792 9 RxNorm HOLLIE Carrillo MD 7 16:39:43 232 bacitraci n medicatio n Not available Not available Not available 06/28/2016 1291 RxNorm HOLLIE Carrillo MD 7 16:39:53 233 Polyspori n medicatio n Not available Not available Not available 06/28/2016 00287 RxNorm HOLLIE Carrillo MD 7 16:40:04 234 adhesive environme nt,medica tion Not available Not available Not available 06/28/2016 59120 UNK HOLLIE Carrillo MD 7 16:40:12 235 [...] % topical cream apply to chest bid [email or web address] 01/20 completed Not Available Not Available Not [...] COVID-19 While That Case Was Ill? No [email or web address] Information n ot available 12/15/2019 In The 14 Days Before Symptom Onset, Have You Had Close Contact With A Person Who Is Under Investigation For COVID-19 While That Person Was Ill? No [email or web address] Information not available 12/15/2019 Have You Been To An Area Known To Be High Risk For COVID-19? No [email or web address] Information not available 12/15/2019 Does Patient Have Any Fever, Cough, Sore Throat Or New Shortness Of Breath? No [email or web address] Information not available 12/15/2019 What Was The Date Of Your Most Recent Tobacco Screening? 05/21/2024 [email or web address] Information not available 05/21/2024 Sun Exposure Occasional [...] available 2016 16:42:45 Medical History Condition Response Hyperthyroidism N Defibrillator N Hypothyroidism N Pacemaker N Anemia N Diabetes N Bleeding Disorder N Arthritis Y Cancer N Stroke N Asthma N Lupus N HIV/AIDS N Psoriasis N Hepatitis N Heart Disease N Hypertension N Gynecological HistoryNo gynecological history recorded. Obstetrics History GPAL:G 0 P 0 0 0 0 Past Encounters Encounter ID Performer Location Encounter Start Date Encounter Closed Date Diagnosis/Indication Diagnosis SNOMED-CT Code Diagnosis ICD10 Code Diagnosis Note [id number] Kelley Terrazas MD Main Office [address] [place] [address]63[address] 7 06/28/2016 15:57:19 06/28/2016 16:59:44 Second degree burn of chest wall 93069122 T21.21XA [id number] Kelley Terrazas MD Main Office [address] [place] [address] 37392-347 7 11/15/2016 15:23:51 11/15/2016 17:02:08 Inflamed seborrheic keratosis 241022567 L82.0 Itching of skin 42486039 0 L29.8 Solar telangiectasia 238 294468 I78.1 Corns and callus 6675708 00 L84 [id number] Kelley Terrazas MD Main Office [address] [place] [address] 72145-113 7 02/05/2017 14:13:25 02/05/2017 15:42:26 Disorder of nail 80478845 L60.3 [id number] Kelley Terrazas MD Main Office [address] [place] [address]16-270 7 07/02/2017 11:59:25 07/02/2017 12:41:00 Polymorphous light eruption 016899840 L56.4 [id number] Kelley Terrazas MD Main Office [address] [place] [address] 03010-815 7 04/28/2018 09:29:58 04/28/2018 10:13:07 Actinic keratosis 653897347 L57.0 [id number] Kelley Terrazas MD Main Office [address] [place] [address] 35669-509 7 05/26/2018 12:15:11 05/26/2018 12:51:09 Actinic keratosis 865133061 L57.0 [id number] Kelley Terrazas MD Main Office [address] [place] [address] 01005-222 7 05/29/2018 12:38:33 05/29/2018 13:45:45 Telangiectasia of skin of face 861694327 I78.1 [id number] Kelley Terrazas MD Main Office [address] [place] [address] 23124-594 7 01/20/2019 15:01:13 01/20/2019 15:55:37 Inflamed seborrheic keratosis 833868345 L82.0 [id number] Kelley Terrazas MD Main Office [address] [place] [address] 37603-110 7 03/10/2019 16:16:05 03/10/2019 17:07:35 Senile hyperkeratosis 642171672 L82.1 Melanocyti c nevus of trunk 364989047 D22.5 Melanocyti c nevus of upper limb 600265385 D22.61 Ecchymosis 252927812 R58 [id number] Kelley Terrazas MD Main Office [address] [place] [address] 13204-719 7 12/15/2019 14:18:51 12/15/2019 14:45:07 Inflamed seborrheic keratosis 214434091 L82.0 Solar telangiectasia 238 909349 I78.1 [id number] Kelley Terrazas MD Main Office [address] [place] [address] 19356-800 7 01/02/2021 15:00:35 01/02/2021 15:52:48 Senile hyperkeratosis 640056620 L82.1 Melanocyti c nevus of trunk 862082143 D22.5 Melanocyti c nevus of upper limb 514930750 D22.61 Melanocyti c nevus of face 552208188 D22.30 [id number] Kelley Terrazas MD Main Office [address] [place] [address]474 7 09/21/2021 11:37:21 09/21/2021 12:41:40 Senile hyperkeratosis 799042561 L82.1 Melanocyti c nevus of upper limb 318947429 D22.61 [id number] Kelley Terrazas MD Main Office [address] [place] [address] 31937-843 7 11/28/2021 13:10:14 11/28/2021 13:56:00 Melanocytic nevus of skin of thigh 519516331 D22.71 Insect bit e, nonvenomous, lower leg 678363908 S80.861A [id number] Kelley Terrazas MD Main Office [address] [place] [address]16[address] 7 05/15/2022 12:42:23 05/15/2022 13:54:25 Inflamed seborrheic keratosis 202425359 L82.0 [id number] Kelley Terrazas MD Main Office [address] [place] [address] 92547-455 7 08/21/2022 11:24:01 08/21/2022 12:23:38 Seborrheic keratosis 070811924 L82.1 Hemangioma of skin 20077 006 D18.01 Melanocyti c nevus of trunk 388901470 D22.5 [id number] Kelley Terrazas MD Main Office [address] [place] [address] 71586-617 7 05/14/2023 11:07:34 05/14/2023 11:39:09 Seborrheic keratosis 735141978 L82.1 Superficia l injury of neck 709536577 S10.90XA [id number] Kelley Terrazas MD Main Office [address] [place] [address] 65[address] 7 01/07/2024 14:31:38 01/07/2024 14:58:59 Subcutaneous nodule 64696865 R22.9 Lentigo 979308529 L81.4 Seborrheic keratosis 394 358570 L82.1 [id number] Kelley Terrazas MD Main Office [address] [place] [address]32-400 7 03/31/2024 17:01:04 04/08/2024 11:51:26 Inflamed seborrheic keratosis 310971474 L82.0 [id number] Kelley Terrazas MD Main Office [address] [place] [address] 46992-107 7 05/21/2024 10:33:46 05/21/2024 11:05:36 Actinic keratosis 561257171 L57.0 [id number] Kelley Terrazas MD Main Office [address] [place] [address] [address] [place] [address] 06/29/2024 13:57:38 06/29/2024 14:28:25 Actinic keratosis 163929550 L57.0 Epidermoid cyst of skin 869471288 L72.0 Melanocyti c nevus of trunk 343719995 D22.5 Seborrheic keratosis 394 243882 L82.1 Health Concerns Section Related Observation LastModified by Organization Detai ls LastModified Time None Recorded Concern Status LastModified by Organization Details LastModified Time None Recorded Advance Directives Directive None Recorded Payers Encounter Date Sequence Insurance Name Policy Number Policy Sylvester Covered Member ID Sylvester Member ID Guarantor Name 05/14/2023 1 [employer] (MEDICARE REPLACEMENT PPO) [id number] 1 Phyllis Guerra Mchugh [id number] Phyllis L Mchugh 01/07/2024 1 [employer] (MEDICARE REPLACEMENT PPO) [id number] 1 Phyllischelo Mchugh [id number] Phyllis Guerra Mchugh 03/31/2024 1 [employer] (MEDICARE REPLACEMENT PPO) [id number] 1 Phyllis L Mchugh [id number] Phyllis L Mchugh 05/21/2024 1 [employer] (MEDICARE REPLACEMENT PPO) [id number] 1 Phyllis Guerra Mchugh [id number] Phyllis L Mchugh 06/29/2024 1 [employer] (MEDICARE REPLACEMENT PPO) [id number] 1 Phyllis Guerra Mchugh [id number] Phyllis Mchugh Notes Date Note Type Note [...] or tenderno treatment Kelley Terrazas MD [address] [facility], [address], [place], [address], HOLLIE - Kelley Terrazas MD 05/14/2023 11:37:08 01/07/2024 text/html Full body skin c heck bump she can feel on the L back of the hairlinenot bothersome wondering options for anti-aging creams no other concerns no other bleeding spots, changing moles, or sores that don't want to heal. Kelley Terrazas MD [address] [place] [address], [address], [place], [address], HOLLIE Terrazas MD 01/13/2024 20:05:30 03/31/2024 text/html Spot check Spot on R upper armx 3-4 weekspatient states spot is crusty and not healingwhile sleeping, it has been bothersome as sensitive with rubbing on the sheetsno at home treatment Kelley Terrazas MD [address] [place] [address], [facility] [address], [place], [address], HOLLIE Terrazas MD 04/04/2024 23:15:55 05/21/2024 text/html Spot check Spot on R cheekpatient states spot is not new but changed where it is itching, sore, tender, raised and roughpatient only using lotion and face wash Kelley Terrazas MD [address] [place] [address], [address], [place], [address], HOLLIE Terrazas MD 05/24/2024 21:51:36 06/29/2024 text/html Spot check rt upper armx couple weekssome soreness and crustiness with the bump there but now betteralso with raised bump above it and not sure if it is a mole rt restoration/cheel areax couple monthsprior liquid nitrogen there but still a little scaly area of raised spots on the L siderecently was scaling there Kelley Terrazas MD [address] [place] [address], [facility] [address], [place], [address], HOLLIE Terrazas MD 07/05/2024 21:42:37 OBGyn Episode No OBEpisode recorded.
--- OUTSIDE RECORDS SUMMARY | 2024-07-28 16:12 | XMS_ITS | Clinical Summary ---
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 Gender Identity Not on file Sexual Orientation Not on file Plan of Treatment Health Maintenance Due Date Last Done Comments Colorectal Cancer Screening Colonoscopy (10 Years) 1954 Hepatitis C 1972 Mammogram Screening 1994 Annual Medicare Wellness Visit 2019 COVID-19 Vaccine ( season) 2024 08/02/2020, 07/11/2020 PHQ-2 (Physician [place]) 05/13/2024 DTaP, Tdap and Td Vaccines (2 [...] Most Recently Relevant to Health Maintenance Insurance [employer] [facility] ACCESS [facility] MEDICARE [employer] Care Teams Barrel Liner Relationship Specialty Start Date End Date Teddy Saleh MD [address] [place] [phone] PCP - General FAMILY PRACTICE 10/27/19
--- OUTSIDE RECORDS SUMMARY | 2024-07-28 16:13 | XMS_ITS | Clinical Summary ---
Author Organization 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
--- OUTSIDE RECORDS SUMMARY | 2024-07-28 16:13 | XMS_ITS | Data Portability ---
Author Organization [place] [facility],, Lyndsay fang Address [address] [place] [address] Assessment No assessment recorded. Plan of Treatment Reminders Order Date Submit Date Provider Last Modified By Organization Details Last Modified Time Details Appointments ALLERG Y INJECT ION 2024 09:30A M Nurse Schedule Not available Not available Not available Lab None record ed. Referral None record ed. Procedures allerg y inject ion (PROC) 2024 025 [email or web address] [facility], [address], [facility] [address], [place], [address], 07/20/2024 12:04:21 allerg y inject ion (PROC) 2024 025 [email or web address], [address], [place], [address], 06/25/2024 11:34:26 allerg y inject ion (PROC) 2024 025 [email or web address], [address], [address], [place], [address], 05/29/2024 12:08:57 allerg y inject ion (PROC) 2023 024 [email or web address] [facility], [address], [address], [place], [address], 05/01/2024 12:52:51 allerg y inject ion (PROC) 2023 024 [email or web address] [facility], [address], [address], [place], [address], 04/06/2024 12:47:41 Surgeries None record ed. Imaging [...] and Address Organization Details Recorded Time Hyperlipidemia 73460444 Active [address], [place], [address], [place] [facility], 3 15:43:04 Osteoporosis 54488740 Active [address], [place], [address], [place] [facility], 3 15:43:37 Mild intermittent asthma 864249684 Active [address], [place], [address], [place] [facility], 4 15:34:56 Perennial allergic rhinitis with seasonal variation 014961593 Active [address], [place], [address], [place] [facility], 4 15:34:57 Allergy to mold 295180393 Active [address], [place], [address], [place] [facility], 4 12:38:01 Allergic rhinitis caused by pollen 38344973 Active [address], [place], [address], [place] [facility], 3 15:23:47 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 Medical Equipment None Reported. Allergies Allergen ID Allergen Name Allergen Category Reaction Reaction Severity Criticality Documentation Date Start Date Code Code System Note Provider Name and Address Organization Details Recorded Time 32988 codeine medicatio n itching other Not available Not available Not available 02/28/2017 2670 RxNorm Insom neelima Rashmi Duran null, [place] [facility], 7 15:30:52 41374 Benadryl medicatio n other Not available Not available 02/28/201708610 7 RxNorm Insom neelima Rashmi Roger null, [place] [facility], 7 15:31:09 62984 Zithromax medicatio n other Not available Not available 02/28/201719637 4 RxNorm Insom neelima Rashmi Roger null, [place] [facility], 7 15:31:27 61410 bacitraci n / neomycin / polymyxin B medicatio n hives Not available Not available 02/28/2017 89213 9 RxNorm Rashmi Roger null, [place] [facility], 7 15:32:05 91366 adhesive environme nt,medica tion hives Not available Not available 02/28/2017 60440 UNK Rashmi Antong null, [place] [facility], 7 15:32:42 12084 levofloxa jeanne medicatio n arthralgi a (joint pain) Not available high 07/04/2023 49428 RxNorm MD [address], [place], [address] [place] [address] - [facility], 4 17:13:54 [...] Relief 50 mcg/actuati on nasal spray,suspe nsion [place] 2 sprays every day by intranasa l [...] Is Your Level Of Alcohol Consumption? Occasional [email or web address] Information not available 10/17/2022 What Was The Date Of Your Most Recent Tobacco Screening? 02/27/2024 [email or web address] Information not available 02/27/2024 Do You Use Any Illicit Or Recreational Drugs? No Information not available 10/17/2022 Do You Or Have You Ever Used Any Other Forms Of Tobacco Or Nicotine? No [email or web address] Information not available 10/17/2022 Sex: Unknown Functional [...] N Hyperthyroidism N Tuberculosis N Cancer N Diverticulitis N Stroke N Asthma Y Allergies Y COPD N Depression N Stress N Hypothyroidism N GERD/Reflux N High Cholesterol Y Liver Disease N Heart Disease N Pulmonary [...] 1 completed MD [address] ,[address], [place], [address], [place] [facility], 10/21/2020 13:06:02 COVID-19, mRNA, LNP-S, PF, 100 mcg/0.5mL dose or 50 mcg/0.25mL dose 1 completed MD [address], [place], [address], [place] [facility], 10/21/2020 13:06:25 Influenza, split virus, quadrivalent, PF 8 completed Not Available [facility] 05/30/2019 02:14:14 Pneumococcal conjugate PCV 13 8 completed Not Available [facility] 05/30/2019 02:14:10 MMR 9 completed Not Available [facility] 05/30/2019 02:14:10 Tdap 9 completed Not Available [facility] 05/30/2019 02:14:10 Influenza, split virus, quadrivalent, PF 9 completed Not Available [facility] 05/30/2019 02:14:11 zoster recombinant 0 completed Ila [...] SNOMED-CT Code Diagnosis ICD10 Code Diagnosis Note [id number] Shaji yanes MD OFFICE [address] [place] [address] 8 02/28/2017 14:49:11 02/28/2017 17:01:46 Allergic rhinitis caused by pollen 50010677 J30.1 The patient's symptoms are compatible with [...] nase Vale ex Rhinoco rt Nasacort}} . [id number] EDSON Whitney OFFICE [address] [place] [address] 8 02/18/2018 15:07:07 02/18/2018 16:49:12 Administration of influenza vaccine 60425436 Z23 Patient received a Fluzone Quad influenza vaccine for this season per verbal consent without complicati on. Potential side effects including injection site redness and soreness was reviewed with patient. Allergic r hinitis caused by pollen 15546447 J30.1 {{2 INJ# Flona se Nasonex Rhinocort Nasacort}} . Patient received allergy immunother apy per patient's AIT regimen. No complicati ons noted. Patient to return per AIT treatment regimen schedule. [id number] Shaji yanes MD OFFICE [address] [place] [address] 04/15/2018 12:48:24 04/15/2018 13:24:17 Mild intermittent asthma 028790120 J45.20 stable Allergic r hinitis caused by pollen 29759924 J30.1 The patient is doing extremely well on the current regimen of medication s and immunother apy. I will continue This strategy in the future 2 INJ [id number] EDSON Whitney OFFICE [address] [place] [address] 8 05/08/2018 12:07:29 05/08/2018 14:32:36 Allergic rhinitis caused by pollen 43350325 J30.1 Patient received allergy immunother apy per patient's AIT regimen. No complicati ons noted. Patient to return per AIT treatment regimen schedule. Administra tion of pneumococcal vaccine 25856640 Z23 Patient received a Prevnar 13 vaccine for this season per verbal consent without complicati on. Potential side effects including injection site redness and soreness was reviewed with patient. [id number] Shaji yanes MD OFFICE [address] [place] [address] 8 10/28/2018 13:19:25 10/28/2018 14:20:16 Administration of measles and mumps and rubella vaccine 82138053 Z23 Allergic r hinitis caused by pollen 12837586 J30.1 [id number] Shaji yanes MD OFFICE [address] [place] [address] 8 11/25/2018 13:07:01 11/25/2018 15:06:01 Allergic rhinitis caused by pollen 67899478 J30.1 Administra tion of viral vaccine 73546108 Z23 [id number] EDSON Whitney OFFICE [address] [place] [address] 8 02/16/2019 12:30:56 02/16/2019 14:42:25 Allergic rhinitis caused by pollen 74149095 J30.1 Patient received allergy immunother apy per patient's AIT regimen. No complicati ons noted. Patient to return per AIT treatment regimen schedule. Administra tion of influenza vaccine 67084634 Z23 Patient received a Fluzone Quad influenza vaccine for this season per verbal consent without complicati on. Potential side effects including injection site redness and soreness was reviewed with patient prior to administra tion. [id number] Shaji yanes MD OFFICE [address] [place] [address] 08/15/2019 09:36:00 08/15/2019 10:29:04 Allergy to mold 346380951 Z91.048 2 INJ [id number] Shaji yanes MD OFFICE [address] [place] [address] 8 08/17/2019 16:01:53 08/17/2019 16:42:06 Contact dermatitis 29390636 L25.9 History is consistent with a contact dermatitis . Will try some clobetasol . [id number] Shaji yanes MD OFFICE [address] [place] [address] 8 09/11/2019 15:31:39 09/11/2019 15:59:14 Allergic rhinitis caused by pollen 95446702 J30.1 Patient received allergy immunother apy per patient's AIT regimen. No complicati ons noted. Patient to return per AIT treatment regimen schedule. [id number] Shaji yanes MD OFFICE [address] [place] [address] 8 10/09/2019 14:45:15 10/09/2019 15:53:51 Allergy to mold 623304647 Z91.048 2 INJ [id number] Shaji yanes MD OFFICE [address] [place] [address] 8 11/06/2019 10:59:30 11/06/2019 11:38:09 Administration of viral vaccine 90493238 Z23 Allergic r hinitis caused by pollen 34292535 J30.1 Patient received allergy immunother apy per patient's AIT regimen. No complicati ons noted. Patient to return per AIT treatment regimen schedule. [id number] Shaji yanes MD OFFICE [address] [place] [address] 8 12/01/2019 10:43:10 12/01/2019 11:41:25 Allergic rhinitis caused by pollen 61356809 J30.1 Patient received allergy immunother apy per patient's AIT regimen. No complicati ons noted. Patient to return per AIT treatment regimen schedule. [id number] Shaji yanes MD OFFICE [address] [place] [address] 8 01/01/2020 10:51:17 01/01/2020 12:01:54 Allergic rhinitis caused by pollen 05754297 J30.1 Patient received allergy immunother apy per patient's AIT regimen. No complicati ons noted. Patient to return per AIT treatment regimen schedule. Administra tion of viral vaccine 57113813 Z23 [id number] EDSON Whitney OFFICE [address] [place], [place] [id number] 8 01/29/2020 12:01:35 01/29/2020 15:12:23 Allergic rhinitis caused by pollen 50153785 J30.1 Patient received allergy immunother apy per patient's AIT regimen. No complicati ons noted. Patient to return per AIT treatment regimen schedule. Administra tion of influenza vaccine 82284746 Z23 Patient received a Fluad high-dose influenza vaccine for this season per verbal consent without complicati on. Potential side effects including injection site redness and soreness was reviewed with patient prior to administra tion. [id number] Shaji yanes MD OFFICE [address] [place] [address] 8 02/26/2020 12:18:04 02/26/2020 13:07:26 Allergy to mold 135023903 Z91.048 2 INJ Administra tion of pneumococcal vaccine 80202027 Z23 Patient received a Pneumovax- 23 vaccine for this season per verbal consent without complicati on. Potential side effects including injection site redness and soreness was reviewed with patient. [id number] Shaji yanes MD OFFICE [address] [place] [address] 8 03/25/2020 10:41:45 03/25/2020 11:27:26 Allergic rhinitis caused by pollen 09449808 J30.1 Patient received allergy immunother apy per patient's AIT regimen. No complicati ons noted. Patient to return per AIT treatment regimen schedule. [id number] Shaji yanes MD OFFICE [address] [place] [address] 8 04/22/2020 11:25:35 04/22/2020 12:36:56 Allergy to mold 900720559 Z91.048 2 INJ [id number] Shjai yanes MD OFFICE [address] [place] [address] 8 05/20/2020 10:49:56 05/20/2020 11:52:41 Allergy to mold 315072247 Z91.048 2 INJ [id number] Shaji yanes MD OFFICE [address] [place] [address] 8 06/13/2020 14:01:44 06/13/2020 18:15:03 Allergic rhinitis caused by pollen 47634367 J30.1 Patient received allergy immunother apy per patient's AIT regimen. No complicati ons noted. Patient to return per AIT treatment regimen schedule. [id number] Shaji yanes MD OFFICE [address] [place] [address] 8 07/11/2020 11:52:29 07/11/2020 18:30:22 Allergy to mold 385265584 Z91.048 2 INJ [id number] Shaji yanes MD OFFICE [address] [place] [address] 8 08/02/2020 16:22:51 08/02/2020 17:23:17 Allergy to mold 735071853 Z91.048 2 INJ [id number] Shaji yanes MD OFFICE [address] [place] [address] 8 09/02/2020 09:54:34 09/02/2020 17:40:28 Allergy to mold 532980736 Z91.048 FILLED SERUM 2 VIALS 2 INJ NO ANIMAL [id number] Shaji yanes MD OFFICE [address] [place] [address] 8 09/23/2020 11:00:43 09/23/2020 14:04:57 Allergy to mold 162704279 Z91.048 2 INJ [id number] Shaji yanes MD OFFICE [address] [place] [address] 8 10/21/2020 12:37:12 10/21/2020 14:11:39 Asthma 405284700 J45.909 The patient's asthma is doing extremely well. They're having no nocturnal awakenings and they're short acting beta agonist use during the day is limited. I will continue the patient on thier present medication s. Allergy to mold 85327185 3 Z91.048 2 INJ The patient is doing extremely well on the current regimen of medication s and immunother apy. I will continue this strategy in the future. [id number] Shaji yanes MD OFFICE [address] [place] [address] 8 11/11/2020 10:42:17 11/11/2020 14:29:30 Allergy to mold 924464730 Z91.048 2 INJ [id number] Shaji yanes MD OFFICE [address] [place] [address] 8 12/08/2020 10:29:05 12/08/2020 11:15:20 Allergy to mold 569380338 Z91.048 2 INJ [id number] Shaji yanes MD OFFICE [address] [place] [address] 8 01/06/2021 10:39:40 01/06/2021 13:05:20 Allergy to mold 988246159 Z91.048 FILLED SERUM 2 VIALS 2 INJ NO ANIMAL [id number] Yamilet Aaron MD OFFICE [address] [place] [address] 8 01/27/2021 12:10:52 01/27/2021 13:15:54 Allergy to mold 249104519 Z91.048 2 INJ Administra tion of influenza vaccine 50561333 Z23 Patient received a Fluad high-dose influenza vaccine for this season per verbal consent without complicati on. Potential side effects including injection site redness and soreness was reviewed with patient prior to administra tion. [id number] Shaji yanes MD OFFICE [address] [place] [address] 8 02/20/2021 12:26:36 02/20/2021 13:35:13 Allergy to mold 356344329 Z91.048 2 INJ [id number] EDSON Whitney OFFICE [address] [place], [place] [id number] 8 03/20/2021 13:03:05 03/20/2021 14:09:53 Acute sinusitis 42228108 J01.90 The patient's symptoms are consistent with a sinus infection. She will be treated with a 10-day course of Augmentin 875/125 mg tablets. If she fails to respond the course will be increased by another 10 days. If she has persistent symptoms further evaluation will be required. Allergic r hinitis caused by pollen 42269622 J30.1 Patient received allergy immunother apy per patient's AIT regimen. No complicati ons noted. Patient to return per AIT treatment regimen schedule. 2 INJ [id number] Shaji yanes MD OFFICE [address] [place] [address] 8 04/13/2021 11:06:46 04/13/2021 15:27:31 Allergy to mold 324352309 Z91.048 2 INJ [id number] Shaji yanes MD OFFICE [address] [place] [address] 8 05/08/2021 09:46:30 05/08/2021 10:35:02 Allergy to mold 118941144 Z91.048 FILLED SERUM 2 VIALS 2 INJ NO ANIMAL [id number] EDSON Whitney OFFICE [address] [place] [address] 8 06/05/2021 10:44:54 06/05/2021 12:12:24 Allergy to mold 651930980 Z91.048 2 INJ Allergic r hinitis caused by pollen 04543412 J30.1 Patient received allergy immunother apy per patient's AIT regimen. No complicati ons noted. Patient to return per AIT treatment regimen schedule. [id number] Shaji yanes MD OFFICE [address] [place] [address] 8 07/03/2021 11:09:49 07/03/2021 12:07:39 Allergy to mold 681347973 Z91.048 2 INJ [id number] Shaji yanes MD OFFICE [address] [place] [address] 8 07/31/2021 11:20:52 07/31/2021 11:59:09 Allergy to mold 051220042 Z91.048 2 INJ [id number] Shaji yanes MD OFFICE [address] [place] [address] 8 08/28/2021 10:36:59 08/28/2021 12:56:29 Allergic rhinitis caused by pollen 71921115 J30.1 [id number] Shaji yanes MD OFFICE [address] [place] [address] 8 09/21/2021 10:43:30 09/21/2021 11:40:27 Allergy to mold 413146004 Z91.048 FILLED SERUM 2 VIALS 2 INJ NO ANIMAL [id number] Shaji yanes MD OFFICE [address] [place] [address] 8 10/19/2021 11:19:20 10/19/2021 11:49:32 Allergy to mold 025150287 Z91.048 2 INJ [id number] Lyndsay Fang NP-C OFFICE [address] [place] [address] 8 11/14/2021 14:52:57 11/14/2021 15:49:08 Insect bite reaction 886092110 T63.481A Patient instructed to take another Zyrtec, since she already takes one daily to help better control her PMH of allergic rhinitis and was prescribed oral corticoste roids with directions to take four 10 mg tablets for two - three days. She will call should this treatment regimen cease to work well. Allergy to mold 48688360 3 Z88.8 Patient received allergy immunother apy (2 injections ) per patient's AIT regimen. No complicati ons noted. Patient to return per AIT treatment regimen schedule. [id number] Shaji yanes MD OFFICE [address] [place] [address] 8 12/14/2021 09:45:26 12/14/2021 12:04:13 Allergy to mold 233562531 Z91.048 2 INJ [id number] Shaji yanes MD OFFICE [address] [address] 01/08/2022 13:04:27 01/08/2022 14:05:30 Allergy to mold 493336904 Z91.048 2 INJ [id number] Yamilet Aaron MD OFFICE [address] [place] [address]226 8 02/06/2022 11:07:58 02/06/2022 13:44:31 Allergy to mold 682195526 Z91.048 FILLED SERUM 2 VIALS 2 INJ NO ANIMAL [id number] Shaji yanes MD OFFICE [address] [place] [address]8555[address] 8 03/06/2022 11:02:34 03/06/2022 12:45:13 Allergy to mold 398747818 Z91.048 2 INJ Administra tion of influenza vaccine 17390212 Z23 Patient received a Fluad high-dose influenza vaccine for this season per verbal consent without complicati on. Potential side effects including injection site redness and soreness was reviewed with patient prior to administra tion. [id number] Shaji yanes MD OFFICE [address] [place] [address]7725[address] 8 04/03/2022 11:10:30 04/03/2022 11:57:43 Allergy to mold 248866906 Z91.048 2 INJ [id number] Yamilet Aaron MD OFFICE [address] [place] [address]64[address] 8 04/30/2022 11:25:11 04/30/2022 12:10:02 Allergy to mold 166393162 Z91.048 2 INJ [id number] Shaji yanes MD OFFICE [address] [place] [address]358[address] 8 05/28/2022 11:05:18 05/28/2022 11:34:31 Allergy to mold 507584142 Z91.048 2 INJ [id number] Shaji yanes MD OFFICE [address] [place] [address]657-807 8 06/25/2022 11:04:02 06/25/2022 12:09:05 Allergy to mold 920960334 Z91.048 FILLED SERUM 2 VIALS 2 INJ NO ANIMAL [id number] Yamilet Aaron MD OFFICE [address] [place] [address] 8 07/25/2022 10:26:08 07/25/2022 10:43:18 Allergy to mold 589354259 Z91.048 2 INJ [id number] Shaji yanes MD OFFICE [address] [place] [address] 8 08/21/2022 10:44:48 08/21/2022 11:29:38 Allergy to mold 185836198 Z91.048 2 INJ [id number] Yamilet Aaron MD OFFICE [address] [place] [address] 8 09/18/2022 10:26:08 09/18/2022 10:39:10 Allergy to mold 239952851 Z91.048 2 INJ [id number] EDSON hWitney OFFICE [address] [place] [address] 8 10/17/2022 14:51:54 10/17/2022 15:58:20 Acute sinusitis 78350014 J01.90 The patient's symptoms are consistent with a sinus infection. She will be treated with a 10-day course of Augmentin 875/125 mg tablets. If she fails to respond the course will be increased by another 10 days. If she has persistent symptoms further evaluation will be required. Mild persi stent asthma 563700301 J45.31 The patient is having a flare in their asthma. This is characteri zed by increased beta agonist use, cough, and wheezing. This probably been triggered by a viral infection. Therapy will consist of a burst of oral corticoste roids as well as increasing doses of short acting beta agonist. An antibiotic will be added because of purulent sputum production . Acute pharyngitis 777598 003 J02.9 Patient's reported symptoms are consistent with an acute pharyngiti s. A rapid strep test was obtained during her visit. Results were negative. Allergy to mold 46626937 3 Z88.8 Patient received allergy immunother apy (2 injections ) per patient's AIT regimen. No complicati ons noted. Patient to return per AIT treatment regimen schedule. Elevated blood-pressure reading without diagnosis of hypertension 425406252 R03.0 Patient's blood pressure was slightly elevated at today's visit. She was made aware of this reading. She will continue to monitor and let her PCP know if her BP remains elevated. [id number] Shaji yanes MD OFFICE [address] [place] [address] 8 11/15/2022 09:53:08 11/15/2022 10:49:12 Allergy to mold 575307322 Z91.048 FILLED SERUM 2 VIALS 2 INJ NO ANIMAL [id number] EDSON Whitney OFFICE [address] [place] [address] 8 11/22/2022 15:18:51 11/22/2022 16:24:30 COVID-19 999197415 U07.1 Her symptoms are consistent with COVID-19. A rapid test was obtained during the visit. Results were negative. Patient was made aware. Acute sinusitis 26382664 J01.90 The patient's symptoms are consistent with a sinus infection. She will be treated with a 20-day course of Augmentin 875/125 mg tablets. If she fails to respond the course will be increased by another 10 days. If she has persistent symptoms further evaluation will be required. Mild persi stent asthma 677372387 J45.31 The patient is having a flare in their asthma. This is characteri zed by increased beta agonist use, cough, and wheezing. This probably been triggered by a viral infection. Therapy will consist of a burst of oral corticoste roids as well as increasing doses of short acting beta agonist. An antibiotic will be added because of purulent sputum production . [id number] Shaji yanes MD OFFICE [address] [place] [address] 8 12/11/2022 15:35:38 12/11/2022 15:48:46 Allergy to mold 084979843 Z91.048 2 INJ [id number] Shaji yanes MD OFFICE [address] [place] [address] 8 01/08/2023 10:35:30 01/08/2023 11:35:44 Allergy to mold 779271693 Z91.048 2 INJ [id number] Yamilet Aaron MD OFFICE [address] [place] [address] 8 02/04/2023 10:15:38 02/04/2023 14:03:50 Allergy to mold 080128267 Z88.8 2 INJ [id number] Shaji yanes MD OFFICE [address] [place] [address] 8 03/04/2023 10:31:44 03/04/2023 11:39:20 Allergy to mold 736363844 Z91.048 2 INJ Administra tion of influenza vaccine 69442552 Z23 Patient received a Fluad high-dose influenza vaccine for this season per verbal consent without complicati on. Potential side effects including injection site redness and soreness was reviewed with patient prior to administra tion. [id number] Shaji yanes MD OFFICE [address] [place] [address] 8 04/01/2023 11:20:33 04/01/2023 12:25:25 Allergy to mold 109444577 Z91.048 FILLED SERUM 2 VIALS 2 INJ NO ANIMAL [id number] Yamilet Aaron MD OFFICE [address] [place] [address] 8 05/02/2023 10:05:29 05/02/2023 11:22:15 Allergy to mold 908126059 Z88.8 2 INJ [id number] Lyndsay Fang NP-C OFFICE [address] [place] [address] 8 06/05/2023 11:04:40 06/05/2023 13:08:59 Asthma 322581078 J45.909 She is having a flare in [...] inhalation s twice daily. Influenza- like illness 54728562 B34.9 Her symptoms are consistent with influenza. A rapid flu swab was obtained during the visit. Results were negative. Patient was made aware. COVID-19 204679319 U07.1 Her symptoms are consistent with COVID-19. A rapid test was obtained during the visit. Results were negative. Patient was made aware. Allergy to mold 66990936 3 Z88.8 Patient received allergy immunother apy (2 injections ) per patient's AIT regimen. No complicati ons noted. Patient to return per AIT treatment regimen schedule. Pneumonia 833170190 J18. 9 Unclear if her symptoms are consistent with pneumonia. A chest x-ray was ordered. Once results are received they will be reviewed with patient. Acute bronchitis [id number] 2 J20.9 The patient's symptoms are most compatible with an acute bronchitis with cough productive of purulent secretions , fever and chills. The patient was begun on Augmentin 875/125 mg. A chest x-ray was ordered to rule out pneumonia. Once results are received they will be reviewed with patient. 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 [id number] Shaji yanes MD OFFICE [address] [place] [address] [id number] 8 07/04/2023 16:50:54 07/04/2023 17:28:48 Allergic rhinitis caused by pollen 21287405 J30.1 she will continue oon her allergy immunother apy. Asthma 535102800 J45.90 9 The patient's asthma is doing extremely well. They're having no nocturnal awakenings and they're short acting beta agonist use during the day is limited. I will continue the patient on their present medication s. [id number] Yamilet Aaron MD OFFICE [address] [place] [address] [id number] 8 07/29/2023 10:46:12 07/29/2023 13:39:31 Allergy to mold 098693033 Z88.8 2 INJ [id number] Yamilet Aaron MD OFFICE [address] [place] [address] [phone] 8 08/26/2023 09:58:14 08/26/2023 11:51:20 Allergy to mold 968467598 Z88.8 FILLED SERUM 2 VIALS 2 INJ NO ANIMAL [id number] Yamilet Aaron MD OFFICE [address] [place], [place] [phone] 8 09/25/2023 10:31:28 09/25/2023 11:15:15 Allergy to mold 300356756 Z88.8 2 INJ [id number] Yamilet Aaron MD OFFICE [address] [place], [place] [phone] 8 10/23/2023 09:55:08 10/23/2023 12:03:36 Allergy to mold 255803059 Z88.8 2 INJ [id number] Yamilet Aaron MD OFFICE [address] [place] [address] 8 11/20/2023 09:54:32 11/20/2023 10:55:57 Allergy to mold 732276428 Z88.8 2 INJ [id number] Yamilet Aaron MD OFFICE [address] [place], [place] [phone] 8 12/16/2023 10:24:57 12/16/2023 11:46:36 Allergy to mold 480268235 Z88.8 2 INJ [id number] Shaji yanes MD OFFICE [address] [place] [address] 8 01/09/2024 09:38:20 01/09/2024 11:23:36 Allergy to mold 841537635 Z91.048 FILLED SERUM 2 VIALS 2 INJ NO ANIMAL [id number] Yamilet Aaron MD OFFICE [address] [place] [address] 8 02/06/2024 11:25:27 02/06/2024 11:50:55 Allergy to mold 710448054 Z88.8 2 INJ [id number] Yamilet Aaron MD OFFICE [address] [place], [place] [id number] 8 02/27/2024 15:09:54 02/27/2024 15:29:02 Acute sinusitis 07792736 J01.90 Treat with Augmentin for 1 week. Bleeding from nose 59542 6005 R04.0 Likely due to staph overgrowth . Treat with mupirocin ointment twice a day for 5 days. Repeat monthly. She will check her salt packets to be sure they are labeled isotonic not hypertonic . Reduce frequency of sinus rinsing to avoid irritant/d rying effect Perennial allergic rhinitis with seasonal variation 683116464 J30.89 Continue allergy immunother apy, azelastine 2 sprays each nostril daily and montelukas t Mild inter mittent asthma 704480268 J45.20 She is a good candidate for reliever/c ontroller combinatio n therapy. Sample of Air Supra given. I recommend flu vaccine once she is done with the antibiotic [id number] Yamilet Aaron MD OFFICE [address] [place] [address] 8 03/09/2024 11:52:56 03/09/2024 12:03:27 Allergy to mold 604642552 Z88.8 2 INJ Administra tion of influenza vaccine 14020201 Z23 [id number] Yamilet Aaron MD OFFICE [address] [place] [address] 8 04/06/2024 11:38:52 04/06/2024 12:31:46 Allergy to mold 207758213 Z88.8 2 INJ [id number] EDSON Whitney OFFICE [address] [place] [address] 8 05/01/2024 11:18:18 05/01/2024 12:39:23 Allergy to mold 314750668 Z88.8 Patient received allergy immunother apy (2 INJECTIONS ) per patient's AIT regimen. No complicati ons noted. Patient to return per AIT treatment regimen schedule.2 inj [id number] Shaji yanes MD OFFICE [address] [place] [address] 8 05/29/2024 11:11:01 05/29/2024 11:29:58 Allergy to mold 016534377 Z91.048 FILLED SERUM 2 VIALS 2 INJ NO ANIMAL [id number] Shaji yanes MD OFFICE [address] [facility] [place] [address] 06/25/2024 10:29:03 06/25/2024 11:05:57 Allergy to mold 641698135 Z91.048 2 INJ [id number] Yamilet Aaron MD OFFICE [address] [facility] [place] [address] 07/20/2024 11:24:50 07/20/2024 12:40:32 Allergy to mold 979565288 Z88.8 2 INJ Health Concerns Section Related Observation LastModified by Organization Detai ls LastModified Time None Recorded Concern Status LastModified by Organization Details LastModified Time None Recorded Advance Directives Directive Y: Payers Encounter Date Sequence Insurance Name Policy Number Policy Sylvester Covered Member ID Sylvester Member ID Guarantor Name 04/06/2024 1 [employer] (MEDICARE REPLACEMENT PPO) [id number] 1 Phyllis L Mchugh [id number] Phyllis Mchugh 05/01/2024 1 [employer] (MEDICARE REPLACEMENT PPO) [id number] 1 Phyllis L Mchugh [id number] Phyllis Mchugh 05/29/2024 1 [employer] (MEDICARE REPLACEMENT PPO) [id number] 1 Phyllis L Mchugh [id number] Phyllis Mchugh 06/25/2024 1 [employer] (MEDICARE REPLACEMENT PPO) [id number] 1 Phyllis L Mchugh [id number] Phyllis Mchugh 07/20/2024 1 [employer] (MEDICARE REPLACEMENT PPO) [id number] 1 Phyllis L Mchugh [id number] Phyllis Mchugh OBGyn Episode No OBEpisode recorded.
--- OUTSIDE RECORDS SUMMARY | 2024-07-28 16:13 | XMS_ITS | Encounter Summary ---
Author Organization [facility] Healthcare Address [address] [place] [address] Care Team Providers Care Software Lead Name Role Phone Khoi Angulo MD Primary Care Provider [phone] Reason for Visit * Diagnostic Imaging (Routine) - Closed Specialty Diagnoses / Procedures Referred By Antonio yanes Referred To Contact Diagnoses Right hip pain Procedures XR Hip Right 2 or 3 Views Ritu Winston NP [address] [place] [address] Phone: tel: fax: Referral ID Status Reason Start Date Expiration Date Visits Re quested Visits Authorized [id number] Closed 07/28/2024 08/27/2025 1 1 Encounter Details Date Type Department Care Team (Late st Contact Info) Description 07/28/2024 7:41 AM CDT Hospital Encounter [facility] Orthopedics and Sports Medicine [address] [place] [phone] Arrived Social History Tobacco Use Types Packs/Day Years Used Date Smoking Tobacco: Never Smokeless Tobacco: Never Alcohol Use Standard Drinks/Week Comments Yes 0 (1 standard drink = 0.6 oz pur e alcohol) AUDIT-C Answer Date Recorded Q1: How often do you have a drink containing alc ohol? 2-4 times a month 08/26/2021 Q2: How many drinks containi ng alcohol do you have on a typical day when you are drinking? 1 or 2 08/26/2021 Q3: How often do you have si x or more drinks on one occasion? Never 08/26/2021 Personal Safety Answer Date Recorded Have you ever been in or are you currently in a harmful physical or emotional relationship or is someone making you feel afraid or unsafe? 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 Gender Identity Female 09/04/2023 2:08 PM CDT Sexual Orientation Not on file documented as of this encounter Plan of Treatment Not on file documented as of this encounter Procedures Procedure Name Priority Date/Time Associated Diagnosis Comments XR HIP RIGHT 2 OR 3 VIEWS Schedule Routine, Read Routine (OP Routine) 07/28/2024 8:25 AM CDT Right hip pain documented in this encounter Results * XR Hip Right 2 or 3 Views (07/28/2024 8:25 AM CDT) Anatomical Region Laterality Modality Lower Extremities, Hip, Pelvis Right D igital Radiography Narrative 07/28/2024 9:33 AM CDT Radiographs taken of the right hip today reveal severe degenerative changes with subchondral sclerosis, osteophyte formation, and diminished joint space. Ritu Winston TESTER REGULATOR IMG XR PROCEDURES Final Result documented in this encounter Visit Diagnoses Not on filedocumented in this encounter Care Teams Software Lead Relationship Specialty Start Date End Date Khoi Angulo MD PCP - General Internal Medicine 10/24/23 documented as of this encounter
--- OUTSIDE RECORDS SUMMARY | 2024-07-28 16:13 | XMS_ITS | Encounter Summary ---
Author Organization [facility] Healthcare Address [address] [place] [address] Care Team Providers Care Complaint Specialist Name Role Phone Khoi Angulo MD Primary Care Provider Reason for Referral * Diagnostic Imaging (Routine) - Closed Specialty Diagnoses / Procedures Referred By Contarash t Referred To Contact Diagnoses Right hip pain Procedures XR Hip Right 2 or 3 Views Ritu Winston NP [address] [facility] [address] [place] [address] Phone: tel: fax: Referral ID Status Reason Start Date Expiration Date Visits Re quested Visits Authorized [id number] Closed 07/28/2024 08/27/2025 1 1 Reason for Visit * Reason Comments Pain Encounter Details Date Type Department Care Team (Late st Contact Info) Description 07/28/2024 8:30 AM CDT Office Visit [facility] Orthopedics and Sports Medicine [address] [facility] [address] [place] [phone] Ritu Winston NP [address] [facility] [address] [place] [address] Right hip pain (Primary Dx); Primary osteoarthritis of right hip; Greater trochanteric bursitis of right hip Social History Tobacco Use Types Packs/Day Years [...] on file 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 Gender Identity Female 09/04/2023 2:08 PM CDT Sexual Orientation Not on file documented as of this encounter Last Filed Vital Signs Vital Sign Reading Time Taken Comments Blood Pressure 129/80 07/28/2024 8:29 AM CDT Pulse 86 07/28/2024 8:29 AM CDT Temperature - - Respiratory Rate - - Oxygen Saturation - - Inhaled Oxygen Concentration - - Weight 70.3 kg (155 lb) 07/28/2024 8:29 AM CDT Height 149.9 cm (4' 11 ) 07/28/2024 8:29 AM CDT Body Mass Index 31.31 07/28/2024 8:29 AM CDT documented in this encounter Progress Notes * Ritu Winston, KENISHA - 07/28/2024 8:30 AM CDT Images from the original note were not included. NEW PATIENT VISIT Subjective CHIEF COMPLAINT She had concerns including Pain of the Right Hip. HISTORY OF PRESENT ILLNESS Ms Mchugh is a pleasant 69 y.o. female who presents to clinic with the complaint of right hip pain.The pain has been present for about 3 years with no known precipitating factor, including injury. Patient states she was on levofloxacin a few years ago and suffered a hip flexor injury as a result of an adverse drug reaction. She completed physical therapy after that incident, and has been diligent about daily stretches and Pilates since that time. She localizes the pain to the anterior aspect of the hip and the groin, describing it as burning and rating it at a 4/10. The pain is worse with getting has a car after long car rides, if she skips 2 days of her stretches and long periods of standing stationary and improves with doing her stretches every day and taking ibuprofen. 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 Patient thought initially this pain was caused by her ongoing back issues. But after completing physical therapy last year thinks this is related to her hip. Patient recently fractured her right ankle and got an injury related blood clot in her lower extremity and has been taking Eliquis since that time. Patient states she is getting an ultrasound today to see if she can discontinue the use of her Eliquis. Patient was taking ibuprofen prior to her Eliquis use and found itmore effective than the Tylenol that she is currently taking. Shedenies any other complaints at this time. Pain Assessment Pain Assessment: 0-10 Pain Score: 4 Pain Location: Hip Pain Orientation: Right PAST MEDCIAL HISTORY She has a past medical history of Allergic rhinitis, Asthma (2012), Cancer (HCC) (1/3 of lung / carcinoid nodule), Cataract (removed / lenses now), GERD (gastroesophageal reflux disease), History of multiple allergies, HL (hearing loss), OTHER MEDICAL, OTHER MEDICAL (2005), OTHER MEDICAL (1986), OTHER MEDICAL, OTHER MEDICAL, OTHER MEDICAL, OTHER MEDICAL (08/24/2010), OTHER MEDICAL, OTHER MEDICAL (05/19/2012), Personal history of diseases of skin or subcutaneous tissue, Personal history of otherbenign neoplasm, Rosacea, and Tinnitus. PAST SURGICAL HISTORY She has a past surgical history that includes Other surgical history (2006); Other surgical history; Tubal ligation (1983); Other surgical history; Bunionectomy (1994); Hysterectomy; Other surgical history (2005); Hysterectomy (1996); Other surgical history (2005); Colonoscopy (2019); Bronchoscopy (2019); and Cataract extraction (2020). MEDICATIONS She has a current medication list which includes the following prescription(s): acidophilus-pectin,citrus, airsupra, apixaban, azelastine, azelastine, biotin, budesonide, budesonide, uuvmmewbzn-mvvrcqte-bgluaaomvo, cholecalciferol, eliquis, esomeprazole , montelukast, mupirocin, mv,ca,vgx-vz-cnbhie comp #[id number], rosuvastatin, and turmeric root extract. ALLERGIES She is allergic to levofloxacin, adhesive, qcizniwa-zawnlfoluk-lpnbhfclc, nweawtuy-koituzdgwih-osjrfizko, white petrolatum, adhesive tape-silicones, bacitracin, latex, neomycin, polymyxin b, azithromycin, codeine, diphenhydramine, and mineral oil-hydrophil petrolat. SOCIAL HISTORY She reports that she has never smoked. She has never used smokeless tobacco. She reports that she does not use drugs. Patient reports consuming alcoholic drinks , with a daily consumption of drinks. Patient denies daily consumption of 6 or more alcoholic drinks at one occasion. FAMILY HISTORY Her family history includes Asthma in her father; Breast cancer in her mother; Cancer in her mother; Coronary artery disease in her father; Diabetes in her father and mother; Hearing loss in her father; Heart attack in her father; Heart failure in her father; Hypertension in her brother, father, and mother; Memory loss in her mother; Thyroid disease in her mother. REVIEW OF SYSTEMS Review of Systems Constitutional: Negative for chills and fever. HENT: Negative for facial swelling and voice change. Eyes: Negative for discharge. Respiratory: Negative for apnea and shortness of breath. Cardiovascular: Negative for chest pain. Gastrointestinal: Negative for abdominal pain, nausea and vomiting. Genitourinary: Negative for flank pain. Musculoskeletal: Positive for arthralgias, gait problem and myalgias. Skin: Negative for color change. Neurological: Negative for dizziness and syncope. Psychiatric/Behavioral: Negative for agitation and confusion. Objective PHYSICAL EXAM BP 129/80 Pulse 86 Ht 149.9 cm (4' 11 ) Wt 70.3 kg (155 lb) BMI 31.31 kg/m?? Spine Right strength The patient has pain with strength testing the right hip abductior. Right hip Inspection Erythema: absent Edema: absent Swelling: absent Effusion: absent Skin temperature: normal Surgical scar/wound: absent. Gait: antalgic Limp: slight Supportive device: none Limb length: equal. Palpation Tenderness: absent. The tenderness is located in the greater trochanter, abducters, adducters and deep rotators. Radiating pain: no. Pop or click: no. Pelvic stability AP stress: stable Pelvic stability lateral stress: stable Range of motion The patient has normal range of motion of the right hip. The patient has reduced range of motion of the right hip. The patient has pain with range of motion of the right hip. Stability The patient has normal stabiltiy of the right hip. Strength The patient has 5/5 strength throughout. The patient has 5/5 strenght throughout with exceptions as noted below. Hip abduction: 3/5. Pain with hip abduction: yes Neurovascular The patient has normal vascular on the right side of their body. The patient has normal sensation. Tests Anterior impingement: positive Posterior impingement: posterior Lateral impingement: positive Anterior apprehension: posterior GABI: positive Resisted SLR (straight leg raise): positive REVIEW OF X-RAYS/STUDIES/LABS XR Hip Right 2 or 3 Views Radiographs taken of the right hip today reveal severe degenerative changes with subchondral sclerosis, osteophyte formation, and diminished joint space. Assessment/Plan Phyllis Ortega was seen today for pain. Diagnoses and all orders for this visit: Right hip pain - XR Hip Right 2 or 3 Views PLAN I discussed with Ms Mchugh the nature of her condition and treatment options. She has severe osteoarthritis of her right hip and greater trochanteric bursitis.She is in understanding that definitive management for her severe osteoarthritis is total hip arthroplasty but is hoping to forestall for some time. I recommended conservative management at this time including antiinflammatories, activity modification, and intraarticular steroid injection. She would like to hold off on an intraarticular steroid injection until she finds out if she has to continue on her Eliquis. She is able to discontinue her Eliquis after her ultrasound today she would like to resume taking ibuprofen and see if that helps with her symptoms. Patient also states that she would like to decline a bursal steroid injection today as she believes her roller and some topical Voltaren when she gets home. She may return to clinic as needed for reevaluation. She should call the office should She have any concerns or questio ns. Ritu Winston NP documented in this encounter Plan of Treatment Not on [...] formation, and diminished joint space. Ritu Winston BILLING CUSTOMER SERVICE REPRESENTATIVE IMG XR PROCEDURES Final Result documented in this encounter Visit Diagnoses Diagnosis Right hip pain- Primary Pain in joint, pelvic region and thigh Primary osteoarthritis of right hip Greater trochanteric bursitis of right hip documented in this encounter Care Teams Complaint Specialist Relationship Specialty Start Date End Date Khoi Angulo MD PCP - General Internal Medicine 10/24/23 documented as of this encounter
--- OUTSIDE RECORDS SUMMARY | 2024-07-28 16:13 | XMS_ITS | Referral Summary ---
Author Organization [facility] Address [address] [place] [address] Care Team Providers Care Director Of Orthopedics Name Role Phone Khoi Angulo MD Primary Care Provider [phone] Encounters Date Type Department Care Team Description 07/28/2024 7:41 AM CDT Hospital Encounter [facility] Orthopedics and Sports Medicine [address] [place] [address] [address] [address] Arrived 07/28/2024 8:30 AM CDT Office Visit [facility] Orthopedics and Sports Medicine [address] [place] [phone] Ritu Winston NP Right hip pain (Primary Dx); Primary osteoarthritis of right hip; Greater trochanteric bursitis of right hip 07/20/2024 9:45 AM CDT Procedure visit [facility] Otolaryngology [address] [place] [address] Medical Office Building [address] [place] [address] Macey Hubbard Au.D. Sensorineural hearing loss, asymmetrical (Primary Dx) 07/13/2024 8:10 AM SENIOR INSTRUMENTATION ENGINEER - 07/13/2024 11:59 PM SENIOR INSTRUMENTATION ENGINEER Hospital Encounter [facility] [address] [place] [phone] Closed high lateral malleolus fracture, right, initial encounter Discharge Disposition: Discharge to home or self care 07/13/2024 8:00 AM SENIOR INSTRUMENTATION ENGINEER Office Visit [facility] Orthopaedic Surgery [address] [place] [address] 2[address] Floor [address] [place] [phone] Arnaldo Frye MD Closed high lateral malleolus fracture, right, initial encounter (Primary Dx) 06/15/2024 2:20 PM SENIOR INSTRUMENTATION ENGINEER - 06/15/2024 11:59 PM SENIOR INSTRUMENTATION ENGINEER Hospital Encounter [facility] [address] [place] [phone] Closed high lateral malleolus fracture, right, initial encounter Discharge Disposition: Discharge to home or self care 06/15/2024 2:10 PM SENIOR INSTRUMENTATION ENGINEER Office Visit [facility] Orthopaedic Surgery [address] [place] [address] 2[address] [place] [phone] Arnaldo Frye MD Closed high lateral malleolus fracture, right, initial encounter (Primary Dx) 05/21/2024 2:48 PM SENIOR INSTRUMENTATION ENGINEER - 05/21/2024 11:59 PM SENIOR INSTRUMENTATION ENGINEER Hospital Encounter [facility] [address] [place] [phone] Right ankle pain, unspecified chronicity Discharge Disposition: Discharge to home or self care 05/21/2024 2:20 PM SENIOR INSTRUMENTATION ENGINEER Office Visit [facility] Orthopaedic Surgery [address] [place] [address] Floor [address] [place] [phone] Arnaldo Frye MD Left ankle pain, unspecified chronicity (Primary Dx); Closed high lateral malleolus fracture, right, initial encounter from Last 3 Months Allergies Active Allergy Reactions Criticality Noted Date Comments Adhesive Hives Medium Adhesive Tape-Silicones Azithromycin Other (See comments) Low 11/03/2019 Bacitracin Codeine Itching,Other (See comments) Low 04/22/2012 Reaction: Itching, , Diphenhydramine Other (See comments) Low 04/13/2024 Latex Levofloxacin Joint pain,Muscle pain High 06/05/2023 Mineral Oil-Hydrophil Petrolat Other (See comments) Low 04/29/2023 Neomycin Kvpwhkfe-Gfdtgrkglf-Nukmj yxin Hives Medium 10/20/2018 Geoenmoy-Wkobkatbxdb-Eplf myxnb Hives Medium Polymyxin B White Petrolatum Hives Medium Medications esomeprazole DR (NexIUM) 20 mg capsule daily 5 Active cholecalciferol (VITAMIN D-3) 1,000 unit tablet Vitamin D3 1,000 unit tablet Take by oral route. Active biotin 10 mg tablet Active rosuvastatin (CRESTOR) 20 mg tablet TK 1 T PO D 0 Active azelastine (ASTELIN) 137 mcg (0.1 %) nasal sprayIndications :Chronic rhinitis,Chronic sinusitis, unspecified location 1-2 sprays in each nostril bid. 30 mL 11 2 Active turmeric root extract 500 mg capsule Take by mouth Active budesonide (PULMICORT) 0.5 mg/2 mL nebulizer solution Mix 1 capsule/ampule in 250 mL of saline irrigations (NeilMed Sinus Rinse Bottle) and irrigate each nostril with half of the bottle twice daily. 360 mL 4 3 Active mupirocin (BACTROBAN) 2 % ointment Apply topically 3 (three) times a day Nasal cavity 22 g 6 4 Active acidophilus-pect in, citrus 100 million cell-10 mg capsule Take by mouth Activ e mv,Ca,min-FA-her bal comp #223 400 mcg tablet Take by mouth A ctive azelastine (ASTELIN) 137 mcg (0.1 %) nasal spray Administer 1-2 sprays into each nostril 2 (two) times a day Use in each nostril as directed 120 mL 11 4 Active budesonide (PULMICORT) 0.5 mg/2 mL nebulizer solution Mix 1 capsule/ampule in 250 mL of saline irrigations (NeilMed Sinus Rinse Bottle) and irrigate each nostril with half of the bottle twice daily. 120 mL 11 4 Active montelukast (SINGULAIR) 10 mg tabletIndication s:Chronic rhinitis Take one tablet daily 90 tablet 3 4 Active Airsupra 90-80 mcg/actuation HFA aerosol inhaler INHALE 2 PUFFS BY MOUTH EVERY 4 HOURS NEEDED FOR CHEST TIGHTNESS OR COUGHING OR WHEEZING. DO NOT EXCEED 12 PUFFS IN 24 HOURS 4 Active budesonide-glyco pyr-formoterol (BREZTRI) 160-9-4.8 mcg/actuation inhaler Inhale 2 puffs twice a day by inhalation route for 14 days. 4 Active apixaban 5 mg (74 tabs) tablets,dose pack Take 10 mg (2 tablets) by mouth 2 (two) times a day for 7 days, then take 5 mg (1 tablet) by mouth 2 (two) times a day thereafter. 74 tablet 4 Active Eliquis 5 mg tablet 5 Active Active Problems Problem Noted Date Diagnosed Date Closed nondisplaced fracture of lateral malleolus of right fibula 04/13/2024 Other chest pain 04/01/2023 Palpitations 04/01/2023 Tinnitus 07/20/2022 Sensorineural hearing loss, asymmetrical 021 Dizziness and giddiness 12/15/2020 Multinodular goiter (nontoxic) 01/11/2020 Assessment & Plan (04/29/2023 10:57 AM SENIOR INSTRUMENTATION ENGINEER): Patient with multiple small thyroid nodules on both sides, largest of which on the left side measuring 1.5 cm remains of low suspicion (TR3) and technically does not meet criteria for fine-needle aspiration. This has been stable overall. Patient clinically and biochemically euthyroid. No compressive symptoms. No indication for FNA Follow up neck US in 2-3 years Assessment & Plan (04/25/2021 3:55 PM SENIOR INSTRUMENTATION ENGINEER): Patient with multiple small thyroid nodules on both sides, largest of which on the left side measuring 1.5 cm remains of low suspicion (TR3) and technically does not meet criteria for fine-needle aspiration. This has been stable overall. Patient clinically and biochemically euthyroid. No compressive symptoms. No indication for FNA Follow up neck US in 2 years Assessment & Plan (01/24/2021 12:16 PM CDT): Patient with multiple small thyroid nodules on both sides, largest of which on the left side measuring 1.6 cm remains of low suspicion and technically does not meet criteria for fine-needle aspiration. This has been stable overall. Bedside neck ultrasound 12/2019 showed multiple thyroid nodules on both sides, largest of which on the left side which is isoechoic mixed and TR 3. Right nodules are small and mainly cystic Patient clinically and biochemically euthyroid. No compressive symptoms. Will obtain formal neck US here within 3-6 months. Will decide on FNA based on results. Check TFTs today. Assessment & Plan (01/11/2020 12:42 PM CDT): Patient with multiple small thyroid nodules on both sides, largest of which on the left side measuring 1.6 cm remains of low suspicion and technically does not meet criteria for fine-needle aspiration. This has been stable overall. No indication for neck ultrasound every 6 months. Potentially she can follow up in 1 year with neck ultrasound and possibly FNA if nodule size on the left side is more than 2 cm. Bedside neck ultrasound today suggest multiple thyroid nodules on both sides, largest of which on the left side which is isoechoic mixed and TR 3. Right nodules are small and mainly cystic Alternatively, if patient feel very anxious about following up on this nodule we could obtain fine-needle aspiration this year and if it is benign, she may plan follow-up in 2-3 years with neck ultrasound. This is based on patient preference rather than ACR-TIRADS/JERO guidelines Patient is interested in fine-needle aspiration sooner, she will think about it and let me know if she has a preference on when. For the time being, we scheduled her for return in 1 year with neck ultrasound. 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 Stage I at time of resection. Asthma 03/11/2012 Overview (11/03/2019): Asthma Vitamin D deficiency 03/11/2012 Overview (08/17/2016): Hypovitaminosis D Assessment & Plan (01/24/2021 12:16 PM CDT): Continue vitamin D supplementation. Check vitamin D level today. Assessment & Plan (01/11/2020 12:43 PM CDT): Advised on daily required dose Resolved Problems Problem Noted Date Diagnosed Date Resolved Date Benign carcinoid tumor 02/28/201710/22 Atopic rhinitis 09/26/2013 10/22/2017 Overview (08/17/2016): ALLERGIC RHINITIS NOS Immunizations Immunization Administration Dates Next Due Hep B Vaccine 05/13/1999 Influenza Virus Vaccine Trivalent Mdv 01/29/2020 Influenza, Quadrivalent, Spl it, Intramuscular 03/02/2019 Influenza, Quadrivalent, Spl it, Preservative Free, Intramuscular 02/16/2019,02/18/2018 Influenza, Split 03/11/2012,02/20/2011, 0 Influenza, Trivalent, IM (MDV) 03/27/2014 MMR 10/28/2018 Moderna SARS-CoV-2 Monovalen t Vaccination (12+ YRS) 08/02/2020 Pneumococcal Conjugate PCV 13 05/08/2018 Pneumococcal Polysaccharide PPV23 02/26/2020 Td, adsorbed 08/24/2010 Tdap 11/25/2018 ZOSTER Recombinant 01/01/2020,11/06/2019 Social History Tobacco Use Types Packs/Day Years Used Date Smoking Tobacco: Never Smokeless Tobacco: Never Tobacco Cessation:Counseling Given: Not Answered Alcohol Use Standard Drinks/Week Comments Yes 0 [...] on file Legal Sex Female 11:59 PM SENIOR INSTRUMENTATION ENGINEER Gender Identity Female 09/04/2023 2:08 PM CDT Sexual Orientation Not on file Last Filed Vital Signs Vital Sign Reading Time Taken Comments Blood Pressure 129/80 07/28/2024 8:29 AM CDT Pulse 86 07/28/2024 8:29 AM CDT Temperature 36.4 C (97.6 F) 04/20/2024 4:50 PM SENIOR INSTRUMENTATION ENGINEER Respiratory Rate 16 04/20/2024 8:12 PM SENIOR INSTRUMENTATION ENGINEER Oxygen Saturation 99% 04/20/2024 8:12 PM SENIOR INSTRUMENTATION ENGINEER Inhaled Oxygen Concentration - - Weight 70.3 kg (155 lb) 07/28/2024 8:29 AM CDT Height 149.9 cm (4' 11 ) 07/28/2024 8:29 AM CDT Body Mass Index 31.31 07/28/2024 8:29 AM CDT Plan of Treatment Not on file Procedures Procedure Name Priority Date/Time Associated Diagnosis Comments XR HIP RIGHT 2 OR 3 VIEWS Schedule Routine, Read Routine (OP Routine) 07/28/2024 8:25 AM CDT Right hip pain XR ANKLE RIGHT 3 OR MORE VIEWS Schedule Routine, Read Routine (OP Routine) 07/13/2024 8:55 AM SENIOR INSTRUMENTATION ENGINEER Closed high lateral malleolus fracture, right, initial encounter XR ANKLE RIGHT 3 OR MORE VIEWS Schedule Routine, Read Routine (OP Routine) 06/15/2024 2:35 PM SENIOR INSTRUMENTATION ENGINEER Closed high lateral malleolus fracture, right, initial encounter XR ANKLE RIGHT 3 OR MORE VIEWS Schedule Routine, Read Routine (OP Routine) 05/21/2024 2:55 PM SENIOR INSTRUMENTATION ENGINEER Right ankle pain, unspecified chronicity COLONOSCOPY Routine 12/07/2019 from Last 3 Months or Most Recently Relevant to Health Maintenance Results * XR Hip Right 2 or 3 Views (07/28/2024 8:25 AM CDT) Anatomical Region Laterality Modality Lower Extremities, Hip, Pelvis Right D igital Radiography Narrative 07/28/2024 9:33 AM CDT Radiographs taken of the right hip today reveal severe degenerative changes with subchondral sclerosis, osteophyte formation, and diminished joint space. Ritu Winston NP IMG XR PROCEDURES Final Result * XR Ankle Right 3+ View (07/13/2024 8:55 AM SENIOR INSTRUMENTATION ENGINEER) Anatomical Region Laterality Modality Lower Extremities, Ankle Right Compute d Radiography 07/13/2024 9:02 AM SENIOR INSTRUMENTATION ENGINEER Impressions 07/13/2024 9:02 AM SENIOR INSTRUMENTATION ENGINEER 1. Unchanged right distal fibular Arellano A fracture. Electronically signed by: Yoseph Duarte M.D. Narrative 07/13/2024 9:02 AM SENIOR INSTRUMENTATION ENGINEER EXAMINATION: XR ANKLE RIGHT 3 OR MORE VIEWS HISTORY: Right lateral ankle fracture follow-up FINDINGS: 3 view examination of the weightbearing right ankle is read with comparison to 06/15/2024. Unchanged transversely oriented right distal fibular fracture below the level of the tibial plafond and. No new fracture or dislocation. 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 Talar dome is intact. Mild midfoot osteoarthritis. Small distal Achilles tendon enthesophyte and small plantar calcaneal spur. Procedure Note Kwaku Duarte, Yoseph Victoria MD - 07/13/2024 EXAMINATION: XR ANKLE RIGHT 3 OR MORE VIEWS HISTORY: Right lateral ankle fracture follow-up FINDINGS: 3 view examination of the weightbearing right ankle is read with comparison to 06/15/2024. Unchanged transversely oriented right distal fibular fracture below the level of the tibial plafond and. No new fracture or dislocation. 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 Talar dome is intact. Mild midfoot osteoarthritis. Small distal Achilles tendon enthesophyte and small plantar calcaneal spur. IMPRESSION: 1. Unchanged right distal fibular Arellano A fracture. Electronically signed by: Yoseph Duarte M.D. Arnaldo Frye MD [facility] [place]ED[facility] Lia l Result * XR Ankle Right 3+ View (06/15/2024 2:35 PM SENIOR INSTRUMENTATION ENGINEER) Anatomical Region Laterality Modality Lower Extremities, Ankle Right Compute d Radiography 06/15/2024 2:58 PM SENIOR INSTRUMENTATION ENGINEER Impressions 06/15/2024 2:58 PM SENIOR INSTRUMENTATION ENGINEER 1. Unchanged nondisplaced lateral malleolus fracture. Electronically signed by: Eliezer Lipscomb MD Narrative 06/15/2024 2:58 PM SENIOR INSTRUMENTATION ENGINEER EXAMINATION: XR ANKLE RIGHT 3 OR MORE VIEWS HISTORY: Ankle pain. FINDINGS: Comparison to 05/21/2024. Unchanged nondisplaced lateral malleolus fracture below the syndesmosis. No significant interval osseous fusion. No new fractures. Mild midfoot osteoarthritis. Mild soft tissue swelling most prominent laterally. Small plantar calcaneal spur and Achilles enthesophyte. Procedure Note Eliezer Lipscomb MD - 06/15/2024 EXAMINATION: XR ANKLE RIGHT 3 OR MORE VIEWS HISTORY: Ankle pain. FINDINGS: Comparison to 05/21/2024. Unchanged nondisplaced lateral malleolus fracture below the syndesmosis. No significant interval osseous fusion. No new fractures. Mild midfoot osteoarthritis. Mild soft tissue swelling most prominent laterally. Small plantar calcaneal spur and Achilles enthesophyte. IMPRESSION: 1. Unchanged nondisplaced lateral malleolus fracture. Electronically signed by: Eliezer Lipscomb MD Arnaldo Frye MD [facility] [place]ED[facility] Lia l Result * XR Ankle Right 3 or More Views (05/21/2024 2:55 PM SENIOR INSTRUMENTATION ENGINEER) Anatomical Region Laterality Modality Lower Extremities, Ankle Right Compute d Radiography 05/21/2024 3:56 PM SENIOR INSTRUMENTATION ENGINEER Impressions 05/21/2024 5:13 PM SENIOR INSTRUMENTATION ENGINEER Healing Arellano A fracture of the lateral malleolus. Dictated by: Blaise Monet M.D. The radiology attending physician has personally reviewed this study, and had reviewed and/or edited this written report and agrees with it. Electronically signed by: Yoseph Duarte M.D. Narrative 05/21/2024 5:13 PM SENIOR INSTRUMENTATION ENGINEER EXAMINATION: XR ANKLE RIGHT 3 OR MORE VIEWS HISTORY: Right ankle. COMPARISON: 04/27/2024 FINDINGS: Healing nondisplaced transverse fracture of lateral malleolus below the level of the syndesmosis. No new fracture or dislocation. The ankle mortise and talar dome are intact. No syndesmotic widening. Mild tibiotalar joint osteoarthritis. Normal bone alignment. Achilles enthesophyte and small plantar calcaneal spur. Disuse osteopenia. Procedure Note Yoseph Norman MD - 05/21/2024 EXAMINATION: XR ANKLE RIGHT 3 OR MORE VIEWS HISTORY: Right ankle. COMPARISON: 04/27/2024 FINDINGS: Healing nondisplaced transverse fracture of lateral malleolus below the level of the syndesmosis. No new fracture or dislocation. The ankle mortise and talar dome are intact. No syndesmotic widening. Mild tibiotalar joint osteoarthritis. Normal bone alignment. Achilles enthesophyte and small plantar calcaneal spur. Disuse osteopenia. IMPRESSION: Healing Arellano A fracture of the lateral malleolus. Dictated by: Blaise Monet M.D. The radiology attending physician has personally reviewed this study, and had reviewed and/or edited this written report and agrees with it. Electronically signed by: Yoseph Duarte M.D. us Arnaldo Frye MD IMG XR PROCEDURES Lia l Result * Colonoscopy (12/07/2019) Anatomical Region Laterality Modality Other us Milad Matamoros MD ENDOSCOPY PROCEDURES Final Result from Last 3 Months or Most Recently Relevant to Health Maintenance Insurance T MEDICARE T MEDICARE AET MEDICARE AETNA MEDICARE Care Teams Director Of Orthopedics Relationship Specialty Start Date End Date Khoi Angulo MD PCP - General Internal Medicine 10/24/23
--- OUTSIDE RECORDS SUMMARY | 2024-07-28 16:13 | XMS_ITS | Clinical Summary ---
Author Organization [facility] Address [address] [place] [address] Care Team Providers Care Skilled Nursing Professional Name Role Phone Khoi Angulo MD Primary Care Provider [phone] Allergies Active Allergy Reactions Criticality Noted Date Comments Adhesive Hives Medium Adhesive Tape-Silicones Azithromycin Other (See comments) Low 11/03/2019 Bacitracin Codeine Itching,Other (See comments) Low 04/22/2012 Reaction: Itching, , Diphenhydramine Other (See comments) Low 04/13/2024 Latex Levofloxacin Joint pain,Muscle pain High 06/05/2023 Mineral Oil-Hydrophil Petrolat Other (See comments) Low 04/29/2023 Neomycin Nhtwsyvk-Nqbygdxtxv-Tnhan yxin Hives Medium 10/20/2018 Auwhfiog-Usiuskjqfch-Gwra myxnb Hives Medium Polymyxin B White Petrolatum [...] 01/11/2020 Assessment & Plan (04/29/2023 10:57 AM ACTING SECTION CHIEF): Patient with multiple small thyroid nodules on both sides, largest of which on the left side measuring 1.5 cm remains of low suspicion (TR3) and technically does not meet criteria for fine-needle aspiration. This has been stable overall. Patient clinically and biochemically euthyroid. No compressive symptoms. No indication for FNA Follow up neck US in 2-3 years Assessment & Plan (04/25/2021 3:55 PM ACTING SECTION CHIEF): Patient with multiple small thyroid nodules on [...] (11/17/2019): Added automatically from request for surgery [id number] Thyroid nodule 11/03/2019 Overview (04/29/2023): Bedside neck [...] 09/26/2013 10/22/2017 Overview (08/17/2016): ALLERGIC RHINITIS NOS Encounters Date Type Department Care Team Description 07/28/2024 8:30 AM CDT Office Visit [facility] Medical [facility] Orthopedics and Sports Medicine [address] [place] [address] [address] [place] [address] Ritu Winston NP Right hip pain (Primary Dx); Primary osteoarthritis of right hip; Greater trochanteric bursitis of right hip 07/28/2024 7:41 AM CDT Hospital Encounter [facility] Orthopedics and Sports Medicine [address] [place] [address] [address] [place] [address] Arrived 07/20/2024 9:45 AM CDT Procedure visit [facility] Otolaryngology [address] [facility] Medical Office Building [address] [place] [phone] Macey Hubbard Au.D. Sensorineural hearing loss, asymmetrical (Primary Dx) 07/13/2024 8:10 AM ACTING SECTION CHIEF - 07/13/2024 11:59 PM ACTING SECTION CHIEF Hospital Encounter [facility] [address] [place] [address] Closed high lateral malleolus fracture, right, initial encounter Discharge Disposition: Discharge to home or self care 07/13/2024 8:00 AM ACTING SECTION CHIEF Office Visit [facility] Orthopaedic Surgery [address] [place] [address] 2[address] [place] [phone] Arnaldo Frye MD Closed high lateral malleolus fracture, right, initial encounter (Primary Dx) 06/15/2024 2:20 PM ACTING SECTION CHIEF - 06/15/2024 11:59 PM ACTING SECTION CHIEF Hospital Encounter [facility] [address] [place] [id number] Closed high lateral malleolus fracture, right, initial encounter Discharge Disposition: Discharge to home or self care 06/15/2024 2:10 PM ACTING SECTION CHIEF Office Visit [facility] Orthopaedic Surgery [address] [place] [address] 2[address] [place] [address] Arnaldo Frye MD Closed high lateral malleolus fracture, right, initial encounter (Primary Dx) 05/21/2024 2:48 PM ACTING SECTION CHIEF - 05/21/2024 11:59 PM ACTING SECTION CHIEF Hospital Encounter [facility] [address] [place] [phone] Right ankle pain, unspecified chronicity Discharge Disposition: Discharge to home or self care 05/21/2024 2:20 PM ACTING SECTION CHIEF Office Visit [facility] Orthopaedic Surgery [address] [place] [address] [address] [place] [phone] Arnaldo Frye MD Left ankle pain, unspecified chronicity (Primary Dx); Closed high lateral malleolus fracture, right, initial encounter from Last 3 Months Immunizations Immunization Administration Dates Next Due Hep [...] adsorbed 08/24/2010 Tdap 11/25/2018 ZOSTER Recombinant 01/01/2020,11/06/2019 Surgical History Surgery Date Site/Laterality Comments OTHER SURGICAL HISTORY 2006 FATTY TUMOR R ARM: SURGERY OTHER SURGICAL HISTORY FATTY TUMOR R LEG: SURGERY TUBAL LIGATION 1984 Bilateral tubal ligation OTHER SURGICAL HISTORY Vocal cord polyps: SURGERY BUNIONECTOMY 1994 bunionectomy HYSTERECTOMY Hysterectomy OTHER SURGICAL HISTORY 2006 exc. lipoma / rt. shoulder HYSTERECTOMY 1996 Hysterectomy OTHER SURGICAL HISTORY 2006 exc. rt. 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 Personal history of other benign neoplasm History of uterine leiomyoma - (Added by TW Conv) Personal history of diseases of skin or subcutaneous tissue History of rosacea - (A dded by TW Conv) Allergic rhinitis HL (hearing loss) GERD (gastroesophageal reflu x disease) Tinnitus Cancer (HCC) / of lung / carcin oid nodule Asthma 2012 Cataract removed / lenses now Family History Medical History Relation Name Comments Hypertension Brother Harley Cook Hypertension; Asthma Father Bhavik Cook Coronary artery disease Father Bahvik Cook [place] nary artery disease; Diabetes Father Bhavik Cook Diabetes mellit us; Hearing loss Father Bhavik Cook Heart attack Father Bhavik Cook Myocardial infa rction; Cause of : Myocardial infarction Heart failure Father Bhavik Cook Hypertension Father Bhavik Cook Breast cancer Mother Mary Cook Cancer -breas t; /Cancer, breast; Cancer Mother Mary Cook Diabetes Mother Mary Cook Diabetes melli tus; /FHx: diabetes mellitus - (Added by TW Conv) Hypertension Mother Mary Cook Hypertension; Memory loss Mother Mary Cook Thyroid disease Mother Mary Cook Relation Name Status Comments Brother Harley Cook Father Bhavik Cook (Age 75) Mother Mary Cook Social History Tobacco Use Types Packs/Day Years [...] on file Legal Sex Female 11:59 PM ACTING SECTION CHIEF Gender Identity Female 09/04/2023 2:08 PM CDT Sexual Orientation Not on file Obstetrics History Para Term AB IAB SAB Ectopic Multiple Livin g Live Births 1 1 1 1 1 Date Outcome GA Total Labor Labor/2nd/3rd Weight Sex Type Anes PTL Agnieszka A1 A5 Name Clin 10/24 Term 2.948 kg (6 lb 8 oz) F Vaginal Living Last Filed Vital Signs Vital Sign Reading Time Taken Comments Blood Pressure 129/80 07/28/2024 8:29 AM CDT Pulse 86 07/28/2024 8:29 AM CDT Temperature 36.4 C (97.6 F) 04/20/2024 4:50 PM ACTING SECTION CHIEF Respiratory Rate 16 04/20/2024 8:12 PM ACTING SECTION CHIEF Oxygen Saturation 99% 04/20/2024 8:12 PM ACTING SECTION CHIEF Inhaled Oxygen Concentration - - Weight 70.3 kg (155 lb) 07/28/2024 8:29 AM CDT Height 149.9 cm (4' 11 ) 07/28/2024 8:29 AM CDT Body Mass Index 31.31 07/28/2024 8:29 AM CDT Plan of Treatment Health Maintenance Due Date Last Done Comments Depression Screening 1955 Fall Risk Assessment 1955 Hepatitis C Screening 1955 Covid-19 Vaccine (2023-06 5 season) 2024 08/02/2020, 07/19/2020, 06/16/2020 Osteoporosis Screening-Bone Density Scan 11/19/2024 11/19/2022 Breast Cancer Screening-Mammogram 12/08/2024 024 Well Visit 65+ 12/08/2024 12/09/2023 DTaP/Tdap/Td Vaccine (2 - Td or Tdap) 11/25/2028 11/25/2018, 08/24/2010 Colon Cancer Screening-Colonoscopy 12/06/2029 12/07/2019, 12/07/2013 Hepatitis B Screening Completed 05/13/1999 Colon Cancer Screening-CT Colonography Discontinued 12/07/2019, 12/07/2013 Colon Cancer Screening-DNA Stool Discontinued 12/07/19 20, 12/07/2013 Colon Cancer Screening-FIT Discontinued 12/07/2019, Colon Cancer Screening-Sigmoidoscopy Discontinued 12/07/2019, 12/07/2013 Zoster Vaccine Completed 01/01/2020, 11/06/2019 Pneumococcal vaccine 65+ Completed 02/26/2020, 04/13 Influenza Vaccine Completed 03/09/2024, , 03/02/2019, Additional history exists Procedures Procedure Name Priority Date/Time Associated Diagnosis Comments XR HIP RIGHT 2 OR 3 VIEWS Schedule Routine, Read Routine (OP Routine) 07/28/2024 8:25 AM CDT Right hip pain XR ANKLE RIGHT 3 OR MORE VIEWS Schedule Routine, Read Routine (OP Routine) 07/13/2024 8:55 AM ACTING SECTION CHIEF Closed high lateral malleolus fracture, right, initial encounter XR ANKLE RIGHT 3 OR MORE VIEWS Schedule Routine, Read Routine (OP Routine) 06/15/2024 2:35 PM ACTING SECTION CHIEF Closed high lateral malleolus fracture, right, initial encounter XR ANKLE RIGHT 3 OR MORE VIEWS Schedule Routine, Read Routine (OP Routine) 05/21/2024 2:55 PM ACTING SECTION CHIEF Right ankle pain, unspecified chronicity COLONOSCOPY Routine [...] sclerosis, osteophyte formation, and diminished joint space. us Ritu Winston NP IMG XR PROCEDURES Final Result * XR Ankle Right 3+ View (07/13/2024 8:55 AM ACTING SECTION CHIEF) Anatomical Region Laterality Modality Lower Extremities, Ankle Right Compute d Radiography 07/13/2024 9:02 AM ACTING SECTION CHIEF Impressions 07/13/2024 9:02 AM ACTING SECTION CHIEF 1. Unchanged right distal fibular Arellano A fracture. Electronically signed by: Yosehp Duarte M.D. Narrative 07/13/2024 9:02 AM ACTING SECTION CHIEF EXAMINATION: XR ANKLE RIGHT 3 OR MORE [...] and small plantar calcaneal spur. Procedure Note Yoseph Norman MD - 07/13/2024 EXAMINATION: XR ANKLE RIGHT [...] fracture. Electronically signed by: Yoseph Duarte M.D. us Arnaldo Frye MD IMG XR PROCEDURES Lia l Result * XR Ankle Right 3+ View (06/15/2024 2:35 PM ACTING SECTION CHIEF) Anatomical Region Laterality Modality Lower Extremities, Ankle Right Compute d Radiography 06/15/2024 2:58 PM ACTING SECTION CHIEF Impressions 06/15/2024 2:58 PM ACTING SECTION CHIEF 1. Unchanged nondisplaced lateral malleolus fracture. Electronically signed by: Eliezer Lipscomb MD Narrative 06/15/2024 2:58 PM ACTING SECTION CHIEF EXAMINATION: XR ANKLE RIGHT 3 OR MORE [...] by: Eliezer Lipscomb MD Arnaldo Frye MD IMG XR PROCEDURES Lia l Result * XR Ankle Right 3 or More Views (05/21/2024 2:55 PM ACTING SECTION CHIEF) Anatomical Region Laterality Modality Lower Extremities, Ankle Right Compute d Radiography 05/21/2024 3:56 PM ACTING SECTION CHIEF Impressions 05/21/2024 5:13 PM ACTING SECTION CHIEF Healing Arellano A fracture of the lateral malleolus. Dictated by: Blaise Monet M.D. The radiology attending physician has personally reviewed this study, and had reviewed and/or edited this written report and agrees with it. Electronically signed by: Yoseph Duarte M.D. Narrative 05/21/2024 5:13 PM ACTING SECTION CHIEF EXAMINATION: XR ANKLE RIGHT 3 OR MORE [...] Most Recently Relevant to Health Maintenance Insurance [facility] MEDICARE [facility] MEDICARE Address: [facility] [id number] [place] [phone] AET MEDICARE T MEDICARE AET MEDICARE Care Teams Skilled Nursing Professional Relationship Specialty Start Date End Date Khoi Angulo MD PCP - General Internal Medicine 10/24/23
== END 2024-07-28 14:26 | disposition home or self-care (01) ==
LOC: CHSIMG 14:27
PROVIDERS: PCP Internal Medicine; Visit Provider Internal Medicine
DX: I82.401 Acute embolism and thrombosis of unspecified deep veins of right lower extremity (principal)
CPT/HCPCS: 93971